=== PATIENT | male | born 2000 | race Caucasian/White ===

== ENCOUNTER 2021-05-09 14:15 | Inpatient (IN) | payer BC, MEDICAID, SELFPAY ==
[2021-05-09 14:57] VITALS: BP 142/98; PULSE 115; RESP 20; TEMP 36.9; O2SAT 100; BMI 21.9
--- NOTE | 2021-05-09 15:21 | ED_ITS ---
HPI - Psych General Chief Complaint: Psychiatric Symptoms Stated Complaint: CRISIS Time Seen by Provider: 05/09/21 15:20 Source: patient Mode of arrival: ambulatory Limitations: no limitations History of Present Illness HPI Narrative: 20-year-old male, no known medical history presents to the emergency department stating he feels like he needs help. He states that today he had conversation with his family feels like he needs a psych evaluation, and placement into a psych facility. He states that for years he has been having intermittent thoughts of suicide, with various plans. At this time he says he thinks about suicide, but he knows he will do it. He denies homicidal ideation. He also states that at times he has visual hallucinations (clouds in the shantel appear like people), he denies tactile and auditory hallucinations. He states he is not followed by a psychiatrist. He denies alcohol, and tobacco use. He states he periodically smokes marijuana. He states that it was a family decision for him to come in and get evaluated. He states he wants help. He has never been hospitalized for psych issues. He also mentions he has been having racing thoughts. Denies depression, anxiety, HI, recent medication changes, pain, medical complaints, chest pain, fevers, chills, nausea, vomiting. MD complaint: suicidal ideation and hallucinations (Visual) Onset (ago): year(s) Duration: intermittent History of same: Yes Relieving factors: none Exacerbating factors: none Context: recent drug abuse ( Marijuana) Associated psychiatric symptoms: suicidal ideation and racing thoughts Associated symptoms: denies other symptoms Treatments prior to arrival: none If self harm: admits thoughts of self harm and has plan Related Data Allergies Allergy/AdvReac Type Severity Reaction Status Date / Time No Known Allergies Allergy Unverified 04/06/20 19:21 [No Known Allergies*] Review of Systems Review of Systems: Constitutional : No Fever, No Chills ENT/Mouth : No Ear Pain, No Nasal Congestion, No sore throat Eyes: No Eye Pain, No Swelling, No Redness Cardiovascular : No Chest Pain, No SOB Respiratory : No Cough, No Sputum, No Dyspnea Gastrointestinal : No Nausea, No Vomiting, No Diarrhea, No Hematochezia, No Melena Genitourinary : No Dysuria, No Urinary Frequency, No Hematuria Musculoskeletal : No Myalgias Skin : No Skin Lesions, No rash Neuro : No Weakness, No Numbness, No Paresthesias, No Dizziness, No Headache Psych : No Anxiety, No Depression, positive SI, No HI, + racing thoughts All other systems reviewed and are negative [facility] Past Medical History Attestation statement: The following information was validated with the patient. Source: old records reviewed and nursing notes reviewed Social History Social History Alcohol intake: unknown Patient Tobacco Use Status: Tobacco use Unknown Use of substances other than those prescribed or required for medical reasons: Unknown Advance Directives: No Advance Directives Information Provided: No Physical Exam Vital Signs: Vital Signs: Last Vital Signs Temp 98.2 F 05/09/21 17: Pulse 63 05/09/21 17: Resp 18 05/09/21 17: BP 128/66 05/09/21 17: Pulse Ox 100 05/09/21 17: Body Mass Index 21.9 Appearance: Alert. Oriented X3. No acute distress. Eyes: Pupils equal, round and reactive to light. ENT: Pharynx normal. Neck: Normal inspection. Neck supple. CVS: Normal heart rate and rhythm. Pulses normal. Respiratory: No respiratory distress. Breath sounds normal. Abdomen: Soft and nontender. Skin: Skin warm and dry. Normal skin color. Normal skin turgor. Extremities: No lower extremity edema. No calf ttp Psych: Patient is speaking rapidly, answering questions appropriately. Neuro: Oriented X 3. No motor deficit. No sensory deficit. CN II-VII intact Course Course Course Narrative: Physician observation started at 640pm. Patient placed in physician observation because the patient needed more time for crisis evaluation At the time observation was started the patient's vitals were stable, patient is alert and oriented , Neuro: nonfocal, CV RRR, Lungs clear MDM - Psych MDM Narrative Medical decision making narrative: 20-year-old male with no previous psych history, medical history presenting to the emergency department with racing thoughts, visual hallucination and suicidal ideation X1 year. He states he came in today, because his family suggested he get a psych evaluation, and be placed into a psych facility. No recent medication changes. Denies drug/tobacco/alcohol use. No previous psych admissions. He has no medical complaints at this time. At this time basic labs will be obtained, consult crisis has been put in, as well COVID, ethanol, UA, U tox. At this time the patient states he would not like any medication. Lab Data Result diagrams: 05/09/21 15:51 05/09/21 15:51 Labs: Lab Results 05/09/21 05/09/21 05/09/21 Range/Units 15:33 15:35 15:38 WBC (4.8-10.8) X10*3/uL RBC (4.60-5.80) X10*6/uL Hgb (14.0-18.0) g/dl Hct (42-52) % MCV (80-98) fL MCH (27.0-33.0) pg MCHC (31.0-36.0) g/dl RDW (11.0-16.0) % Plt Count (160-400) X10*3/uL MPV (9.4-12.4) fL Immature Gran % (Auto) (0.0-0.4) % Neut % (Auto) (45-73) % Lymph % (Auto) (20-40) % [place] % (Auto) (2-11) % Eos % (Auto) (0-4) % Baso % (Auto) (0-2) % Lymph # (Auto) (1.2-4.9) X10*3/uL [place] # (Auto) (0.1-1.2) X10*3/uL Eos # (Auto) (0.0-0.4) X10*3/uL Baso # (Auto) (0.0-0.2) X10*3/uL Abs Immat Gran (auto) (0.00-0.03) X10*3/uL Absolute Neuts (auto) (2.0-8.3) X10*3/uL Absolute Nucleated RBC (0.0-0.012) X10*3/uL Nucleated RBC % (auto) (0.0-0.2) /100WBC Urine Color STRAW Urine Appearance CLEAR Urine pH 7.0 (5.0-8.0) Ur Specific [place] <= 1.005 (1.005-1.025) Urine Protein NEG (NEG-TRACE) MG/DL Urine Glucose (UA) NEG (NEG) MG/DL Urine Ketones NEG (NEG) MG/DL Urine Blood NEG (NEG) Urine Nitrite NEG (NEG) Ur Leukocyte Esterase NEG (NEG) Urine Opiates Screen Not Detected (Not Detect) Urine Fentanyl Screen Not Detected (Not Detect) Ur Barbiturates Screen Not Detected (Not Detect) Ur Phencyclidine Scrn Not Detected (Not Detect) Ur Amphetamines Screen Not Detected (Not Detect) U Benzodiazepines Scrn Not Detected (Not Detect) Urine Cocaine Screen Not Detected (Not Detect) U Marijuana (THC) Screen Not Detected (Not Detect) COVID-19 (DIAZ) Negative (Negative) COVID-19 Clin Com See Note 05/09/21 Range/Units 15:51 WBC 5.3 (4.8-10.8) X10*3/uL RBC 5.28 (4.60-5.80) X10*6/uL Hgb 15.9 (14.0-18.0) g/dl Hct 46.4 (42-52) % MCV 87.9 (80-98) fL MCH 30.1 (27.0-33.0) pg MCHC 34.3 (31.0-36.0) g/dl RDW 12.4 (11.0-16.0) % Plt Count 141 L (160-400) X10*3/uL MPV 11.8 (9.4-12.4) fL Immature Gran % (Auto) 0.2 (0.0-0.4) % Neut % (Auto) 56.9 (45-73) % Lymph % (Auto) 27.2 (20-40) % [place] % (Auto) 10.0 (2-11) % Eos % (Auto) 5.1 H (0-4) % Baso % (Auto) 0.6 (0-2) % Lymph # (Auto) 1.4 (1.2-4.9) X10*3/uL [place] # (Auto) 0.5 (0.1-1.2) X10*3/uL Eos # (Auto) 0.3 (0.0-0.4) X10*3/uL Baso # (Auto) 0.0 (0.0-0.2) X10*3/uL Abs Immat Gran (auto) 0.01 (0.00-0.03) X10*3/uL Absolute Neuts (auto) 3.0 (2.0-8.3) X10*3/uL Absolute Nucleated RBC 0.000 (0.0-0.012) X10*3/uL Nucleated RBC % (auto) 0.0 (0.0-0.2) /100WBC Urine Color Urine Appearance Urine pH (5.0-8.0) Ur Specific [place] (1.005-1.025) Urine Protein (NEG-TRACE) MG/DL Urine Glucose (UA) (NEG) MG/DL Urine Ketones (NEG) MG/DL Urine Blood (NEG) Urine Nitrite (NEG) Ur Leukocyte Esterase (NEG) Urine Opiates Screen (Not Detect) Urine Fentanyl Screen (Not Detect) Ur Barbiturates Screen (Not Detect) Ur Phencyclidine Scrn (Not Detect) Ur Amphetamines Screen (Not Detect) U Benzodiazepines Scrn (Not Detect) Urine Cocaine Screen (Not Detect) U Marijuana (THC) Screen (Not Detect) COVID-19 (DIAZ) (Negative) COVID-19 Clin Com Discharge Plan Discharge Clinical Impression: Rhina
[2021-05-09 15:57] LABS: MANUAL DIFF FLAG NO
[2021-05-09 16:00] LABS: Appearance Urine CLEAR; Color Urine STRAW; Glucose Urine UA NEG (NEG); Leukocyte Esterase Urine NEG (NEG); Nitrite Urine NEG (NEG); Specific Gravity - Urine <= 1.005 (1.005-1.025); Urine Blood NEG (NEG); Urine Ketones NEG (NEG); Urine Protein NEG (NEG-TRACE)
[2021-05-09 16:00] LABS: Basophils Percent Auto 0.6 % (0-2); Eosinophils Absolute Auto 0.3 X10*3/uL (0.0-0.4); Eosinophils Percent Auto 5.1 % (0-4); Hematocrit 46.4 % (42-52); Hemoglobin 15.9 g/dl (14.0-18.0); Imm Gran Abs Auto 0.01 X10*3/uL (0.00-0.03); Imm Gran Pct Auto 0.2 % (0.0-0.4); Lymphocytes Absolute Auto 1.4 X10*3/uL (1.2-4.9); Lymphocytes Percent Auto 27.2 % (20-40); Mean Corpuscular HGB Conc 34.3 g/dl (31.0-36.0); Mean Corpuscular Hemoglobin 30.1 pg (27.0-33.0); Mean Corpuscular Volume 87.9 fL (80-98); Mean Platelet Volume 11.8 fL (9.4-12.4); Monocytes Absolute Auto 0.5 X10*3/uL (0.1-1.2); Neutrophils Percent Auto 56.9 % (45-73); Platelet Count 141 X10*3/uL (160-400); Red Blood Count 5.28 X10*6/uL (4.60-5.80); Red Cell Distribution Width 12.4 % (11.0-16.0); White Blood Count 5.3 X10*3/uL (4.8-10.8)
[2021-05-09 16:13] LABS: Amphetamine Screen Urine Not Detected (Not Detect); Barbiturates, Urine Not Detected (Not Detect); Benzodiazepines Screen Urine Not Detected (Not Detect); Cannabinoid Screen Urine Not Detected (Not Detect); Cocaine Screen Urine Not Detected (Not Detect); Fentanyl, urine Not Detected (Not Detect); Opiate Screen Urine Not Detected (Not Detect); Phencyclidine Screen Urine Not Detected (Not Detect)
[2021-05-09 16:20] LABS: COVID-19 Test Negative (Negative)
--- NOTE | 2021-05-09 16:31 | PC.NURSE ---
kayli referral sent to [facility]
--- NOTE | 2021-05-09 17:15 | PC.NURSE ---
Spoke with Monica from [facility]. They will not be able to see pt until their 3rd or 1st shift. CARE team notified.
[2021-05-09 17:27] VITALS: BP 128/66; PULSE 63; RESP 18; TEMP 36.8; O2SAT 100
--- NOTE | 2021-05-09 18:11 | PC.NURSE ---
Pt resting comfortably in bed at current, no complaints or signs of distress. Pt waiting to be seen by CARE team
--- NOTE | 2021-05-10 06:21 | PC.NURSE ---
Patient slept through the night, no distress observed/reported, patient is not on any medication, behavior appropriate, disposition per care team is section 12 inpatient bed search, will continue to monitor.
[2021-05-10 06:47] VITALS: BP 115/75; PULSE 76; RESP 16; TEMP 36.6; O2SAT 98
--- NOTE | 2021-05-10 08:49 | MHC.CARE ---
CARE Team contacted financial counseling regarding Pt being uninsured to assist with MH.
[2021-05-10 11:03] LABS: Alanine Aminotransferase 17 U/L (0-40); Albumin Level 4.6 g/dL (3.5-5.0); Alkaline Phosphatase 64 U/L (39-117); Anion Gap 9 (12-20); Aspartate Amino Transferase 17 U/L (5-37); Bilirubin Total 1.1 mg/dL (0.0-1.0); Blood Urea Nitrogen 11 mg/dL (9-16); Calcium 10.1 mg/dL (8.4-10.2); Carbon Dioxide 31 mmol/L (22-29); Chloride 105 mmol/L (96-108); Estimated Glomerular Filt Rate > 60; Glucose Random 93 mg/dL (60-115); Potassium 4.3 mmol/L (3.3-5.1); Sodium 141 mmol/L (135-145); Total Protein 7.3 g/dL (6.5-8.0)
[2021-05-10 13:45] VITALS: BP 105/65; PULSE 102; TEMP 37.2; O2SAT 100
[2021-05-10 18:00] VITALS: BP 135/72; PULSE 102; TEMP 36.8
--- NOTE | 2021-05-10 20:46 | PC.ADMIT ---
Pt is a 20 year old male who presents to [facility] from [facility] at approx 14:52 on a cv status. Pt is covid -. Utox- Pt self reported that he uses THC, had used LSD less than 5 times, used mushrooms less than 5 times. Per chart review, pt was assessed by CARE at [facility] ED after his family convinced him to come in to get help. Pt has seemingly been decompensating over the past few months. Pt reported he worked at [employer] and was doing okay until he felt lke his brain felt dumb . Pt mentioned that he did not want to continue working and has cut off the majority of his friends. Pt is not currently taking medications and does not want to start on any medications per pt. Pt mentioned that his mother is a control freak and feels that most of his anxiety comes from his enviorment and mother. Pt denies SI/HI/pain/AH. Pt reported denied VH, but mentioned that he get VH when he becomes emotional. Pt is feeling hopeless and want to have a therapist. called and notified for orders of admission. Pt had tangential thoughts and seemed to get confused or forget questions. Start treatment plan and monitor for safety.
--- NOTE | 2021-05-10 21:18 | PC.NURSE ---
pt signed a 3-day notice on 05/10/21, up on 05/15/21
--- NOTE | 2021-05-10 23:15 | HO.PSYADMNOT ---
HPI Date of Service: 05/10/21 Chief Complaint: r/o oly Sources of Information: patient interviewed, chart reviewed and crisis/core team assessment reviewed HPI Subjective Notes: Padilla Warning, Conditional Voluntary and 3 Day Healthcare Proxy: No Guardianship: No Medical Problems Affecting Mental Status: No Narrative: Pt is a 20 y.o. Male who self-presented to [facility] at the urging of his family members (mom dropped him off), pt stated ?he needs help.? Per CARE team assessment, this is his first presentation of abnormal behaviors and suicidal thoughts. He stated he has had visual hallucinations (clouds in the shantel appear like people) and racing thoughts. Utox negative. Denies hyposomnia and per collateral contacts, both his mom and grandma report that he sleeps for most of the day everyday. Pt endorsed SI but denied plan or intent. Pt?s mom and grandma report that pt is unmotivated and withdrawn, does not socialize with his friends or with the family. I evaluated the pt this evening and upon inquiry he reports he came to the hospital due to ?a family decision, i've never had help ever before.? He denies feeling depressed today and says this is the best he has felt in days but that ?I still have strides downard into misery, it hurts other people around me, but not me.? He reports onset of depression as when his ?dad abandoned me? at age 9 and ?it dominoed from there.? Pt currently denies issues with sleep and states he gets 8-10 hours of sleep at night and does not want to get out of bed because ?its comfy.? Reports he had difficulty with falling asleep in childhood, felt his mind was ?like a huge storm.? When asked to elaborate on this, pt stated ?I?m very imaginative, even now when I get into a downward in a spiral, my perception goes into nightmare realm.? Says he has a hx of mood fluctuations and that ?I?ve been up to mika, matt been at both spectrums, and now I?m trying to control the middle.? Pt reports that ?yesterday I cried? and was ?feeling numb a lot.? States he cried because he told his mom he wants to be an artist, ?im an artist in a closet,? but she was ?dismissive and said that?s not realistic.? Says when he is down, he ?snaps at people, usually i?m a calm person.? Per pt, he is struggling with ?racing thoughts,? ?im very frantic, all over the place,? ?Im very energetic right now.? When asked if this feels good to him, he stated ?sometimes it feels good if I have a new idea, the majority is a signal to me you gotta be present.? He describes his mood states as being ?signals? and that if he is anxious its a signal that ?im spiraling out? and if he is depressed its a signal that ?I need to destroy myself and rebuild.? Says he barbie with sx of depression by meditating, likes to be isolated, ?I force myself to go into myself.? Reports hx of AH, onset in 2019 while working at a [employer], says this happened 3-4 times and described it as ?imagination overlays,? would see his coworkers ?head shot.? Appetite is good. Denies SI/SIB/HI, says he feels safe. Throughout interview, pt presents with sx of hypomania including tangential thoughts, grandiose ideations, and inattention. Current meds: none Past Psychiatric History: -Per prev records, in 2017 pt presented to [place] ED on section 12a via ambulance at the request of [place] police due to depression, SI. Precipitating fx included argument with his mother due to not wanting to go to a family democrat. He stated that during the argument, she threatened to change his school and call the police if he did not attend the democrat. -No hx of prev psych hx other than [facility] crisis eval in 2017. Dispo was f/u with PCP. Medical Evaluation Reviewed: Yes PMFSH Narrative: -Denies hx of seizures -Denies hx of TBI/ concussion -Denies hx of cardiac issues Family History: -Denies FH of psychosis or bipolar disorder, collateral hx needed -Sister: ADHD Social History: -Pt is currently staying with his grandparents after being kicked out of his mom's house (recent occurrence). Prev staying with his bio mother, younger brother, and step father. Describes his mom as ?controlling? and ?verbally abusive.? -Graduated h.s. At [employer]. No hx of IEP or 504 plan. Pt reports he had good grades up until senior year and that he took AP nepalese. Denies hx of being diagnosed with ADHD. Says he enrolled in [employer] but dropped out because his mom wanted him to work and he did not think he could manage both. Worked at a [employer] for 1.5 yrs and was let go from this job in May,. Substance History: -LSD, psilocybin: has used 10-12 times, says it has been ?months? since last use, onset age 18. Used first time with friends, then proceeded to use alone. -Cannabis: used 5 times in past 6 mo Trauma History: -Pt reports his dad abandoned him at age 9 Diagnostics Vital Signs (24Hr): Vital Signs - 24 hr 05/10/21 06:47 05/10/21 13:45 05/10/21 18:00 Temperature 97.9 F 99.0 F 98.3 F Pulse Rate 76 102 H 102 H Respiratory Rate 16 Blood Pressure 115/75 105/65 135/72 Pulse Oximetry 98 100 Body Mass Index 21.9 Labs Results: 05/09/21 15:51 05/10/21 10:32 Labs: Laboratory Results - last 48 hr 05/09/21 05/09/21 05/09/21 15:33 15:35 15:38 WBC RBC Hgb Hct MCV MCH MCHC RDW Plt Count MPV Immature Gran % (Auto) Neut % (Auto) Lymph % (Auto) [place] % (Auto) Eos % (Auto) Baso % (Auto) Lymph # (Auto) [place] # (Auto) Eos # (Auto) Baso # (Auto) Abs Immat Gran (auto) Absolute Neuts (auto) Absolute Nucleated RBC Nucleated RBC % (auto) Sodium Potassium Chloride Carbon Dioxide Anion Gap BUN Creatinine Estim Creat Clear Calc Estimated GFR Random Glucose Calcium Total Bilirubin AST ALT Alkaline Phosphatase Total Protein Albumin Urine Color STRAW Urine Appearance CLEAR Urine pH 7.0 Ur Specific [place] <= 1.005 Urine Protein NEG Urine Glucose (UA) NEG Urine Ketones NEG Urine Blood NEG Urine Nitrite NEG Ur Leukocyte Esterase NEG Urine Opiates Screen Not Detected Urine Fentanyl Screen Not Detected Ur Barbiturates Screen Not Detected Ur Phencyclidine Scrn Not Detected Ur Amphetamines Screen Not Detected U Benzodiazepines Scrn Not Detected Urine Cocaine Screen Not Detected U Marijuana (THC) Screen Not Detected Ethyl Alcohol COVID-19 (DIAZ) Negative COVID-19 Clin Com See Note 05/09/21 05/09/21 05/09/21 15:51 Unknown Unknown WBC 5.3 RBC 5.28 Hgb 15.9 Hct 46.4 MCV 87.9 MCH 30.1 MCHC 34.3 RDW 12.4 Plt Count 141 L MPV 11.8 Immature Gran % (Auto) 0.2 Neut % (Auto) 56.9 Lymph % (Auto) 27.2 [place] % (Auto) 10.0 Eos % (Auto) 5.1 H Baso % (Auto) 0.6 Lymph # (Auto) 1.4 [place] # (Auto) 0.5 Eos # (Auto) 0.3 Baso # (Auto) 0.0 Abs Immat Gran (auto) 0.01 Absolute Neuts (auto) 3.0 Absolute Nucleated RBC 0.000 Nucleated RBC % (auto) 0.0 Sodium Cancelled Potassium Cancelled Chloride Cancelled Carbon Dioxide Cancelled Anion Gap Cancelled BUN Cancelled Creatinine Cancelled Estim Creat Clear Calc Cancelled Estimated GFR Cancelled Random Glucose Cancelled Calcium Cancelled Total Bilirubin Cancelled AST Cancelled ALT Cancelled Alkaline Phosphatase Cancelled Total Protein Cancelled Albumin Cancelled Urine Color Urine Appearance Urine pH Ur Specific [place] Urine Protein Urine Glucose (UA) Urine Ketones Urine Blood Urine Nitrite Ur Leukocyte Esterase Urine Opiates Screen Urine Fentanyl Screen Ur Barbiturates Screen Ur Phencyclidine Scrn Ur Amphetamines Screen U Benzodiazepines Scrn Urine Cocaine Screen U Marijuana (THC) Screen Ethyl Alcohol Cancelled COVID-19 (DIAZ) COVID-19 Clin Com 05/10/21 10:32 WBC RBC Hgb Hct MCV MCH MCHC RDW Plt Count MPV Immature Gran % (Auto) Neut % (Auto) Lymph % (Auto) [place] % (Auto) Eos % (Auto) Baso % (Auto) Lymph # (Auto) [place] # (Auto) Eos # (Auto) Baso # (Auto) Abs Immat Gran (auto) Absolute Neuts (auto) Absolute Nucleated RBC Nucleated RBC % (auto) Sodium 141 Potassium 4.3 Chloride 105 Carbon Dioxide 31 H Anion Gap 9 L BUN 11 Creatinine 0.93 Estim Creat Clear Calc 117.0 Estimated GFR > 60 Random Glucose 93 Calcium 10.1 Total Bilirubin 1.1 H AST 17 ALT 17 Alkaline Phosphatase 64 Total Protein 7.3 Albumin 4.6 Urine Color Urine Appearance Urine pH Ur Specific [place] Urine Protein Urine Glucose (UA) Urine Ketones Urine Blood Urine Nitrite Ur Leukocyte Esterase Urine Opiates Screen Urine Fentanyl Screen Ur Barbiturates Screen Ur Phencyclidine Scrn Ur Amphetamines Screen U Benzodiazepines Scrn Urine Cocaine Screen U Marijuana (THC) Screen Ethyl Alcohol COVID-19 (DIAZ) COVID-19 Clin Com Meds/Allergies Meds Home Medications Acetaminophen (Acetaminophen 325 Mg Tablet) 650 mg PO Q6H PRN PRN Reason: Headache/Pain Mild Scale (1-3) Al Hydroxide/Mg Hydroxide (Magnesium Hydrox/Alum Hydrox 30 Ml Oral.Susp) 30 ml PO Q6H PRN PRN Reason: Heartburn/Nausea Hydroxyzine HCl (Hydroxyzine Hcl 25 Mg Tablet) 25 mg PO BEDTIME PRN PRN Reason: Anxiety Magnesium Hydroxide (Milk Of Magnesia 30 Ml Oral.Susp) 30 ml PO DAILY PRN PRN Reason: Constipation Quetiapine Fumarate (Quetiapine Fumarate 25 Mg Tablet) 25 mg PO TID PRN PRN Reason: VH, anxiety, agitation Trazodone HCl (Trazodone Hcl 50 Mg Tablet) 50 mg PO BEDTIME PRN PRN Reason: Insomnia Allergies Allergies Allergy/AdvReac Type Severity Reaction Status Date / Time No Known Allergies Allergy Unverified 04/06/20 19:21 [No Known Allergies*] Mental Status Exam Mental Status Exam Narrative: A&O except to situation (pt reports wanting help but he is also denying depression and says he came to the hospital at request of family). In hospital attire, not malodorous, earrings, normal body habitus. Good eye contact, inattentive. No Tics or Tremors. No abnormal involuntary movements. Calm, cooperative, engageable. Non-pressured speech, spontaneous with increased rate and rhythm, normal volume. No prolonged speech latency or dysarthria. Mood is ?better,? affect is somewhat elated. Denies SI/SIB/HI upon inquiry. Endorses recent AH, denies VH. Presents with grandiose ideations, i.e. 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 Thoughts are tangential. No known cognitive or memory impairment. Insight/ Judgment limited but adequate. Assessment & Plan Assessment & Plan (1) Bipolar II disorder: Status: Acute Code(s): F31.81 - Bipolar II disorder Assessment and Plan: Pt is a 20 y.o. Male who self-presented to [facility] at the urging of his family members (mom dropped him off), pt stated ?he needs help.? He is presenting with sx of hypomania including tangential thoughts, grandiose ideations, and inattention. Reports mood was depressed but is improving since being at the hospital. Sx of depression include agitation, SI, avolition, and hypersomnia. He currently denies issues with sleep but may need more collateral info. Denies hx of ADHD. No hx of special education, attended vocational h.s. Substance use hx significant for using LSD 10-12 times since age 18, although denies recent use. Plan: Continue to monitor pt for sx of hypomania, gather further collateral hx from family. Pt declines medication management at this time but would like to talk with primary psych provider about this during admission. He is interested in OP therapy. . Monitor for safety in the milieu. Discharge on stabilization. Patient seen. Chart reviewed. Discussed with team. Reason for continued inpatient stay Substantial Risk for: harm to self, rapid decompensation and med/psych decompensation
[2021-05-11 06:00] VITALS: BP 118/67; PULSE 88; RESP 18; TEMP 36.6; O2SAT 100
--- NOTE | 2021-05-11 09:00 | ECG_ITS ---
Test Reason : r/o qtc prolong Blood Pressure : / mmHG Vent. Rate : 057 BPM Atrial Rate : 057 BPM P-R Int : 112 ms QRS Dur : 090 ms QT Int : 400 ms P-R-T Axes : 051 081 062 degrees QTc Int : 389 ms Sinus bradycardia with sinus arrhythmia Otherwise normal ECG No previous ECGs available Referred By: Ivanna Monsalve Electronically Signed By:THOMAS BEAUCHAMP MD
[2021-05-11 09:10] LABS: Estimated Average Glucose 97 mg/dL
[2021-05-11 09:28] LABS: Cholesterol 166 mg/dL; HDL Cholesterol 45 mg/dL; LDL Cholesterol Calculated 100 mg/dl; Triglycerides 105 mg/dL
[2021-05-11 09:50] LABS: Free T4 (Free Thyroxine) 1.03 ng/dL (0.71-1.85); Thyroid Stimulating Hormone 2.01 uIU/mL (0.32-4.0)
[2021-05-11 10:06] LABS: Folate 10.9 ng/mL (> or = 4.0); Vitamin B12 374 pg/mL (200-900)
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
[2021-05-11 18:00] VITALS: BP 118/72; PULSE 84; RESP 16; TEMP 36.7
[2021-05-12] MEDS: Acetaminophen 325 MG TABLET 650 MG PO (02:35)
[2021-05-12 18:00] VITALS: BP 131/66; PULSE 81; RESP 18; TEMP 36.9; O2SAT 81
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
[2021-05-13 06:00] VITALS: BP 103/57; PULSE 76; RESP 16; TEMP 35.8; O2SAT 98
[2021-05-13 17:45] VITALS: BP 147/84; PULSE 64; RESP 16; TEMP 36.7; O2SAT 100
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
[2021-05-14] MEDS: Melatonin 3 MG TABLET 9 MG PO (00:53)
[2021-05-14 08:21] VITALS: BP 142/61; PULSE 71; O2SAT 96
[2021-05-14] MEDS: Methylphenidate HCl 10 MG TABLET PO (08:52)
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
[2021-05-14 18:00] VITALS: BP 138/89; PULSE 103; TEMP 36.8; O2SAT 100
[2021-05-15] MEDS: traZODone HCL 50 MG TABLET PO (02:31)
[2021-05-15 06:00] VITALS: BP 106/51; PULSE 86; RESP 18; TEMP 36.7; O2SAT 98
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
== END 2021-05-15 14:57 | disposition home or self-care (01) | DRG 753 ==
LOC: HO.ED 15:04 → HO.PM5 05-10 14:29
PROVIDERS: Physician Assistant; Admitting Provider Clinical Nurse Specialist Psychiatric/Mental Health, Adult; Emergency Provider Emergency Medicine; Visit Provider Psychiatry & Neurology Psychiatry
DX: F31.81 Bipolar II disorder (principal); R45.851 Suicidal ideations; Z20.822 Contact with and (suspected) exposure to COVID-19
CPT/HCPCS: 36415; 80053; 80061; 80307; 81003; 82077; 82607; 82746; 83036; 84439; 84443; 85025; 87635; 93005; 99285

== ENCOUNTER 2021-06-12 11:15 | Outpatient (RCR) | payer BC, OTHER, SELFPAY ==
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
[2021-05-24 12:55] VITALS: BMI 22.0
--- NOTE | 2021-05-24 15:03 | PC.ADMIT ---
Patient is a 20 year old male who was referred to the [facility] Partial Hospitalization Program as a step down to treatment from [facility] inpatient unit where patient was hospitalized d/t abnormal behaviors and suicidal thoughts. Patient reportedly has been sleeping most of the day on a daily basis and has been unmotivated, withdrawn and not socializing with friends or family. Patients' father reportedly abandoned patient when he was 9 years old and this greatly affected patient. Reports having paranoid thoughts, mu-ism things thinking others can hear his thoughts. Patient is alert and oriented x4. Calm and cooperative. Stated he is not sure the program is for him however is willing to try it for a few days. Stated he prefers 1:1 treatment on a daily basis. Patient did state he is here to, clarify mental issues, trauma, and depression . Patient is not on any prescribed medications. 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 Patient reports history of using hallucinogenics using them about 10 times. Educated patient about the negative effects of hallucinogenics however patient minimized the possible negative effects it could have on his mental health and brain and stated it helps him clarify things. Encouraged patient to do research regarding this.
--- NOTE | 2021-05-24 16:28 | PC.NURSE ---
Case opened in treatment team.
--- NOTE | 2021-05-29 14:07 | PC.NURSE ---
I called and spoke to pt. He reported feeling supported by the group, and having an overall good experience in [facility]. He attributed good feeling to having time and space to focus on himself. He expressed some fear around returning to life as usual ( [place] ) after discharge. We discussed options for support following discharge. Pt indicated he might be interested in a substance use group, and included that he doesn't have a problem with substances now. I gave information about AA, NA, and [facility]. He reported an interest in meditation and Yazidism, and said he'd like to try [facility]. He said he has an appt with his new therapist today through [facility]. We discussed next Friday the as a possible discharge day.
--- NOTE | 2021-05-31 14:17 | P.PNPSP_ITS ---
Subjective Subjective Date of Service: 05/31/21 Reason For Visit: Bipolar II Disorder Interim History: Patient seen and discussed with team. Patient evaluated this morning and upon interview he reports he has felt amazing actually, has noticed improved mood ever since three days ago. Zoila ttributes this to being able to identify anxiety, says he has a hx of anxiety storms but feels he has learned how to deal with it. Says he has benefited from PHP because he likes being able to be in an environment where i could help myself out without rushing. Also says he has had a couple talks with my inner child, hasnt happened in a while, Has been doing things to nurture that i.e. Watching anime. Says these last three days, I feel like me. Does not want medication management at this time, stating as long as in space where everyday im mindful, as long as i keep that theme everyday, i think im good. Mental Status Exam Mental Status Exam Narrative: Well developed, well-nourished male, in no apparent distress.? Appears stated age.? No involuntary movements noted, motor activity calm, posture within normal limits. Patient Appearance:?Well Grooomed and Appropriate Patient Orientation:?Person, Place, Time and Situation Level of Consciousness:?Awake, Appropriate and Alert Patient Behavior:?Guarded, Talkative, Cooperative and Good Eye Contact Mood Description:?Calm and Appropriate Affect Description:?Calm, Appropriate and Expansive Patient Cognition Impaired:?No Ability to Follow Directions:?Excellent Speech Pattern:?Clear, Rambling, Rapid (at times) and Pressured (at times) Memory Description:?Intact Hallucinations:?None (Client denies, although does appear to be responding to internal stimuli at times during encounter.) Delusions:?Grandiose Thought Process:?Distracted and Evasive Thought Content:?positive for Flight of Ideas, positive for Perseveration, positive for Loose Associations, positive for Tangential and positive for Disorganized Depressive Symptoms:?Diff. Making Decisions and Difficulty Concentrating Judgement:?Poor Judgement and Insight:?Client displayed little to no insight into psychiatric symptoms or substance use. Diagnostics Vital Signs (24Hr): Body Mass Index 22.0 Assessment & Plan Assessment & Plan (1) Bipolar II disorder: Status: Acute Code(s): F31.81 - Bipolar II disorder Assessment and Plan: Pt continues to displays symptoms of hypomania, including distractibility, grandiose/ bizarre thought content. He denies hyposomnia.?Continues to have preoccupation with natural world and states he prefers mindfulness and meditation based strategies for his sx. Discussed lamictal. However, pt is still not interested in taking medications at this time. Denies SI/SIB/HI, no safety concerns. Hx significant for heavy LSD abuse. Continue to be interested in OP therapy and has discussed [facility] with PHP therapist. Assessment and Plan: 1. Follow-up as per protocol. Patient educated on: medication risk/benefits and therapeutic strategies Certification I certify that partial hospital treatment is medically necessary due to the symptoms and problems resulting from the patient's mental illness and the failure to treat the patient at the partial hospital level of care would likely result in the patient requiring inpatient psychiatric care which could not be prevented at a less intensive level of care. I spent minutes with the patient and/or on the patient floor today, greater than?50% of which was spent counseling/coordinating care. Discharge Plan Discharge Attending provider: José Antonio Nguyen Medications: No Action No Known Home Meds RF: 0
--- NOTE | 2021-06-07 15:49 | P.PNPSP_ITS ---
Subjective Subjective Date of Service: 06/07/21 Reason For Visit: Bipolar II Disorder Guardianship: No Medical Problems Affecting Mental Status: No Interim History: Eduardo reports feeling ?disturbed, not at peace today ?. When asked to elaborate, he stated that he is feeling anxious and worried. That he is not able to be mindful, that he is trying to figure out different definitions of anxiety and depression. He endorses decreased energy, reports having headache from stress and anxiety. Reports thinking is clouded. States ?my emotion dictates what I think of .... . Reports that his thoughts are distracted, and that he feels like he is falling off of topics, from trying to be good. Attending Groups: Yes Review of Systems Acute medical concerns: No Medical Review of Systems: unchanged Review of Systems Review of Systems Yes all other systems are reviewed and are negative Constitutional: Reports no additional constitutional complaints Eyes: Reports no additional eye complaints Reports Normal hearing present Cardiovascular: Reports no additional cardiovascular complaints Respiratory: Reports no additional respiratory complaints Gastrointestinal: Reports no additional gastrointestinal complaints Genitourinary: Reports no additional male genitourinary complaints Musculoskeletal: Reports no additional musculoskeletal complaints Skin/Breast: Reports system reviewed and no additional complaints, except as docu Reports Normal hearing present Mental Status Exam Mental Status Exam Narrative: Well-developed, well-nourished male, in NAD. Presents with loose, disorganized thought process. Sitting in chair, posture within normal limits. No involuntary movements noted, motor activity calm. Denies any thought of harm to self or others. Denies AH, VH, tactile hallucinations. Did not appear to be responding to any type of internal stimuli. Ambulation not observed. Patient Appearance: Well Grooomed and Appropriate Patient Orientation: Person, Place, Time and Situation Level of Consciousness: Appropriate and Alert Patient Behavior: Cooperative, Distractible and Good Eye Contact Mood Description: Anxious Affect Description: Appropriate and Anxious Patient Cognition Impaired: No Ability to Follow Directions: Excellent Speech Pattern: Clear and Appropriate Memory Description: Intact Hallucinations: None Delusions: Present Perceptual Disturbances: Depersonalization Thought Process: Illogical and Distracted Thought Content: positive for Circumstantial, positive for Thought Blocking and positive for Tangential Depressive Symptoms: Increased Anxiety and Difficulty Concentrating Judgement: Fair Diagnostics Vital Signs (24Hr): Body Mass Index 22.0 Assessment & Plan Assessment & Plan (1) Bipolar II disorder: Status: Acute Code(s): F31.81 - Bipolar II disorder Assessment and Plan: Client presents with loose, disorganized thought process. Reports that he is having difficulty sorting his thoughts, and feels that he needs to spend time in contemplation and research, but has difficulty articulating concerns, trails off at times, no linear and logical process noted. Looseness of association appears present. When asked about his thoughts, client reports that he has used LSD in the past as it help sort and organized his thoughts. He reports that he has not used LSD for months. We discussed medications. Lamictal had been mentioned in a previous interview, client states he would like something that works faster. We discussed indications of use, risks, benefits, side effects, and alternatives. We also discussed several atypical antipsychotics, including Abilify and risperidone. He states he is willing to try Abilify for several days, and to see if he has any side effects. Assessment and Plan: 1. Abilify 10mg started, 4 day-script sent. 2. Follow-up with client Friday. Patient educated on: diagnosis, medication risk/benefits, substance abuse and therapeutic strategies Informed Consent: understands Reason for contiued partial hosp. stay Substantial Risk for: inability to function and rapid decompensation Certification I certify that partial hospital treatment is medically necessary due to the sym ptoms and problems resulting from the patient's mental illness and the failure to treat the patient at the partial hospital level of care would likely result in the patient requiring inpatient psychiatric care which could not be prevented at a less intensive level of care. I spent minutes with the patient and/or on the patient floor today, greater than?50% of which was spent counseling/coordinating care. Discharge Plan Discharge Attending provider: José Antonio Nguyen Medications: New aripiprazole [Abilify] 10 mg tablet 10 mg PO DAILY Qty: 4 RF: 0 Telehealth Telehealth Location of provider rendering services: practice address Location of patient: address on file Patient Identification confirmed using: Name, : Yes Telehealth method: video Patient verbally consented to treatment: Yes Patient verbally consented to billing insurance company: Yes Patient informed of any privacy concerns related to visit: Yes Time spent with patient (mins): 15
--- NOTE | 2021-06-11 14:21 | PC.NURSE ---
I spoke to pt between groups about resources for supports. We discussed [facility] and [employer] for options. I then emailed him informing him of the [facility] and about the groups there. I suggested their hearing voices group, and let him know that you don't have to have ever had the symptoms of hearing voices.
--- NOTE | 2021-06-12 14:24 | PC.NURSE ---
I called and LM for Ann Marie Flowers at [facility], pt's new therapist. I let her know about pt's discharge today from [facility].
--- NOTE | 2021-06-12 15:17 | HO.PHPPROGNO ---
Subjective Subjective Date of Service: 06/12/21 Reason For Visit: Bipolar II Disorder Guardianship: No Medical Problems Affecting Mental Status: No Interim History: Eduardo reports that he only took the prescribed Abilify 1 day, and then stopped it. He reports that it made him feel ill, affected his vision, nauseous, and dizzy. He states that he has resumed using marijuana several days ago, and that it is helping control his anxiety. He states that he is not interested in any type of medication at this time. Medication Compliance: No Side effects from medications: Yes (Reports multiple side effects from 1 day dose of Abilify.) Attending Groups: Yes Review of Systems Acute medical concerns: No Medical Review of Systems: unchanged Mental Status Exam Mental Status Exam Narrative: Well-developed, well-nourished male, in NAD. Presents with rapid, somewhat pressured speech. No involuntary movements noted, motor activity calm. Denies any thought of harm to self or others. Denies AH, VH, tactile hallucinations. Did not appear to be responding to any type of internal stimuli. Ambulation not observed. Patient Appearance: Well Grooomed and Appropriate Patient Orientation: Person, Place, Time and Situation Level of Consciousness: Appropriate and Alert Patient Behavior: Cooperative, Distractible and Good Eye Contact Mood Description: Appropriate and Expansive Affect Description: Euphoric, Appropriate and Expansive Patient Cognition Impaired: No Ability to Follow Directions: Excellent Speech Pattern: Clear, Appropriate (overall appropriate, although rapid, pressured at times. ), Rapid, Pressured and Excited Memory Description: Intact Hallucinations: None Delusions: Not Present (No evidence of delusional thoughts at this time.) Thought Process: Intact, Distracted and Goal Oriented Thought Content: positive for Intact, positive for Circumstantial and positive for Tangential Depressive Symptoms: Increased Anxiety and Difficulty Concentrating Judgement: Fair Diagnostics Vital Signs (24Hr): Body Mass Index 22.0 Assessment & Plan Assessment & Plan (1) Bipolar II disorder: Status: Acute Code(s): F31.81 - Bipolar II disorder Assessment and Plan: Patient presents with slightly pressured, rapid speech. He reports that his main problem is anxiety, and that ?I had a mental fog, which is now gone . He reports that he took the Abilify for 1 day, but that it made him feel sick. He states he stopped taking it, and has no intention to take any other medications at this time. He states that he has begun self medicating with marijuana several days ago, and that ?my thoughts are now more clear ?. He states he intends to continue using marijuana in order to treat any type of mood symptoms going forward. He states he believes he had anxiety, which led to depression. Now that he has resumed using marijuana, both the depression and anxiety are now gone. Denies any thought of harm to self or others, no safety concern at this time. He reports that he is looking online for another support group, and that he also has a therapist lined up. He states that he feels these will be sufficient in order to help with his symptoms going forward. He states he feels stable for discharge at this point. (2) Cannabis abuse: Status: Acute Code(s): F12.10 - Cannabis abuse, uncomplicated Assessment and Plan: Client reports he has resumed using marijuana, and the us his symptoms regarding mood have resolved. He states that today is the ?2nd best day in months ?. Denies any type of thought of harm to self or others, denies any AH, VH. Client asked this conventional mortgage underwriter had to obtain a medical marijuana card. He was referred to speak to his own medical provider going forward regarding this. (3) PTSD (post-traumatic stress disorder): Status: Acute Code(s): F43.10 - Post-traumatic stress disorder, unspecified Assessment and Plan: Patient denies any symptoms of PTSD at this time. Assessment and Plan: 1. Patient reports he feels stable for discharge at this time. Denies any thought of harm to self or others. 2. Follow-up with outpatient therapist going forward. Patient educated on: diagnosis, medication risk/benefits, substance abuse and therapeutic strategies Informed Consent: understands Reason for contiued partial hosp. stay Substantial Risk for: stable for discharge Certification I certify that partial hospital treatment is medically necessary due to the symptoms and problems resulting from the patient's mental illness and the failure to treat the patient at the partial hospital level of care would likely result in the patient requiring inpatient psychiatric care which could not be prevented at a less intensive level of care. I spent minutes with the patient and/or on the patient floor today, greater than?50% of which was spent counseling/coordinating care. Discharge Plan Discharge Attending provider: José Antonio Nguyen Additional Instructions: Appointment with Ann Marie Flowers therapist at [facility] today, 06/12/21, at 4pm. [employer] for groups (discussed the [facility] group) or [employer] for group support. Access [employer] online for help with sobriety. Medications: New aripiprazole [Abilify] 10 mg tablet 10 mg PO DAILY Qty: 4 RF: 0 Stand Alone Forms: Patient Portal Discharge page Telehealth Telehealth Location of provider rendering services: practice address Location of patient: address on file Patient Identification confirmed using: Name, : Yes Telehealth method: video Patient verbally consented to treatment: Yes Patient verbally consented to billing insurance company: Yes Patient informed of any privacy concerns related to visit: Yes Time spent with patient (mins): 15
--- NOTE | 2021-06-13 14:39 | PC.NURSE ---
Patient discharged from [facility] on 06/12/21. Called patient to review discharge paperwork however patients phone is not active at this time.
== END 2021-06-13 08:33 | disposition home or self-care (01) ==
LOC: HO.PHPA 11:15
PROVIDERS: Visit Provider Psychiatry & Neurology Psychiatry
DX: F31.81 Bipolar II disorder (principal); F12.10 Cannabis abuse, uncomplicated
CPT/HCPCS: 90791; 90853

== ENCOUNTER 2021-06-13 13:26 | Outpatient (REF) | payer BC, MEDICAID, SELFPAY | END 2021-06-13 13:27 | disposition home or self-care (01) | LOC: HO.HMGCLDS 13:26 | PROVIDERS: Visit Provider Internal Medicine | DX: Z20.822 Contact with and (suspected) exposure to COVID-19 (principal) | CPT/HCPCS: C9803; U0003; U0005 ==

== ENCOUNTER 2022-12-29 22:47 | Inpatient (IN) | payer BC, MEDICAID, SELFPAY ==
[2022-12-29 22:56] VITALS: BP 123/75; PULSE 77; RESP 18; TEMP 36.6; O2SAT 100; BMI 22.8
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
--- NOTE | 2022-12-29 23:59 | PC.NURSE ---
Pt moved into room 12 due to concerns that pt is a flight risk per MD Messina. Per MD Messina, despite pt denying SI/HI, pt is bipolar and not taking his medications. Per MD Messina, pt must continue to have a 1:1 @ this time.
[2022-12-30 00:06] LABS: MANUAL DIFF FLAG NO
[2022-12-30 00:07] LABS: Basophils Absolute Auto 0.1 X10*3/uL (0.0-0.2); Basophils Percent Auto 0.7 % (0-2); Eosinophils Absolute Auto 0.3 X10*3/uL (0.0-0.4); Eosinophils Percent Auto 3.9 % (0-4); Hematocrit 44.5 % (42.0-52.0); Hemoglobin 14.9 g/dl (14.0-18.0); Imm Gran Abs Auto 0.01 X10*3/uL (0.00-0.03); Imm Gran Pct Auto 0.1 % (0.0-0.4); Lymphocytes Absolute Auto 2.6 X10*3/uL (1.2-4.9); Lymphocytes Percent Auto 30.3 % (20-40); Mean Corpuscular HGB Conc 33.5 g/dl (31.0-36.0); Mean Corpuscular Hemoglobin 29.3 pg (27.0-33.0); Mean Corpuscular Volume 87.4 fL (80.0-98.0); Mean Platelet Volume 11.6 fL (9.4-12.4); Monocytes Absolute Auto 0.7 X10*3/uL (0.1-1.2); Monocytes Percent Auto 8.3 % (2-11); Neutrophils Absolute Auto 4.8 x10*3/uL (2.0-8.3); Neutrophils Percent Auto 56.7 % (45-73); Platelet Count 203 X10*3/uL (160-400); Red Blood Count 5.09 X10*6/uL (4.60-5.80); Red Cell Distribution Width 11.9 % (11.0-16.0); White Blood Count 8.5 X10*3/uL (4.8-10.8)
[2022-12-30 00:10] LABS: Appearance Urine Clear; Color Urine Yellow; Glucose Urine UA Negative (Negative); Leukocyte Esterase Urine Negative (Negative); Nitrite Urine Negative (Negative); Urine Blood Negative (Negative); Urine Ketones Negative (Negative); Urine Protein Negative (Neg-Trace)
[2022-12-30 00:19] LABS: Amphetamine Screen Urine Not Detected (Not Detect); Barbiturates, Urine Not Detected (Not Detect); Benzodiazepines Screen Urine Not Detected (Not Detect); Cannabinoid Screen Urine Not Detected (Not Detect); Cocaine Screen Urine Not Detected (Not Detect); Fentanyl, urine Not Detected (Not Detect); Opiate Screen Urine Not Detected (Not Detect); Phencyclidine Screen Urine Not Detected (Not Detect)
[2022-12-30 00:26] LABS: COVID-19 Test Negative (Negative); IDNOW Serial# 08D9AD1C
[2022-12-30 00:31] LABS: Alanine Aminotransferase 12 U/L (0-40); Alkaline Phosphatase 71 U/L (39-117); Anion Gap 15 (12-20); Aspartate Amino Transferase 16 U/L (5-37); Bilirubin Total 0.4 mg/dL (0.0-1.0); Blood Urea Nitrogen 10 mg/dL (9-16); Calcium 10.5 mg/dL (8.4-10.2); Carbon Dioxide 29 mmol/L (22-29); Chloride 104 mmol/L (96-108); Ethanol < 10 mg/dL; Glucose Random 80 mg/dL (60-115); Potassium 4.1 mmol/L (3.3-5.1); Sodium 144 mmol/L (135-145); Total Protein 7.9 g/dL (6.5-8.0)
[2022-12-30 00:34] LABS: Creatinine Clr Calc Pharmacy 104.1; Estimated Glomerular Filt Rate > 60
[2022-12-30] MEDS: Melatonin 3 MG TABLET 6 MG PO (00:50)
--- NOTE | 2022-12-30 00:52 | PC.NURSE ---
Patient requested melatonin to help him go to sleep. This RN spoke with MD, and medicated as per LELIA
[2022-12-30 01:38] VITALS: BP 125/83; PULSE 67; RESP 18; O2SAT 98
[2022-12-30 06:00] VITALS: RESP 16
[2022-12-30 07:20] VITALS: BP 104/58; PULSE 76; RESP 18; O2SAT 99
--- NOTE | 2022-12-30 07:21 | PC.NURSE ---
Alert and oriented. Denies SI. VSS. Stes slept well last night. Denies any pain or discomfort. continues on 1:1 for elopment risk
--- NOTE | 2022-12-30 10:02 | PC.NURSE ---
Alert and oriented, remains calm and cooperative. Denies SI/HI. Ate well for breakfast, coloring in room at this time. Denies pain.
[2022-12-30 19:28] VITALS: BP 145/63; PULSE 84; RESP 16; TEMP 36.7; O2SAT 100
--- NOTE | 2022-12-30 19:36 | PC.NURSE ---
Pt arrived on unit at 19:07. Skin check completed upon arrival to unit. WNL - NO COMPLAINTS
[2022-12-30 21:10] VITALS: BMI 23.3
[2022-12-30] MEDS: traZODone HCL 50 MG TABLET PO (23:52)
[2022-12-30] MEDS: hydrOXYzine HCL 50 MG TABLET PO (23:52)
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
--- NOTE | 2022-12-31 02:35 | PC.NURSE ---
3 day notice was submitted during admission assessment. ''I want help but I don't want to be here for a long time''
[2022-12-31 08:59] LABS: Cholesterol 156 mg/dL; HDL Cholesterol 50 mg/dL; LDL Cholesterol Calculated 92 mg/dl; Triglycerides 72 mg/dL
[2022-12-31 09:15] LABS: Estimated Average Glucose 94 mg/dL; Hemoglobin A1c % 4.9 %
[2022-12-31] MEDS: Acetaminophen 325 MG TABLET 650 MG PO ×2 (09:54→16:03)
[2022-12-31] MEDS: hydrOXYzine HCL 50 MG TABLET PO (09:59)
[2022-12-31 10:16] VITALS: BP 129/76; PULSE 69; TEMP 36.6; O2SAT 99
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
[2022-12-31 18:00] VITALS: BP 124/63; PULSE 104; RESP 18; TEMP 36.4; O2SAT 100
[2022-12-31] MEDS: OLANZapine 5 MG TABLET PO (21:20)
[2022-12-31] MEDS: traZODone HCL 50 MG TABLET PO (21:20)
[2023-01-01 06:00] VITALS: BP 113/56; PULSE 73; RESP 18; O2SAT 99
--- NOTE | 2023-01-01 13:34 | P.PNPSI_ITS ---
Subjective Subjective Date of Service: 01/01/23 Reason For Visit: SI Interim History: pt sleeping late morning. feels the antipsychotic was helpful for him. allows perhaps the medication at bedtime was too much. agrees to DC trazodone and hold on plan to start prazosin. remains a bit disorganized but less verbose than yesterday. per staff, tangential and hyperverbal yesterday. c/o chest discomfort in the morning. Mental Status Exam Mental Status Exam Narrative: casually, appropriately dressed; earring left ear; Good eye contact, attentive. No Tics or Tremors. No abnormal involuntary movements. no PMA/PMR. speech incr in rate, nml amount. poorly articulated. nml loudness, decr latency. affect more flexible, normo-intense, non-labile. no SI/SIB/HI/AVH expressed. Thought process goal oriented, sometimes loose and disorganized. no delusions or paranoia expressed. No known cognitive or memory impairment. Insight/ Judgment fair.? Diagnostics Vital Signs (24Hr): Vital Signs - 24 hr 12/31/22 18:00 01/01/23 06:00 Temperature 97.6 F Pulse Rate 104 H 73 Respiratory Rate 18 18 Blood Pressure 124/63 113/56 L Pulse Oximetry 100 99 Oxygen Delivery Method Room Air Room Air BMI result Body Mass Index 23.3 Labs 12/29/22 23:59 12/29/22 23:59 Labs: Laboratory Results - last 48 hr 12/31/22 12/31/22 08:23 08:23 Estimat Average Glucose 94 Hemoglobin A1c % 4.9 Triglycerides 72 Cholesterol 156 LDL Cholesterol, Calc 92 HDL Cholesterol 50 Medications Medications Current Medications Acetaminophen (Acetaminophen 325 Mg Tablet) 650 mg PO Q6H PRN PRN Reason: Headache/Pain Mild Scale (1-3) Last Admin: 12/31/22 16:03 Dose: 650 mg Al Hydroxide/Mg Hydroxide (Magnesium Hydrox/Alum Hydrox 30 Ml Oral.Susp) 30 ml PO Q6H PRN PRN Reason: Heartburn/Nausea Magnesium Hydroxide (Milk Of Magnesia 30 Ml Oral.Susp) 30 ml PO DAILY PRN PRN Reason: Constipation Nicotine Polacrilex (Nicotine Polacrilex 2 Mg Gum) 4 mg BUCCAL Q2H PRN PRN Reason: Nicotine Cravings Olanzapine (Olanzapine 5 Mg Tablet) 5 mg PO BEDTIME [facility] Last Admin: 12/31/22 21:20 Dose: 5 mg Olanzapine (Olanzapine 2.5 Mg Tablet) 2.5 mg PO TID PRN PRN Reason: agitation/anxiety Allergies Allergies Allergy/AdvReac Type Severity Reaction Status Date / Time No Known Allergies Allergy Unverified 12/30/22 10:51 [No Known Allergies*] Assessment & Plan Assessment & Plan (1) Bipolar II disorder: Status: Acute Code(s): F31.81 - Bipolar II disorder (2) PTSD (post-traumatic stress disorder): Status: Acute Code(s): F43.10 - Post-traumatic stress disorder, unspecified Plan 12/31: start zyprexa 5 mg QHS tonight for sleep, hypomania. start prazosin 1 mg tomorrow night for nightmares and insomnia in PTSD. 01/01: a bit sedated late morning. DC trazodone, take only zyprexa 5 at HS. hold on prazosin for now. appears a bit less voluble today, less labile/irritab le. Reason for continued inpatient stay Substantial Risk for: inability to function and rapid decompensation Time Spent With Patient Time: Total time managing care of this patient today __25__ minutes.
[2023-01-01] MEDS: OLANZapine 5 MG TABLET PO (20:25)
[2023-01-01 20:35] VITALS: BP 142/71; PULSE 109; RESP 18; TEMP 37.1; O2SAT 100
[2023-01-02 07:00] VITALS: BMI 23.5
[2023-01-02 08:15] VITALS: BP 116/69; PULSE 91; RESP 18; TEMP 36.6; O2SAT 100
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
[2023-01-02 19:55] VITALS: BP 133/86; PULSE 97; RESP 16; TEMP 36.6; O2SAT 98
[2023-01-02] MEDS: OLANZapine 5 MG TABLET PO (21:19)
[2023-01-03] MEDS: Acetaminophen 325 MG TABLET 650 MG PO (00:35)
[2023-01-03] MEDS: OLANZapine 2.5 MG TABLET PO (00:36)
[2023-01-03 08:56] VITALS: BP 110/57; PULSE 84; RESP 18; TEMP 36.4; O2SAT 98
== END 2023-01-03 11:15 | disposition home or self-care (01) | DRG 753 ==
LOC: HO.ED 12-30 10:41 → HO.PADLT16 12-30 18:52
PROVIDERS: Admitting Provider Psychiatry & Neurology Psychiatry; Emergency Provider Emergency Medicine Emergency Medical Services; Visit Provider Psychiatry & Neurology Psychiatry
DX: F31.81 Bipolar II disorder (principal); R45.851 Suicidal ideations; F43.10 Post-traumatic stress disorder, unspecified; Z20.822 Contact with and (suspected) exposure to COVID-19; Z87.891 Personal history of nicotine dependence
CPT/HCPCS: 36415; 80053; 80061; 80307; 81003; 83036; 85025; 87635; 99285; S9485

== ENCOUNTER 2023-10-26 01:03 | Day surgery (SDC) | payer BC, MEDICAID, SELFPAY ==
[2023-10-26] VITALS (7 sets, daily range): BP systolic 103–120; BP diastolic 55–81; PULSE 60–83; RESP 16–25; TEMP 36.4–36.9; O2SAT 97–100; BMI 23.6
--- NOTE | ~2023-10-26 | XR_ITS ---
EXAMINATION: XR SOFT TISSUE NECK CLINICAL INDICATION: Concern for foreign body. COMPARISON: None available. TECHNIQUE: 2 views of the soft tissue neck were obtained. FINDINGS: Soft tissue films of the neck demonstrate a normal larynx, pharynx and upper trachea. No soft tissue swelling or opaque foreign body is demonstrated. XR/XR soft tissue neck IMPRESSION: Unremarkable examination.
--- NOTE | 2023-10-26 02:17 | ED_ITS ---
HPI - Skin/Abscess/Foreign Bdy General Chief complaint: Skin/Abscess/Foreign Body Stated complaint: Food stuck in throat Time Seen by Provider: 10/26/23 01:51 Source: patient Mode of arrival: ambulatory Limitations: no limitations History of Present Illness HPI narrative: Patient history of bipolar disorder not taking any medication lately otherwise healthy had chicken breast at around 22:00 and since then noticed piece of chicken stuck in his throat unable to drink any liquids or eat any solids able to swallow his saliva no history of similar complaint in the past Related Data Previous Rx's ?Medication ?Instructions ?Recorded olanzapine 2.5 mg tablet 2.5 mg PO DAILY PRN anxiety 30 01/02/23 days #30 tabs olanzapine 5 mg tablet 5 mg PO BEDTIME 30 days #30 tabs 01/02/23 Allergies Allergy/AdvReac Type Severity Reaction Status Date / Time No Known Allergies Allergy Verified 10/26/23 01:23 [No Known Allergies*] Review of Systems 2 Review of Systems: Yes all other systems are reviewed and are negative [facility] Past Medical History Medical History PTSD (post-traumatic stress disorder) No known health problems Social History Social History Household Members: Family Housing: House Do you presently have visiting nurse or other home services: No Alcohol intake: never Patient Tobacco Use Status: Former Tobacco user Tobacco use type: Smokeless Tobacco Smoked in Last 30 Days: No e-Cigarette/Vaping Use: Never Used Substance Use Type: Marijuana Advance Directives: No Advance Directives Information Provided: No service: No Sexual orientation: Straight/Heterosexual Physical Exam 2 Vital Signs: Vital Signs: Last Vital Signs Temp 98.1 F 10/26/23 06:11 Pulse 83 10/26/23 06:11 Resp 25 H 10/26/23 06:11 BP 116/56 L 10/26/23 06:11 Pulse Ox 98 10/26/23 06:11 O2 Del Method Nasal Cannula 10/26/23 06:11 O2 Flow Rate 2 10/26/23 06:11 BMI result Body Mass Index 23.6 Appearance: Alert. Oriented X3. No acute distress. Anxious Eyes: No pallor ENT: Pharynx normal. Oral Mucosa moist no stridor Neck: Normal inspection. Neck supple. CVS: Normal heart rate and rhythm. Pulses normal. Respiratory: No respiratory distress. Equal air entry bilateral, no wheezing/rales/rhonchi Abdomen: Soft and nontender. Bowel sounds are present, no mass palpable, no CVA tenderness Skin: Skin warm and dry. Normal skin color. Normal skin turgor. Extremities: No lower extremity edema. No calf tenderness Neuro: Oriented X 3. Medications Administered Discontinued Medications Generic Name Dose Route Start Last Admin Trade Name Freq PRN Reason Stop Dose Admin Al Hydroxide/Mg Hydroxide 15 ml 10/26/23 05:02 10/26/23 05:08 Magnesium Hydrox/Alum Hydrox 30 Ml Oral.Susp PO 10/26/23 05:03 15 ml ONCE ONE Administration Glucagon 1 mg 10/26/23 02:17 10/26/23 02:39 Glucagon Hcl 1 Mg Vial IVPUSH 10/26/23 02:18 1 mg ONCE ONE Administration Sodium Chloride 1,000 mls @ 999 mls/hr 10/26/23 05:56 10/26/23 07:18 Ns IV 10/26/23 06:56 Infused .Q1H1M ONE Infusion Lidocaine HCl 15 ml 10/26/23 03:43 10/26/23 04:14 Lidocaine Hcl Viscous 2 % 15 Ml Solution MUCOUS MEM 10/26/23 03:44 15 ml ONCE ONE Administration Lidocaine HCl 15 ml 10/26/23 05:02 10/26/23 05:08 Lidocaine Hcl Viscous 2 % 15 Ml Solution MUCOUS MEM 10/26/23 05:03 15 ml ONCE ONE Administration Medical Decision Making Medical Decision Making [facility] Narrative: Patient with foreign body impaction in upper esophagus x-ray negative patient unable to tolerate any p.o. liquids IV glucagon IV fluids and EZ gas was tried were unsuccessful case discussed with Dr. [place] landing support specialist will take patient to OR for endoscopy likely has eosinophilic esophagitis Differential Diagnosis Differential Diagnoses: The differential diagnosis associated with the presentation includes Esophagitis/anxiety/foreign body impaction Lab Data [facility] Lab Attestation statement: I reviewed the patient's lab results. 10/26/23 06:02 Labs: Lab Results 10/26/23 Range/Units 06:02 WBC 8.4 (4.8-10.8) X10*3/uL RBC 4.73 (4.60-5.80) X10*6/uL Hgb 14.0 (14.0-18.0) g/dl Hct 40.5 L (42.0-52.0) % MCV 85.6 (80.0-98.0) fL MCH 29.6 (27.0-33.0) pg MCHC 34.6 (31.0-36.0) g/dl RDW 11.9 (11.0-16.0) % Plt Count 178 (160-400) X10*3/uL MPV 10.5 (9.4-12.4) fL Immature Gran % (Auto) 0.2 (0.0-0.4) % Neut % (Auto) 62.3 (45-73) % Lymph % (Auto) 23.6 (20-40) % [place] % (Auto) 7.3 (2-11) % Eos % (Auto) 6.0 H (0-4) % Baso % (Auto) 0.6 (0-2) % Lymph # (Auto) 2.0 (1.2-4.9) X10*3/uL [place] # (Auto) 0.6 (0.1-1.2) X10*3/uL Eos # (Auto) 0.5 H (0.0-0.4) X10*3/uL Baso # (Auto) 0.1 (0.0-0.2) X10*3/uL Abs Immat Gran (auto) 0.02 (0.00-0.03) X10*3/uL Absolute Neuts (auto) 5.2 (2.0-8.3) x10*3/uL Absolute Nucleated RBC 0.000 (0.0-0.012) X10*3/uL Nucleated RBC % (auto) 0.0 (0.0-0.2) /100WBC Independent Interpretation I performed an independent interpretation of an: Plain X-Ray Radiology Impression Discussion of test interpretation with radiology: I have reviewed the radiologist's reading. Discharge Plan Discharge Clinical Impression: Foreign body in cervical esophagus Patient Disposition: Still a Patient Prescriptions: No Action olanzapine 2.5 mg tablet 2.5 mg PO DAILY PRN (Reason: anxiety) 30 Days Qty: 30 0RF olanzapine 5 mg tablet 5 mg PO BEDTIME 30 Days Qty: 30 1RF Print Language: Thai
[2023-10-26] MEDS: glucagon HCL 1 MG VIAL IVPUSH (02:39)
[2023-10-26] MEDS: Lidocaine HCl Viscous 2 % 15 ML SOLUTION MUCOUS MEM ×2 (04:14→05:08)
[2023-10-26] MEDS: Magnesium Hydrox/Alum Hydrox 30 ML ORAL.SUSP 15 ML PO (05:08)
[2023-10-26] MEDS: 0.9 % Sodium Chloride 1,000 ML 999 ML IV (06:00)
[2023-10-26 06:06] LABS: Basophils Absolute Auto 0.1 X10*3/uL (0.0-0.2); Basophils Percent Auto 0.6 % (0-2); Eosinophils Absolute Auto 0.5 X10*3/uL (0.0-0.4); Hematocrit 40.5 % (42.0-52.0); Imm Gran Abs Auto 0.02 X10*3/uL (0.00-0.03); Imm Gran Pct Auto 0.2 % (0.0-0.4); Lymphocytes Percent Auto 23.6 % (20-40); MANUAL DIFF FLAG NO; Mean Corpuscular HGB Conc 34.6 g/dl (31.0-36.0); Mean Corpuscular Hemoglobin 29.6 pg (27.0-33.0); Mean Corpuscular Volume 85.6 fL (80.0-98.0); Mean Platelet Volume 10.5 fL (9.4-12.4); Monocytes Absolute Auto 0.6 X10*3/uL (0.1-1.2); Monocytes Percent Auto 7.3 % (2-11); Neutrophils Absolute Auto 5.2 x10*3/uL (2.0-8.3); Neutrophils Percent Auto 62.3 % (45-73); Platelet Count 178 X10*3/uL (160-400); Red Blood Count 4.73 X10*6/uL (4.60-5.80); Red Cell Distribution Width 11.9 % (11.0-16.0); White Blood Count 8.4 X10*3/uL (4.8-10.8)
--- NOTE | 2023-10-26 08:46 | PC.NURSE ---
Report given to Dana SMITH in [facility].
--- NOTE | 2023-10-26 09:03 | HO.ANESPROP2 ---
HPI - Anesthesia Eval Consult details Narrative: esophageal bolus PMFSH Active Problems Active Problems: All Active Problems Foreign body in cervical esophagus (Acute) Bipolar II disorder (Acute) PTSD (post-traumatic stress disorder) (Acute) Cannabis abuse (Acute) Past Medical History Medical History PTSD (post-traumatic stress disorder) No known health problems Family History Family history of problems with anesthesia: No Surgical History History of Problems with Anesthesia: No Social History Social History Household Members: Family Housing: House Do you presently have visiting nurse or other home services: No Alcohol intake: never Patient Tobacco Use Status: Former Tobacco user Tobacco use type: Smokeless Tobacco Smoked in Last 30 Days: No e-Cigarette/Vaping Use: Never Used Substance Use Type: Marijuana Advance Directives: No Advance Directives Information Provided: No service: No Sexual orientation: Straight/Heterosexual Meds Allergies Allergy/AdvReac Type Severity Reaction Status Date / Time No Known Allergies Allergy Verified 10/26/23 01:23 [No Known Allergies*] Exam Height,Weight and Vital Signs: Height 5 ft 8 in Weight 70.307 kg Last Vital Signs Temp 97.9 F 10/26/23 08:38 Pulse 61 10/26/23 08:38 Resp 17 10/26/23 08:38 BP 118/55 L 10/26/23 08:38 Pulse Ox 99 10/26/23 08:38 O2 Del Method Room Air 10/26/23 08:38 O2 Flow Rate 2 10/26/23 06:11 Pertinent Lab Results Pertinent Lab Results: Laboratory Tests 10/26/23 06:02 WBC 8.4 RBC 4.73 Hgb 14.0 Hct 40.5 L MCV 85.6 MCH 29.6 MCHC 34.6 RDW 11.9 Plt Count 178 MPV 10.5 Immature Gran % (Auto) 0.2 Neut % (Auto) 62.3 Lymph % (Auto) 23.6 [place] % (Auto) 7.3 Eos % (Auto) 6.0 H Baso % (Auto) 0.6 Lymph # (Auto) 2.0 [place] # (Auto) 0.6 Eos # (Auto) 0.5 H Baso # (Auto) 0.1 Abs Immat Gran (auto) 0.02 Absolute Neuts (auto) 5.2 Absolute Nucleated RBC 0.000 Nucleated RBC % (auto) 0.0 Airway Mallampati Class: II TM Dist: >3cm Neck ROM: Full Heart: RRR Lungs: CTA Assessment and Plan Assessment Anesthesia Assessment: Anesthesia Plan Discussed and Chart Reviewed Final Anesthetic Review Family History of Problems with Anesthesia: No History of Problems with Anesthesia: No NPO: No ASA Class: II and Emergency Final Preanesthetic Review: No Changes in Pt Med Stat, Meds/Allgs Chart Reviewed, Consent Obtained/Reviewed and Anes Risks/Benef Reviewed Patient Risk: Low Procedure Risk: Low Anesthetic Plan Anesthetic Plan: MAC: Disposition: Standard PACU
--- NOTE | 2023-10-26 09:11 | P.CNGI_ITS ---
History of Present Illness Data of Consult Service Date: 10/26/23 Requesting physician: Thierry Alicea Primary Care Provider: Unknown Physician HPI Reason for consult: Food obstruction This is a 22-year-old gentleman with past medical history bipolar disorder and PTSD who presented to the emergency room last night for sensation of food stuck in his esophagus Reports he had chicken around 10 o'clock and since then has not been able to tolerate any p.o. In the emergency room, he had a trial of IV glucagon without any avail. Gastroenterology was therefore consulted for question of food obstruction and endoscopy. Reports has been having similar events at least once a month for the past 1 year, but has never needed to seek medical attention as is typically able to mitigate it at home which is drinking more fluids on top. No personal history of asthma, seasonal allergies or eczema. No family history of esophageal cancer. Review of Systems 2 Review of Systems: Yes all other systems are reviewed and are negative PMFSH Past Medical History Medical History PTSD (post-traumatic stress disorder) No known health problems Social History Social History Household Members: Family Housing: House Do you presently have visiting nurse or other home services: No Alcohol intake: never Patient Tobacco Use Status: Former Tobacco user Tobacco use type: Smokeless Tobacco Smoked in Last 30 Days: No e-Cigarette/Vaping Use: Never Used Substance Use Type: Marijuana Advance Directives: No Advance Directives Information Provided: No service: No Sexual orientation: Straight/Heterosexual Meds Allergies Allergy/AdvReac Type Severity Reaction Status Date / Time No Known Allergies Allergy Verified 10/26/23 01:23 [No Known Allergies*] Physical Exam 2 Vital Signs: Vital Signs: Last Vital Signs Temp 97.9 F 10/26/23 08:38 Pulse 61 10/26/23 08:38 Resp 17 10/26/23 08:38 BP 118/55 L 10/26/23 08:38 Pulse Ox 99 10/26/23 08:38 O2 Del Method Room Air 10/26/23 08:38 O2 Flow Rate 2 10/26/23 06:11 BMI result Body Mass Index 23.6 Young male No acute distress Nonicteric No overt respiratory distress Abdomen soft, nontender No lower extremity edema Results Labs 10/26/23 06:02 Labs: Short CBC 10/26/23 Range/Units 06:02 WBC 8.4 (4.8-10.8) X10*3/uL Hgb 14.0 (14.0-18.0) g/dl Hct 40.5 L (42.0-52.0) % Plt Count 178 (160-400) X10*3/uL Assessment and Plan (1) Esophageal obstruction due to food impaction: Status: Acute Plan Differentials include eosinophilic esophagitis versus ring/web versus stricture. Plan: -urgent EGD +/- dilation to be done this morning -please keep the patient NPO -further recommendations to follow in the procedure note Thank you for allowing me to participate in his care. Please do not hesitate to reach out for any questions or concerns. Procedures Date of Service Date of Service: 10/26/23
--- NOTE | 2023-10-26 09:15 | PC.NURSE ---
Pt transported to OR for endoscopy
--- NOTE | 2023-10-26 09:19 | P.OP_ITS ---
Operative Note Operative Note Date of Service: 10/26/23 Narrative: Procedure: Esophagogastroduodenoscopy Endoscopist: Ashley Celaya MD Indication: Food impaction Anesthesia Provider: Dr. Gracie Bowers Anesthesia Type: MAC ?? EGD Procedure:?? The procedure, indications, preparation and potential complications were revi ewed with the patient, who indicated understanding and gave written informed consent to proceed. A physical exam was performed. The endoscope was introduced through the mouth, and advanced to the second part of duodenum. The mucosa was carefully examined on slow withdrawal of the endoscope. The patient tolerated the procedure well. There were no immediate complications.? ? EGD Findings:? * Esophagus:? A large chunk of meat was noted to be impacted at 36 cm. Attempted to gently push this down with the scope, however this was not successful. We therefore passed a rescue net through the biopsy channel and pulled the bolus out through the mouth. The scope was then reintroduced and the near ulcerations were noted from GE junction at 42 cm up to 36 cm. Middle and lower esophagus forceps biopsies were obtained to rule out eosinophilic esophagitis. * Stomach:? Normal mucosa was noted in the stomach. Retroflexion was performed in the cardia * Duodenum:? Normal mucosa was noted in the whole of the examined duodenum. Cold forceps biopsies were taken from duodenal bulb and second portion of the duodenum to rule out celiac sprue. ? EGD Impressions:? * Food bolus impaction at 36 cm * Grade D esophagitis * Normal gastric mucosa * Normal duodenum ?? Recommendations:?? * Follow biopsy results. Our office will call or send a letter with results within 7-10 days. * Start PPI therapy. * Patient strictly educated to cut up and chew his food thoroughly. * Avoid NSAIDs. Above has been reviewed with the patient.
== END 2023-10-26 10:35 | disposition home or self-care (01) ==
LOC: HO.ED 09:50 → HO.SSS 09:51
PROVIDERS: Emergency Provider Internal Medicine; Visit Provider Internal Medicine
PROC: 0DJ08ZZ Inspection of Upper Intestinal Tract, Via Natural or Artificial Opening Endoscopic (ICD-10-PCS; CPT 43235; principal; 2023-10-26 09:00)
DX: T18.128A Food in esophagus causing other injury, initial encounter (principal); W44.F3XA Food entering into or through a natural orifice, initial encounter; K20.90 Esophagitis, unspecified without bleeding; F43.10 Post-traumatic stress disorder, unspecified; F31.81 Bipolar II disorder; Z79.899 Other long term (current) drug therapy; Z87.891 Personal history of nicotine dependence
CPT/HCPCS: 43247; 43239; 36415; 70360; 85025; 88305; 88313; 96360; 99285; J1610; J2704; J3010

== ENCOUNTER → 2023-10-26 01:50 | Outpatient (BNV) | payer BC, MEDICAID, SELFPAY | PROVIDERS: Emergency Provider Internal Medicine; Visit Provider Internal Medicine | DX: T18.128A Food in esophagus causing other injury, initial encounter (principal); W44.F3XA Food entering into or through a natural orifice, initial encounter | CPT/HCPCS: 43247; 99283 ==

== ENCOUNTER → 2023-11-07 10:15 | Outpatient (BNV) | payer BC, MEDICAID, SELFPAY | PROVIDERS: Visit Provider Psychiatry & Neurology Psychiatry | DX: F31.81 Bipolar II disorder (principal); F90.9 Attention-deficit hyperactivity disorder, unspecified type; F43.10 Post-traumatic stress disorder, unspecified; F12.10 Cannabis abuse, uncomplicated | CPT/HCPCS: 90792; 99213; 99499 ==

== ENCOUNTER 2023-11-17 09:45 | Outpatient (RCR) | payer BC, MEDICAID, SELFPAY ==
[2023-10-31 11:56] VITALS: BP 123/72; PULSE 52; TEMP 36.6
[2023-10-31 11:58] VITALS: BMI 23.9
--- NOTE | 2023-10-31 16:04 | PC.ADMIT ---
Patient is a 22 year old single male who has a dx of Bipolar II disorder who was referred to [facility] by his therapist. Patient having difficulty articulating why her is at [facility]. According to Integrative Assessment patient struggles with anger, frustration at life circumstances, life stresses, anxiety and depression. He was recently fired from his job and has a 5 year old daughter who lives with his ex-girlfriend the mother of his child. He reports his ex plays, boundary games with their daughter. Currently patient is alert and oriented x4. Calm and cooperative. He denied SI, HI, AH, or VH, no paranoid thoughts.He was given a copy of his safety plan if needed. He presents with anxious mood and affect. Patient reports he has had hypomanic episodes however does not believe he is experiencing this now. He stated he does not think he is depressed. Speech WNL. Reports he is sleeping well 8-10 hrs a night. He reports he has tried LSD 11 times and feels spiritual when taking this and feels this helps him. Patient uses marijuana daily. Educated patient about LSD and marijuana and the potential harms on the brain however patient feels it helps him. Patient has a history of medication non-compliance. Medications reconciled with patient and patient's pharmacy. He reports he last took Lamotrigine 3 days ago. He reports he has not taken Focalin xr for a month as it has been out of stock and or insurance issues. Reports taking Fluoxetine as prescribed and Omeprazole. Medication education provided.
--- NOTE | 2023-11-05 09:15 | HO.PHP ---
PHP staff member contacted Eduardo due to him not arriving to program. PHP staff member left a voicemail encouraging him to contact the program back. PHP staff member noted in the voicemail if she does not hear back from him in 15 minutes she will have to proceed with calling the emergency contact and if they don't answer then she would have to do a wellness check. PHP staff member is awaiting a call back from Eduardo.
--- NOTE | 2023-11-05 13:40 | HO.PHP ---
PHP staff member, Angella, reached out to Eduardo before making a call to his emergency contact. Eduardo informed Angella that he contacted an individual in the program and left a voicemail stating that he was unable to get a ride to program today due to not having PT1 transportation set up. Eduardo disclosed he is trying to find a ride for tomorrow since it will take time for him to receive PT1.
--- NOTE | 2023-11-06 15:22 | HO.PHP ---
Client's case has been opened and reviewed in treatment team.
--- NOTE | 2023-11-07 11:32 | PM.EVENT ---
Event Note Date of Service: 10/31/23 Event Note: Patient left program early on 10/31/23 before he was able to be seen by this provider. Time Spent With Patient Time: Total time managing care of this patient today ____ minutes.
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
--- NOTE | 2023-11-10 14:21 | HO.PHP ---
In the activity group (group 4), the activity on assertiveness practice and effective communication resonated with Eduardo. He requested to speak with someone individually. This t/w pulled Eduardo into group room C for confidentiality. He used this time to process issues he's currently dealing with around family relationships, boundaries, and finances. He presented with pressured speech and hypomanic. As the conversation progressed, Marley Arevalo LCSW joined the conversation offering support. Both staff talked with the patient around setting goals and clear boundaries that reflect his needs with the use of 'I' statements when communicating with others. This feedback appeared receptive to the patient. He stated that the individual time to process was helpful. He reassured staff that he would be present at program tomorrow.
--- NOTE | 2023-11-10 16:02 | HO.PHP ---
PHP staff member followed up with Eduardo after the third group due to him not staying for the group and coming in late. PHP staff member explored with Eduardo what was occurring. Eduardo appeared to be irritable and said he has a lot to do and he doesn't want to be here. PHP staff member relayed what Eduardo said in group three and informed him that this is a voluntary program. Eduardo became even more irritable. PHP staff member disclosed that she would like for Eduardo to be able to gather everything he can from the program and it seems like he is preoccupied and not engaging in groups. Eduardo disclosed that he is engaging and he answered the questions. I reiterated that he was late to group by almost 20 minutes and then left after he shared to eat. Eduardo said so I can't eat when I am hungry. PHP staff member informed him that we have a scheduled lunch break and snacks offered throughout the day that he could have. Eduardo was struggling to regulate. PHP staff member voiced that she would like to make sure he is safe and able to engage in the program. Eduardo disclosed no safety concerns and voiced that he will be able to engage in the last group. PHP staff member was receptive and informed him if he needs anything else throughout the day, to let her know. Eduardo was receptive.
--- NOTE | 2023-11-14 10:05 | HO.PHP ---
Eduardo is not scheduled for program today, November 14, [address]
--- NOTE | 2023-11-14 12:40 | P.EN_ITS ---
Event Note Date of Service: 11/16/23 Event Note: Spoke with pharmacy to confirm that they received Rx for Focalin XR 15 mg and that it is indeed in stock. They will fill script and will be ready for pick-up later today. 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 Time Spent With Patient Time: Total time managing care of this patient today __10__ minutes.
--- NOTE | 2023-11-14 13:10 | HO.PHP ---
Late Entry: [facility] staff member received a message for Eduardo's appointment for case management November 21, 2023 at 10 AM with Caio Newell at [address] [place] [address], [place], [place]
--- NOTE | 2023-11-17 13:22 | PC.NURSE ---
Eduardo participated in group discussion about social supports and connecting with the community. Discussion and information provided on local resources for mental health in the area. Eduardo shared with the group that he has family as his support and also discussed a peer that he relates to and likes to discuss ways to cope. He states he likes to do activities at his local library and play sports.
--- NOTE | 2023-11-17 14:18 | PC.NURSE ---
Pt seen by provider today , med changes made, DC paperwork reviewed and signed, pt to f/u with out patient provider.
--- NOTE | 2023-11-17 21:38 | P.PNPSP_ITS ---
Subjective Subjective Date of Service: 11/17/23 Reason For Visit: bipolar,OZZY,ADHD,PTSD Interim History: Patient seen for follow-up, anticipating discharge at the end of program today.? There was a delay in picking up the Focalin because of shortage, just picked it up prior to weekend. FIrst day or 2 is helpful for attention, but then less effective with each passing day. Has not been on 20 mg. He experiences mild elevated HR but otherwise denies any side effects. No notable mood instability or lability. I will increase dose by 5 mg, which he can take in the early afternoon after 15 mg XR in am. Alternatively he could try some days with taking 5 mg IR with 15 mg XR to see if this is more effective or tolerable. He is also agreeable with bumping up his Lamictal to provide more stabilization especially with increasing dose of stimulant. Guanfacine to help with elevated HR. Reports no acute issues or concerns. Medication compliant, medications well- tolerated. Denies any adverse effects.? Mood is stable.? Denies any hopelessness or SI. Denies thoughts of harming self or others at this time. Denies any aggressive ideation or HI. Denies any paranoia or AH or VH. Sleep, appetite, energy stable. Mental Status Exam Mental Status Exam Narrative: Alert, oriented, in no acute distress. Calm, cooperative, engaged. Eye contact maintained. Mood stable, affect variable, mood congruent. Speech normal. Thought process linear, coherent. Thought content related to stressors, denies any helplessness, hopelessness or SI.? No aggressive ideation or HI. No paranoia or delusional content elicited. No evidence of psychosis. Insight and judgment fair but adequate. Diagnostics Vital Signs (24Hr): BMI result Body Mass Index 23.9 Assessment & Plan Assessment & Plan (1) Bipolar II disorder: Status: Acute Code(s): F31.81 - Bipolar II disorder (2) Attention deficit hyperactivity disorder (ADHD): Status: Acute Code(s): F90.9 - Attention-deficit hyperactivity disorder, unspecified type (3) PTSD (post-traumatic stress disorder): Status: Acute Code(s): F43.10 - Post-traumatic stress disorder, unspecified (4) Cannabis abuse: Status: Acute Code(s): F12.10 - Cannabis abuse, uncomplicated Plan [facility]charge from [facility] increase Lamictal to 150 mg qd continue Focalin XR 15 mg qAM may add FOcalin 5 mg qd guanfacine ER 1 mg daily in AM continue other regular medications will defer further medication management to outpatient provider meets with OP provider on Saturday 11/18 Refills sent to pharmacy Certification I certify that partial hospital treatment is medically necessary due to the symptoms and problems resulting from the patient's mental illness and the failure to treat the patient at the partial hospital level of care would likely result in the patient requiring inpatient psychiatric care which could not be prevented at a less intensive level of care. Total time managing care of this patient today ____ minutes. Discharge Plan Discharge Attending provider: Asia Mcclure Medications: New dexmethylphenidate 15 mg capsule,ER biphasic 50-50 15 mg PO QAM Qty: 30 0RF Rx Instructions: Partial Fill upon patient request. guanfacine 1 mg tablet extended release 24 hr 1 mg PO DAILY Qty: 30 0RF Continued omeprazole 20 mg capsule,delayed release(DR/EC) 20 mg PO DAILY Qty: 60 0RF fluoxetine 20 mg capsule 20 mg PO DAILY dexmethylphenidate [Focalin] 5 mg tablet 5 mg PO DAILY Qty: 20 0RF Rx Instructions: Partial Fill upon patient request. Changed lamotrigine [Lamictal] 100 mg tablet 150 mg PO DAILY Qty: 45 0RF Discontinued dexmethylphenidate [Focalin XR] 15 mg capsule,ER biphasic 50-50 15 mg PO DAILY Rx Instructions: Out of Stock. Last filled 09/04/23. Stand Alone Forms: Patient Portal Discharge page Patient Education: ADHD in Adults (GEN), Bipolar Disorder (GEN), Post Traumatic Stress Disorder (GEN) Print Language: Chinese
== END 2023-11-17 23:59 | disposition home or self-care (01) ==
LOC: HO.PHPA 09:45
PROVIDERS: Visit Provider Psychiatry & Neurology Psychiatry
DX: F31.81 Bipolar II disorder (principal); F90.9 Attention-deficit hyperactivity disorder, unspecified type; F43.10 Post-traumatic stress disorder, unspecified; F12.10 Cannabis abuse, uncomplicated; Z79.899 Other long term (current) drug therapy
CPT/HCPCS: 90791; 90853

== ENCOUNTER 2024-03-13 12:36 | Inpatient (IN) | payer BC, MEDICAID, SELFPAY ==
[2024-03-13 12:37] VITALS: BP 157/103; PULSE 113; RESP 20; TEMP 37.1; O2SAT 100; BMI 21.1
--- NOTE | 2024-03-13 12:54 | ED_ITS ---
HPI - General Adult General Chief complaint: Psychiatric Symptoms Stated complaint: Crisis Time Seen by Provider: 03/13/24 12:51 Source: patient Mode of arrival: ambulatory Limitations: no limitations History of Present Illness ED Provider: Alvin SANDOVAL HPI narrative: 23-year-old male history of ADHD, erosive esophagitis, foreign body in cervical esophagitis, bipolar 2 disorder, PTSD, cannabis use disorder presenting to the emergency department with oly, anxiety, increasing life stressors over the past week or so. Patient recently became homeless and this is triggering his PTSD, he has not had success getting into a [facility] today he was trying to go to a [facility] however he felt like somebody was following him. With the feels hypomanic. He is having auditory hallucinations however no visual or tactile. Patient uses marijuana intermittently, smokes 5 cigarettes a day and drinks socially. Patient cuts/scratches to feel something however not in hopes of suicide. No HI. No medical complaints. Related Data Home Medications ?Medication ?Instructions ?Recorded ?Confirmed fluoxetine 20 mg capsule 40 mg PO DAILY 10/31/23 03/13/24 dexmethylphenidate 15 mg 20 mg PO QAM 03/13/24 03/13/24 capsule,extended release [id number] dexmethylphenidate 5 mg tablet 10 mg PO DAILY as directed 03/13/24 03/13/24 (Focalin) lamotrigine 100 mg tablet 150 mg PO BEDTIME 03/13/24 03/13/24 (Lamictal) Previous Rx's ?Medication ?Instructions ?Recorded guanfacine 1 mg tablet,extended 1 mg PO DAILY as directed #30 tabs 11/17/23 release 24 hr Allergies Allergy/AdvReac Type Severity Reaction Status Date / Time No Known Allergies Allergy Verified 03/13/24 12:43 [No Known Allergies*] Review of Systems 2 Review of Systems: Yes all other systems are reviewed and are negative PMFSH Past Medical History Attestation statement: The following information was validated with the patient. Source: old records reviewed and nursing notes reviewed Medical History PTSD (post-traumatic stress disorder) No known health problems Social History Social History Household Members: Family Housing: House Do you presently have visiting nurse or other home services: No Alcohol intake: never Patient Tobacco Use Status: Former Tobacco user Tobacco use type: Smokeless Tobacco Smoked in Last 30 Days: Yes e-Cigarette/Vaping Use: Never Used Use of substances other than those prescribed or required for medical reasons: Yes Substance Use Type: Marijuana Substance Use Frequency: Daily Last Used Substance: Just Prior to Admission Advance Directives: No Advance Directives Information Provided: No Do you have a plan to hurt others: No Plan service: No Sexual orientation: Straight/Heterosexual Physical Exam ED Vital Signs: Vital Signs - 24 hr 03/13/24 12:37 03/13/24 13:25 Temperature 98.7 F Pulse Rate 113 H 124 H Respiratory Rate 20 16 Blood Pressure 157/103 H 129/79 Pulse Oximetry 100 99 Oxygen Delivery Method Room Air Room Air BMI result Body Mass Index 21.1 vss Appearance: Alert.? Oriented X3.? No acute distress.? Head: Normocephalic, atraumatic, no step-offs or deformities Eyes: Pupils equal, round and reactive to light.? CVS: Normal heart rate and rhythm.? Pulses normal.? Respiratory: No respiratory distress.? Breath sounds normal.? Abdomen: Soft and nontender.? Skin: Skin warm and dry.? Normal skin color.? Normal skin turgor.? Extremities: No lower extremity edema.? No calf ttp. 5/5 strength to bilateral upper and lower extremities Back: No midline tenderness, no C-spine tenderness, full range of motion, no CVA tenderness bilaterally Neuro: Oriented X 3.? No motor deficit.? No sensory deficit. CN 2-12 intact Course Reevaluation(s) Reevaluation #1: CBC unremarkable. Chemistry with slightly anion gap, likely nonspecific. No other electrolyte abnormalities needing intervention. UA without infection. Urine toxicology positive for marijuana. Negative salicylates, acetaminophen, ethanol. This time patient to be placed into observation to allow more time to be evaluated by behavioral health team. At time observation started patient common cooperative no acute distress will continue to monitor Time: 15:17 Medications Administered Discontinued Medications Generic Name Dose Route Start Last Admin Trade Name Freq PRN Reason Stop Dose Admin Olanzapine 10 mg 03/13/24 13:28 03/13/24 13:47 Olanzapine 10 Mg Tablet PO 03/13/24 13:29 10 mg ONCE ONE Administration Medical Decision Making Medical Decision Making [facility] Narrative: 1328 23-year-old male presents with PTSD, feeling manic and having hallucinations Physical exam benign however patient noted to be hyperverbal, anxious appearing and manic History and physical exam concerning for PTSD versus bipolar versus anxiety. No signs of suicidal or homicidal ideation. Unlikely metabolic derangements. Will rule out polysubstance abuse Plan medical clearance evaluation by care team Differential Diagnosis Differential Diagnoses: The differential diagnosis associated with the presentation includes History and physical exam concerning for PTSD versus bipolar versus anxiety. No signs of suicidal or homicidal ideation. Unlikely metabolic derangements. Will rule out polysubstance abuse Admission/Observation Consideration of admission/observation: Escalation of care including admission/observation considered Lab Data [facility] Lab Attestation statement: I reviewed the patient's lab results. 03/13/24 14:21 03/13/24 14:21 Labs: Lab Results 03/13/24 03/13/24 Range/Units 14:21 14:25 WBC 7.8 (4.8-10.8) X10*3/uL RBC 4.79 (4.60-5.80) X10*6/uL Hgb 14.4 (14.0-18.0) g/dl Hct 42.3 (42.0-52.0) % MCV 88.3 (80.0-98.0) fL MCH 30.1 (27.0-33.0) pg MCHC 34.0 (31.0-36.0) g/dl RDW 12.2 (11.0-16.0) % Plt Count 224 D (160-400) X10*3/uL MPV 11.1 (9.4-12.4) fL Immature Gran % (Auto) 0.3 (0.0-0.4) % Neut % (Auto) 67.3 (45-73) % Lymph % (Auto) 18.3 L (20-40) % Park % (Auto) 7.9 (2-11) % Eos % (Auto) 5.4 H (0-4) % Baso % (Auto) 0.8 (0-2) % Lymph # (Auto) 1.4 (1.2-4.9) X10*3/uL Park # (Auto) 0.6 (0.1-1.2) X10*3/uL Eos # (Auto) 0.4 (0.0-0.4) X10*3/uL Baso # (Auto) 0.1 (0.0-0.2) X10*3/uL Abs Immat Gran (auto) 0.02 (0.00-0.03) X10*3/uL Absolute Neuts (auto) 5.2 (2.0-8.3) x10*3/uL Absolute Nucleated RBC 0.000 (0.0-0.012) X10*3/uL Nucleated RBC % (auto) 0.0 (0.0-0.2) /100WBC Sodium 140 (135-145) mmol/L Potassium 3.8 (3.3-5.1) mmol/L Chloride 103 (96-108) mmol/L Carbon Dioxide 20 L (22-29) mmol/L Anion Gap 21 H (12-20) BUN 13 (9-16) mg/dL Creatinine 0.90 (0.5-1.4) mg/dL Estim Creat Clear Calc 117.0 Estimated GFR > 60 Random Glucose 117 H (60-115) mg/dL Calcium 9.8 D (8.4-10.2) mg/dL Total Bilirubin 0.6 (0.0-1.0) mg/dL Direct Bilirubin 0.2 (0.0-0.5) mg/dL AST 35 (5-37) U/L ALT 21 (0-40) U/L Alkaline Phosphatase 61 (39-117) U/L Total Protein 7.5 (6.5-8.0) g/dL Albumin 4.9 (3.5-5.0) g/dL Urine Color Yellow Urine Appearance Clear Urine pH 8.0 (5.0-9.0) Ur Specific [place] 1.010 (1.005-1.025) Urine Protein Negative (Neg-Trace) mg/dL Urine Glucose (UA) Negative (Negative) mg/dL Urine Ketones Negative (Negative) mg/dL Urine Blood Negative (Negative) Urine Nitrite Negative (Negative) Ur Leukocyte Esterase Negative (Negative) Salicylates < 5.0 L (15-30) mg/dL Urine Opiates Screen Not Detected (Not Detect) Ur Buprenorphine Scrn Not Detected (Not Detect) ng/mL Ur Oxycodone Screen Not Detected (Not Detect) ng/mL Urine Methadone Screen Not Detected (Not Detect) ng/mL Urine Fentanyl Screen Not Detected (Not Detect) Acetaminophen < 3 (<30) mcg/mL Ur Barbiturates Screen Not Detected (Not Detect) Ur Phencyclidine Scrn Not Detected (Not Detect) Ur Amphetamines Screen Not Detected (Not Detect) U Benzodiazepines Scrn Not Detected (Not Detect) Urine Cocaine Screen Not Detected (Not Detect) U Marijuana (THC) Screen POSITIVE H (Not Detect) Ethyl Alcohol < 10 mg/dL Discharge Plan Discharge Clinical Impression: Bipolar II disorder, PTSD (post-traumatic stress disorder) Prescriptions: No Action fluoxetine 20 mg capsule 40 mg PO DAILY guanfacine 1 mg tablet extended release 24 hr 1 mg PO DAILY Qty: 30 0RF dexmethylphenidate [Focalin] 5 mg tablet 10 mg PO DAILY Rx Instructions: Partial Fill upon patient request. lamotrigine [Lamictal] 100 mg tablet 150 mg PO BEDTIME dexmethylphenidate 15 mg capsule,ER biphasic 50-50 20 mg PO QAM Rx Instructions: Partial Fill upon patient request. Interventions: [place]-Suicide Risk Severity Scale Last Done: 03/13/24 13:28 Print Language: Finnish
[2024-03-13 13:25] VITALS: BP 129/79; PULSE 124; RESP 16; O2SAT 99
[2024-03-13] MEDS: OLANZapine 10 MG TABLET PO (13:47)
--- NOTE | 2024-03-13 14:16 | PC.NURSE ---
Patient presents to the ED today due to increasing manic behavior secondary to a PTSD trigger. Pt reports he was recently kicked out of his step mother's house and has been homeless since. Yesterday around 5pm, he noticed someone following him and this triggered PTSD thoughts. Since that happened, he has noticied that his behavior has become manic and he has racing thoughts. he also endorses auditory hallucinations. Pt denies SI/HI. Pt is calm and cooperative, tangential, pressured speech noted. Pt offers no complaints at this time, other than a 4/10 headache, MARIUM padgett texted for Ibuprofen, pending answer at this time. Patient aware of plan of care for medical clearance and then CARE team eval
[2024-03-13 14:25] LABS: MANUAL DIFF FLAG NO
[2024-03-13 14:27] LABS: Basophils Absolute Auto 0.1 X10*3/uL (0.0-0.2); Basophils Percent Auto 0.8 % (0-2); Eosinophils Absolute Auto 0.4 X10*3/uL (0.0-0.4); Eosinophils Percent Auto 5.4 % (0-4); Hematocrit 42.3 % (42.0-52.0); Hemoglobin 14.4 g/dl (14.0-18.0); Imm Gran Abs Auto 0.02 X10*3/uL (0.00-0.03); Imm Gran Pct Auto 0.3 % (0.0-0.4); Lymphocytes Absolute Auto 1.4 X10*3/uL (1.2-4.9); Lymphocytes Percent Auto 18.3 % (20-40); Mean Corpuscular Hemoglobin 30.1 pg (27.0-33.0); Mean Corpuscular Volume 88.3 fL (80.0-98.0); Mean Platelet Volume 11.1 fL (9.4-12.4); Monocytes Absolute Auto 0.6 X10*3/uL (0.1-1.2); Monocytes Percent Auto 7.9 % (2-11); Neutrophils Absolute Auto 5.2 x10*3/uL (2.0-8.3); Neutrophils Percent Auto 67.3 % (45-73); Platelet Count 224 X10*3/uL (160-400); Red Blood Count 4.79 X10*6/uL (4.60-5.80); Red Cell Distribution Width 12.2 % (11.0-16.0); White Blood Count 7.8 X10*3/uL (4.8-10.8)
[2024-03-13 14:35] LABS: Appearance Urine Clear; Color Urine Yellow; Glucose Urine UA Negative (Negative); Leukocyte Esterase Urine Negative (Negative); Nitrite Urine Negative (Negative); Urine Blood Negative (Negative); Urine Ketones Negative (Negative); Urine Protein Negative (Neg-Trace)
[2024-03-13 14:44] LABS: Amphetamine Screen Urine Not Detected (Not Detect); Barbiturates, Urine Not Detected (Not Detect); Benzodiazepines Screen Urine Not Detected (Not Detect); Buprenorphine Scr Not Detected (Not Detect); Cannabinoid Screen Urine POSITIVE (Not Detect); Cocaine Screen Urine Not Detected (Not Detect); Fentanyl, urine Not Detected (Not Detect); Methadone Screen, Urine Not Detected (Not Detect); Opiate Screen Urine Not Detected (Not Detect); Oxycodone Screen Urine Not Detected (Not Detect); Phencyclidine Screen Urine Not Detected (Not Detect)
[2024-03-13 14:45] LABS: Alanine Aminotransferase 21 U/L (0-40); Albumin Level 4.9 g/dL (3.5-5.0); Alkaline Phosphatase 61 U/L (39-117); Anion Gap 21 (12-20); Aspartate Amino Transferase 35 U/L (5-37); Bilirubin Direct 0.2 mg/dL (0.0-0.5); Bilirubin Total 0.6 mg/dL (0.0-1.0); Blood Urea Nitrogen 13 mg/dL (9-16); Calcium 9.8 mg/dL (8.4-10.2); Carbon Dioxide 20 mmol/L (22-29); Chloride 103 mmol/L (96-108); Estimated Glomerular Filt Rate > 60; Ethanol < 10 mg/dL; Glucose Random 117 mg/dL (60-115); Potassium 3.8 mmol/L (3.3-5.1); Sodium 140 mmol/L (135-145); Total Protein 7.5 g/dL (6.5-8.0)
[2024-03-13 15:00] LABS: Acetaminophen LAB < 3 mcg/mL (<30); Salicylate < 5.0 mg/dL (15-30)
[2024-03-13 18:59] VITALS: BP 118/59; PULSE 75; RESP 16; TEMP 36.8; O2SAT 99
--- NOTE | 2024-03-13 21:01 | MHC.CARE ---
Not clinically appropriate for evaluation at 2000.
[2024-03-13] MEDS: lamoTRIgine 100 MG TABLET 150 MG PO (22:08)
--- NOTE | 2024-03-14 06:07 | PC.NURSE ---
Patient slept through the night, no distress observed/reported, no behavior and safety concerns at this time, meds and meals compliant, care team attempted to approach patient but couldn't due to sedation, care team will assess the patient in the morning, VSS, will continue to monitor
[2024-03-14 06:24] VITALS: BP 94/55; PULSE 57; RESP 16; TEMP 36.4; O2SAT 98
--- NOTE | 2024-03-14 07:04 | PC.NURSE ---
Assumed care of patient at 0645, patient appears to be sleeping, respirations aeven and unlabored, no apparent distress noted. Continue plan of care for CARE team eval this am
[2024-03-14] MEDS: FLUoxetine HCl 20 MG CAPSULE 40 MG PO (08:18)
[2024-03-14] MEDS: guanFACINE HCl ER 1 MG TAB.ER.24H PO (08:18)
[2024-03-14] MEDS: Nicotine Polacrilex 2 MG GUM BUCCAL (10:32)
--- NOTE | 2024-03-14 10:33 | MHC.CARE ---
Patient evaluated by the CARE Team, disposition determined to be inpatient psychiatric treatment. ED provider, Dr. Omalley updated
[2024-03-14 16:20] VITALS: RESP 14
--- NOTE | 2024-03-14 19:18 | PC.NURSE ---
Addendum entered by Rose Mary Graham 03/14/24 19:31: at rest, patient came out requesting snacks. patient appears in no distress. Original Note: patient appears to remain asleep at present, respirations are even and unlabored patient appears in no distress.
[2024-03-14 19:22] VITALS: BP 127/58; PULSE 83; RESP 20; TEMP 36.6; O2SAT 100
[2024-03-14] MEDS: lamoTRIgine 100 MG TABLET 150 MG PO (19:47)
[2024-03-14] MEDS: Melatonin 3 MG TABLET 6 MG PO (22:24)
[2024-03-15] MEDS: guanFACINE HCl ER 1 MG TAB.ER.24H PO (10:08)
[2024-03-15] MEDS: FLUoxetine HCl 20 MG CAPSULE 40 MG PO (10:08)
[2024-03-15] MEDS: Nicotine Polacrilex 2 MG GUM BUCCAL ×2 (10:57→18:17)
[2024-03-15 11:11] VITALS: BP 141/60; PULSE 106; RESP 14; TEMP 36.8; O2SAT 100
[2024-03-15] MEDS: LORazepam 1 MG TABLET PO (11:53)
--- NOTE | 2024-03-15 11:55 | PC.NURSE ---
ASSUMED CARE OF PT AT 1100, PT BECAME VERY ANXIOUS AND TRIGGERED BY ANOTHER PT'S DYSREGULATED BEHAVIOUR. HE WAS REQUESTING ZYPREXA, THOUGH AMENABLE TO ATIVAN. ATIVAN ADMINISTERED PER SEP.
[2024-03-15 13:26] VITALS: BP 129/78; PULSE 78; RESP 16; TEMP 36.4; O2SAT 100
[2024-03-15 14:39] VITALS: BMI 21.4
[2024-03-15 16:10] VITALS: BP 131/70; PULSE 115; RESP 16; TEMP 36.4; O2SAT 100
--- NOTE | 2024-03-15 18:32 | PC.ADMIT ---
Pt arrived to the unit at 1320 via wheelchair and has an accepted CV. Vitals obtained, admission paperwork and assessments completed, including ROIs. Pt oriented to the unit and placed on 15min checks for safety. Eduardo is a 23yo, homeless male that self presented to the ED for self described hypomania and PTSD symptoms. Pt has PMH of PTSD, Bipolar II and ADHD. Pt has previous admission @ [facility] in 2020 and 2022 and completed PHP 10/2023. Recent stressors include homelessness, poor sleep due to paranoia and legal issues. Pt reports his step-mother and father are selling their house and instead of evicting me they got a restraing order so it doesn't mess with my credit . Since then he has resided at homeless shelters where his sleep has been poor. He recently thought a suspicious person was following him and he reports this triggered his PTSD and has been on a downward spiral . He states he heard a baby cry, but i know there was no baby and also reports sometimes seeing things I know are not there . His tox screen was positive for marijuana which he smokes every now and then . Pt states is anxiety waxes and wanes. Sometimes its good, sometimes its not . He denies current Si/HI/AVH. Pt is goal oriented and agreeable to treatment. His tox screen was positive for marijuana only which he smokes every now and then . Smking cessatio consult placed and NRT is ordered.
[2024-03-15] MEDS: lamoTRIgine 100 MG TABLET 150 MG PO (20:14)
[2024-03-15 20:50] VITALS: BP 131/70; PULSE 115; RESP 18; TEMP 36.4; O2SAT 100
[2024-03-15] MEDS: traZODone HCL 50 MG TABLET PO ×2 (22:39→23:29)
[2024-03-16 08:00] VITALS: BP 111/54; PULSE 96; RESP 16; TEMP 36.5; O2SAT 100
[2024-03-16 08:27] LABS: Cholesterol 129 mg/dL (<200); Estimated Average Glucose 100 mg/dL; HDL Cholesterol 46 mg/dL (>40); Hemoglobin A1c % 5.1 % (<6.0); LDL Cholesterol Calculated 57 mg/dL (<100); Triglycerides 133 mg/dL (<150)
[2024-03-16] MEDS: guanFACINE HCl ER 1 MG TAB.ER.24H PO (08:39)
[2024-03-16] MEDS: hydrOXYzine HCL 25 MG TABLET PO (08:39)
[2024-03-16 08:42] LABS: TSH reflex Free T4 1.85 uIU/mL (0.32-4.0)
[2024-03-16] MEDS: Nicotine 21 MG PATCH.TD24 TRANSDERMA (08:50)
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
--- NOTE | 2024-03-16 10:09 | PC.NURSE ---
Eduardo signed a three day notice. Up Monday 03/19.
[2024-03-16] MEDS: Acetaminophen 325 MG TABLET 650 MG PO (11:58)
[2024-03-16] MEDS: risperiDONE 0.5 MG TABLET PO ×2 (11:59→21:13)
[2024-03-16] MEDS: Nicotine Polacrilex 2 MG GUM 4 MG BUCCAL ×4 (12:00→19:33)
[2024-03-16] MEDS: Lactase TABLET 1 TAB PO ×3 (12:56→17:56)
[2024-03-16 21:05] VITALS: BP 121/59; PULSE 92; RESP 18; TEMP 36.3; O2SAT 99
[2024-03-16] MEDS: lamoTRIgine 100 MG TABLET 150 MG PO (21:13)
[2024-03-16] MEDS: Melatonin 3 MG TABLET 9 MG PO (21:15)
[2024-03-16] MEDS: traZODone HCL 50 MG TABLET PO (22:21)
[2024-03-17 08:00] VITALS: BP 92/54; PULSE 72; RESP 18; TEMP 36.7; O2SAT 99
[2024-03-17] MEDS: guanFACINE HCl ER 1 MG TAB.ER.24H PO (08:31)
[2024-03-17] MEDS: Lactase TABLET 1 TAB PO ×3 (08:31→17:46)
[2024-03-17] MEDS: FLUoxetine HCl 20 MG CAPSULE 40 MG PO (08:31)
[2024-03-17] MEDS: Nicotine Polacrilex 2 MG GUM 4 MG BUCCAL ×2 (16:39→20:24)
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
[2024-03-17 20:00] VITALS: BP 137/67; PULSE 124; RESP 16; TEMP 36.7; O2SAT 99
[2024-03-17] MEDS: hydrOXYzine HCL 25 MG TABLET PO (20:27)
[2024-03-17] MEDS: lamoTRIgine 100 MG TABLET 150 MG PO (23:23)
[2024-03-17] MEDS: risperiDONE 0.5 MG TABLET PO (23:23)
[2024-03-17] MEDS: Melatonin 3 MG TABLET 9 MG PO (23:25)
[2024-03-18 08:12] VITALS: BP 112/53; PULSE 69; RESP 16; TEMP 36.6; O2SAT 99
[2024-03-18] MEDS: FLUoxetine HCl 20 MG CAPSULE 40 MG PO (09:42)
[2024-03-18] MEDS: guanFACINE HCl ER 1 MG TAB.ER.24H PO (09:42)
[2024-03-18] MEDS: Lactase TABLET 1 TAB PO ×2 (09:42→18:01)
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
[2024-03-18 11:31] VITALS: BP 112/60
[2024-03-18] MEDS: cloNIDine HCL 0.1 MG TABLET PO ×3 (11:31→22:47)
[2024-03-18 11:53] LABS: Lamotrigine Lamictal 3.2 mcg/mL (2.5-15.0)
[2024-03-18] MEDS: Nicotine Polacrilex 2 MG GUM 4 MG BUCCAL (16:27)
[2024-03-18 18:04] VITALS: BMI 21.7
[2024-03-18 20:00] VITALS: BP 134/72; PULSE 112; RESP 17; TEMP 36.7; O2SAT 100
[2024-03-18] MEDS: lamoTRIgine 100 MG TABLET 150 MG PO (21:01)
[2024-03-18] MEDS: risperiDONE 1 MG TABLET PO (21:04)
[2024-03-18 22:47] VITALS: BP 115/64
[2024-03-18] MEDS: Melatonin 3 MG TABLET 9 MG PO (22:47)
[2024-03-18] MEDS: Nicotine Polacrilex Lozenge 4 MG LOZENGE BUCCAL (22:48)
[2024-03-19 08:00] VITALS: BP 98/47; PULSE 80; RESP 16; TEMP 36.3; O2SAT 100
[2024-03-19] MEDS: Lactase TABLET 1 TAB PO ×3 (08:57→18:17)
[2024-03-19] MEDS: guanFACINE HCl ER 1 MG TAB.ER.24H PO (08:57)
[2024-03-19] MEDS: FLUoxetine HCl 20 MG CAPSULE 40 MG PO (08:57)
[2024-03-19 09:40] VITALS: BP 141/81
[2024-03-19] MEDS: Nicotine Polacrilex Lozenge 4 MG LOZENGE BUCCAL ×3 (09:40→20:02)
[2024-03-19] MEDS: cloNIDine HCL 0.1 MG TABLET PO ×2 (09:40→15:48)
--- NOTE | 2024-03-19 13:41 | P.PNPSI_ITS ---
Subjective Subjective Date of Service: 03/19/24 Reason For Visit: psychosis Interim History: Met with patient; discussed with team Patient still somewhat hypomanic though more calm and more control. Agrees to increase Risperdal to 2 mg q.h.s. and understands that remote mortgage underwriter will hold Focalin during the day. Patient says he has decided he wants to discharge. He talk to his siblings on the phone and since they are under 18 they can not visit him. He said 1 of his sisters was crying and missing him so he insists on discharging as soon as possible to go see her. He agrees to this Friday to see if increased Risperdal is helpful. Mental Status Exam Mental Status Exam Narrative: Pt is alert and oriented; behavior is somewhat hypomanic though still cooperative, friendly and in behavioral control; patient is not in distress; dressed in casual attire with unkempt hair; mood is described as good and affect congruent; eye contact appropriate; Speech is [id number] pressured; normal volume and prosody; some mild psychomotor agitation present; thought process is overall organized and goal directed, but increasingly circumstantial; Thought content is on tx, dealing with PTSD symptoms; some recent paranoid, delusional thinking; denies any SI/HI. Denies AVH; Patients insight and judgment impaired but improved and adequate. Diagnostics Vital Signs (24Hr): Vital Signs - 24 hr 03/18/24 20:00 03/18/24 22:47 03/19/24 08:00 Temperature 98.1 F 97.3 F Pulse Rate 112 H 80 Respiratory Rate 17 16 Blood Pressure 134/72 115/64 98/47 L Pulse Oximetry 100 100 Oxygen Delivery Method Room Air Room Air 03/19/24 09:40 Temperature Pulse Rate Respiratory Rate Blood Pressure 141/81 H Pulse Oximetry Oxygen Delivery Method BMI result Body Mass Index 21.7 Labs 03/13/24 14:21 03/13/24 14:21 Labs: Laboratory Results - last 48 hr 03/13/24 14:21 Lamotrigine 3.2 Medications Medications Current Medications Acetaminophen (Acetaminophen 325 Mg Tablet) 650 mg PO Q6H PRN PRN Reason: Headache/Pain Mild Scale (1-3) Last Admin: 03/16/24 11:58 Dose: 650 mg Al Hydroxide/Mg Hydroxide (Magnesium Hydrox/Alum Hydrox 30 Ml Oral.Susp) 30 ml PO Q6H PRN PRN Reason: Heartburn/Nausea Clonidine HCl (Clonidine Hcl 0.1 Mg Tablet) 0.1 mg PO Q4H PRN; Protocol PRN Reason: anxiety/insomnia Last Admin: 03/19/24 09:40 Dose: 0.1 mg Fluoxetine HCl (Fluoxetine Hcl 20 Mg Capsule) 40 mg PO DAILY [facility] Last Admin: 03/19/24 08:57 Dose: 40 mg Guanfacine HCl (Guanfacine Hcl Er 1 Mg Tab.Er.24h) 1 mg PO DAILY [facility] Last Admin: 03/19/24 08:57 Dose: 1 mg Lactase (Lactase Tablet) 1 tab PO TIDWM [facility] Last Admin: 03/19/24 12:13 Dose: 1 tab Lamotrigine (Lamotrigine 100 Mg Tablet) 150 mg PO BEDTIME [facility] Last Admin: 03/18/24 21:01 Dose: 150 mg Magnesium Hydroxide (Milk Of Magnesia 30 Ml Oral.Susp) 30 ml PO DAILY PRN PRN Reason: Constipation Melatonin (Melatonin 3 Mg Tablet) 9 mg PO BEDTIME PRN PRN Reason: for insomnia Last Admin: 03/18/24 22:47 Dose: 9 mg Nicotine (Nicotine 21 Mg Patch.Td24) 21 mg TRANSDERMA DAILY PRN PRN Reason: smoking cessation Last Admin: 03/16/24 08:50 Dose: 21 mg Nicotine Polacrilex (Nicotine Polacrilex Lozenge 4 Mg Lozenge) 4 mg BUCCAL Q2H PRN PRN Reason: Nicotine Cravings Last Admin: 03/19/24 11:49 Dose: 4 mg Pt Own ( Dexmethylphenidate Er 20 Mg Capsule) 1 each PO DAILY [facility] Last Admin: 03/19/24 08:58 Dose: 1 each Non-Formulary Medication (Patient Own Medication) 1 each PO DAILY@1300 [facility] Last Admin: 03/19/24 13:19 Dose: 1 each Olanzapine (Olanzapine 5 Mg Tablet) 5 mg PO TID PRN PRN Reason: agitation/hypomania Risperidone (Risperidone 1 Mg Tablet) 1 mg PO BEDTIME [facility] Last Admin: 03/18/24 21:04 Dose: 1 mg Trazodone HCl (Trazodone Hcl 50 Mg Tablet) 50 mg PO BEDTIME MRX1 PRN PRN Reason: Insomnia Last Admin: 03/16/24 22:21 Dose: 50 mg Allergies Allergies Allergy/AdvReac Type Severity Reaction Status Date / Time No Known Allergies Allergy Verified 03/13/24 12:43 [No Known Allergies*] Assessment & Plan Assessment & Plan (1) Bipolar II disorder: Status: Acute Code(s): F31.81 - Bipolar II disorder (2) PTSD (post-traumatic stress disorder): Status: Acute Code(s): F43.10 - Post-traumatic stress disorder, unspecified (3) Attention deficit hyperactivity disorder (ADHD): Status: Acute Code(s): F90.9 - Attention-deficit hyperactivity disorder, unspecified type Plan HPI: Patient is a 23-year-old male with history of bipolar type 2, PTSD, ADHD who presents for worsening PTSD symptoms AH in the face of recent homelessness and feeling threatened by patrons at homeless senior living. Patient reports that he takes his Lamictal, Prozac and Focalin regularly. His grandparents are selling the house and got a restraining order on him. Patient denies making any threats or being physical towards them at all but says that he will get triggered by them and sometimes yell loudly at them. Because of this he found himself homeless and went to a senior living; there was a large, menacing male individual who said He's my target.. And followed patient down the street as patient sought to get away from this person. Patient felt his PTSD significant triggered though he did not want to discuss details. Patient reports this past week he also heard a baby crying in the house; he knows rationally there is no baby there at all and thinks that maybe there was a [place] in the house that his mind changed into the sound but the sound seem so real he went to look for the baby. He reports sometimes he will hears parents talking and think they are talking about him when they are not. Patient reports that these AH and paranoid thinking seem to be episodic only and that he has been in a hypomanic state for the past week, which he describes as talking in a faster pace and more irritable; difficult to discern sleep since he has been homeless. Patient denies any SI or HI; denies any drug or alcohol abuse other than cannabis. Wants help with medication management. Formulation/clinical reasoning: Patient may have bipolar type 2 and was having a mild hypomanic episode, exacerbated by PTSD (and ADHD). Patient does not present as manic. He reports that AH and paranoid thoughts are episodic; says he is not sure if they are ever present outside of such episodes. For now will continue with bipolar type 2 diagnosis; rule out schizoaffective disorder. Hospital course 03/18 Patient presents as somewhat hypomanic. He has some pressured speech and although he is aware of it tries to limit himself, the pressured speech returns. He agrees that this could be hypomania though still thinks that his PTSD was aggravated recently which is part of the cause; did not want to discuss too much about what triggered his PTSD other than to say was talking to a girl on the phone. He agreed to increase Risperdal qhs. Reports not sleep that much last night because he was staying up talking to a peer. Patient really did not want remote mortgage underwriter to stop Focalin; remote mortgage underwriter agreed to allow it for another day but explained if patient's oly persist or increased will definitely have to hold it 03/19 patient remains mildly hypomanic; agrees to increase Risperdal to 2 mg q.h.s. and understands that Focalin will be held. Patient reports overall feeling better and wants to discharge. He is not in imminent risk for harm to self or others and discharge will be granted. He is going to remain on the unit for a couple days so see if increased risperdal will help. Plan: 3 day notice Q 15 minute checks On admission, Lamictal increased to 150mg (up from 100) Increase to Risperdal 2 mg q.h.s. Continue Clonidine 0.1 q4h anxiety/insomnia Added Hydroxyzine for anxiety Continue Fluoxetine 40mg daily; will start tomorrow if remains stable Holding Focalin extended-release and then immediate release in the afternoon Patient educated on: diagnosis and medication risk/benefits Informed Consent: understands Reason for continued inpatient stay Substantial Risk for: stable for discharge Time Spent With Patient Time: Total time managing care of this patient today ____ minutes.
[2024-03-19 15:44] VITALS: BP 126/74; PULSE 118; RESP 18; TEMP 37.1; O2SAT 100
[2024-03-19] MEDS: Acetaminophen 325 MG TABLET 650 MG PO (15:48)
[2024-03-19 20:00] VITALS: BP 138/62; PULSE 118; TEMP 36.7; O2SAT 100
[2024-03-19] MEDS: lamoTRIgine 100 MG TABLET 150 MG PO (22:23)
[2024-03-19] MEDS: Melatonin 3 MG TABLET 9 MG PO (22:25)
[2024-03-19] MEDS: risperiDONE 2 MG TABLET PO (22:25)
--- NOTE | 2024-03-20 08:49 | HO.PSYCHPN ---
Subjective Subjective Date of Service: 03/20/24 Reason For Visit: psychosis Interim History: Reports a.m. drowsiness. Asks to decrease Risperdal and restart stimulant. Discussed. Will leave both as they are. Pt needing a chance to accomodate to Risperdal. Stimulant precipitated sx of oly per Dr. Garvey so we will leave it off currently. Preparing for discharge 03/21. Feels safe, prepared to leave. Denies current concerns. Medication Compliance: Yes Side effects from medications: Yes (as noted) Attending Groups: Intermittent Review of Systems Acute medical concerns: No Medical Review of Systems: unchanged Review of Systems Review of Systems Yes all other systems are reviewed and are negative Mental Status Exam Mental Status Exam Patient Appearance: Appropriate Patient Orientation: Person, Place, Time and Situation Level of Consciousness: Alert Patient Behavior: Talkative and Good Eye Contact Mood Description: Appropriate Affect Description: Appropriate Patient Cognition Impaired: No Ability to Follow Directions: Good Speech Pattern: Spontaneous Speech Memory Description: Intact Thought Content: positive for Intact Judgement: Good Diagnostics Vital Signs (24Hr): Vital Signs - 24 hr 03/19/24 09:40 03/19/24 15:44 03/19/24 20:00 Temperature 98.7 F 98.1 F Pulse Rate 118 H 118 H Respiratory Rate 18 Blood Pressure 141/81 H 126/74 138/62 Pulse Oximetry 100 100 Oxygen Delivery Method Room Air Room Air BMI result Body Mass Index 21.7 Labs 03/13/24 14:21 03/13/24 14:21 Labs: Laboratory Results - last 48 hr 03/13/24 14:21 Lamotrigine 3.2 Medications Medications Current Medications Acetaminophen (Acetaminophen 325 Mg Tablet) 650 mg PO Q6H PRN PRN Reason: Headache/Pain Mild Scale (1-3) Last Admin: 03/19/24 15:48 Dose: 650 mg Al Hydroxide/Mg Hydroxide (Magnesium Hydrox/Alum Hydrox 30 Ml Oral.Susp) 30 ml PO Q6H PRN PRN Reason: Heartburn/Nausea Clonidine HCl (Clonidine Hcl 0.1 Mg Tablet) 0.1 mg PO Q4H PRN; Protocol PRN Reason: anxiety/insomnia Last Admin: 03/19/24 15:48 Dose: 0.1 mg Fluoxetine HCl (Fluoxetine Hcl 20 Mg Capsule) 40 mg PO DAILY [facility] Last Admin: 03/19/24 08:57 Dose: 40 mg Guanfacine HCl (Guanfacine Hcl Er 1 Mg Tab.Er.24h) 1 mg PO DAILY [facility] Last Admin: 03/19/24 08:57 Dose: 1 mg Lactase (Lactase Tablet) 1 tab PO TIDWM [facility] Last Admin: 03/19/24 18:17 Dose: 1 tab Lamotrigine (Lamotrigine 100 Mg Tablet) 150 mg PO BEDTIME [facility] Last Admin: 03/19/24 22:23 Dose: 150 mg Magnesium Hydroxide (Milk Of Magnesia 30 Ml Oral.Susp) 30 ml PO DAILY PRN PRN Reason: Constipation Melatonin (Melatonin 3 Mg Tablet) 9 mg PO BEDTIME PRN PRN Reason: for insomnia Last Admin: 03/19/24 22:25 Dose: 9 mg Nicotine (Nicotine 21 Mg Patch.Td24) 21 mg TRANSDERMA DAILY PRN PRN Reason: smoking cessation Last Admin: 03/16/24 08:50 Dose: 21 mg Nicotine Polacrilex (Nicotine Polacrilex Lozenge 4 Mg Lozenge) 4 mg BUCCAL Q2H PRN PRN Reason: Nicotine Cravings Last Admin: 03/19/24 20:02 Dose: 4 mg Pt Own ( Dexmethylphenidate Er 20 Mg Capsule) 1 each PO DAILY [facility] Last Admin: 03/19/24 08:58 Dose: 1 each Non-Formulary Medication (Patient Own Medication) 1 each PO DAILY@1300 [facility] Last Admin: 03/19/24 13:19 Dose: 1 each Olanzapine (Olanzapine 5 Mg Tablet) 5 mg PO TID PRN PRN Reason: agitation/hypomania Risperidone (Risperidone 2 Mg Tablet) 2 mg PO BEDTIME [facility] Last Admin: 03/19/24 22:25 Dose: 2 mg Trazodone HCl (Trazodone Hcl 50 Mg Tablet) 50 mg PO BEDTIME MRX1 PRN PRN Reason: Insomnia Last Admin: 03/16/24 22:21 Dose: 50 mg Allergies Allergies Allergy/AdvReac Type Severity Reaction Status Date / Time No Known Allergies Allergy Verified 03/13/24 12:43 [No Known Allergies*] Assessment & Plan Assessment & Plan (1) Bipolar II disorder: Status: Acute Code(s): F31.81 - Bipolar II disorder (2) PTSD (post-traumatic stress disorder): Status: Acute Code(s): F43.10 - Post-traumatic stress disorder, unspecified (3) Attention deficit hyperactivity disorder (ADHD): Status: Acute Code(s): F90.9 - Attention-deficit hyperactivity disorder, unspecified type Plan HPI: Patient is a 23-year-old male with history of bipolar type 2, PTSD, ADHD who presents for worsening PTSD symptoms AH in the face of recent homelessness and feeling threatened by patrons at homeless care home. Patient reports that he takes his Lamictal, Prozac and Focalin regularly. His grandparents are selling the house and got a restraining order on him. Patient denies making any threats or being physical towards them at all but says that he will get triggered by them and sometimes yell loudly at them. Because of this he found himself homeless and went to a care home; there was a large, menacing male individual who said He's my target.. And followed patient down the street as patient sought to get away from this person. Patient felt his PTSD significant triggered though he did not want to discuss details. Patient reports this past week he also heard a baby crying in the house; he knows rationally there is no baby there at all and thinks that maybe there was a [place] in the house that his mind changed into the sound but the sound seem so real he went to look for the baby. He reports sometimes he will hears parents talking and think they are talking about him when they are not. Patient reports that these AH and paranoid thinking seem to be episodic only and that he has been in a hypomanic state for the past week, which he describes as talking in a faster pace and more irritable; difficult to discern sleep since he has been homeless. Patient denies any SI or HI; denies any drug or alcohol abuse other than cannabis. Wants help with medication management. Formulation/clinical reasoning: Patient may have bipolar type 2 and was having a mild hypomanic episode, exacerbated by PTSD (and ADHD). Patient does not present as manic. He reports that AH and paranoid thoughts are episodic; says he is not sure if they are ever present outside of such episodes. For now will continue with bipolar type 2 diagnosis; rule out schizoaffective disorder. Hospital course 03/18 Patient presents as somewhat hypomanic. He has some pressured speech and although he is aware of it tries to limit himself, the pressured speech returns. He agrees that this could be hypomania though still thinks that his PTSD was aggravated recently which is part of the cause; did not want to discuss too much about what triggered his PTSD other than to say was talking to a girl on the phone. He agreed to increase Risperdal qhs. Reports not sleep that much last night because he was staying up talking to a peer. Patient really did not want director underwriter sales to stop Focalin; director underwriter sales agreed to allow it for another day but explained if patient's oly persist or increased will definitely have to hold it 03/19 patient remains mildly hypomanic; agrees to increase Risperdal to 2 mg q.h.s. and understands that Focalin will be held. Patient reports overall feeling better and wants to discharge. He is not in imminent risk for harm to self or others and discharge will be granted. He is going to remain on the unit for a couple days so see if increased risperdal will help. 03/20 Plans discharge for 03/21 Plan: 3 day notice Q 15 minute checks On admission, Lamictal increased to 150mg (up from 100) Increase to Risperdal 2 mg q.h.s. Continue Clonidine 0.1 q4h anxiety/insomnia Added Hydroxyzine for anxiety Continue Fluoxetine 40mg daily; will start tomorrow if remains stable Holding Focalin extended-release and then immediate release in the afternoon Informed Consent: understands Reason for continued inpatient stay Substantial Risk for: stable for discharge Time Spent With Patient Time: Total time managing care of this patient today ____ minutes.
[2024-03-20 09:05] VITALS: BP 120/56; PULSE 81; RESP 16; TEMP 36.4; O2SAT 99
[2024-03-20] MEDS: Lactase TABLET 1 TAB PO ×3 (09:30→17:37)
[2024-03-20] MEDS: guanFACINE HCl ER 1 MG TAB.ER.24H PO (09:30)
[2024-03-20] MEDS: FLUoxetine HCl 20 MG CAPSULE 40 MG PO (09:30)
[2024-03-20] MEDS: Nicotine Polacrilex Lozenge 4 MG LOZENGE BUCCAL ×3 (10:42→21:38)
[2024-03-20 13:50] VITALS: BP 133/63
[2024-03-20] MEDS: cloNIDine HCL 0.1 MG TABLET PO (13:50)
[2024-03-20 20:00] VITALS: BP 132/57; PULSE 104; TEMP 36.3; O2SAT 98
[2024-03-20] MEDS: lamoTRIgine 100 MG TABLET 150 MG PO (21:38)
[2024-03-20] MEDS: Melatonin 3 MG TABLET 9 MG PO (21:40)
[2024-03-20] MEDS: OLANZapine 5 MG TABLET PO (21:41)
[2024-03-20] MEDS: Acetaminophen 325 MG TABLET 650 MG PO (21:47)
[2024-03-21 08:16] VITALS: BP 118/69; PULSE 77; RESP 16; TEMP 36.4; O2SAT 94
[2024-03-21] MEDS: Nicotine Polacrilex Lozenge 4 MG LOZENGE BUCCAL (09:11)
[2024-03-21] MEDS: FLUoxetine HCl 20 MG CAPSULE 40 MG PO (09:11)
[2024-03-21] MEDS: guanFACINE HCl ER 1 MG TAB.ER.24H PO (09:11)
[2024-03-21] MEDS: Lactase TABLET 1 TAB PO (09:11)
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
== END 2024-03-21 12:25 | disposition other institution (70) | DRG 753 ==
LOC: HO.ED 12:55 → HO.PM5 03-15 12:49
PROVIDERS: Nurse Practitioner Family; Admitting Provider Psychiatry & Neurology Psychiatry; Emergency Provider Emergency Medicine; Visit Provider Psychiatry & Neurology Psychiatry
DX: F31.81 Bipolar II disorder (principal); F17.210 Nicotine dependence, cigarettes, uncomplicated; F90.9 Attention-deficit hyperactivity disorder, unspecified type; F43.10 Post-traumatic stress disorder, unspecified; Z71.6 Tobacco abuse counseling; Z59.02 Unsheltered homelessness; Z79.899 Other long term (current) drug therapy
CPT/HCPCS: 36415; 80048; 80061; 80076; 80143; 80175; 80179; 80307; 81003; 83036; 84443; 85025; 99285; S9485

== ENCOUNTER → 2024-03-15 12:30 | Outpatient (BNV) | payer BC, MEDICAID, SELFPAY | PROVIDERS: Admitting Provider Psychiatry & Neurology Psychiatry; Emergency Provider Emergency Medicine; Visit Provider Psychiatry & Neurology Psychiatry | DX: F31.81 Bipolar II disorder (principal); F43.11 Post-traumatic stress disorder, acute; F90.9 Attention-deficit hyperactivity disorder, unspecified type | CPT/HCPCS: 90792; 99231; 99232; 99238 ==

== ENCOUNTER 2024-03-29 14:32 | Inpatient (IN) | payer BC, MEDICAID, SELFPAY ==
[2024-03-29 14:36] VITALS: BP 129/46; PULSE 81; RESP 16; TEMP 36.3; O2SAT 98; BMI 24.4
--- NOTE | 2024-03-29 16:17 | ED_ITS ---
HPI - Psych General Chief Complaint: Psychiatric Symptoms Stated Complaint: crisis and sts fainted Time Seen by Provider: 03/29/24 15:53 Source: patient and old records reviewed Mode of arrival: ambulatory Limitations: no limitations History of Present Illness ED Provider: DR. Neely HPI Narrative: 23-year-old male with history of bipolar type 2, PTSD, ADHD patient currently is homeless presented from respite for symptoms of anxiety versus near syncope after he received a ticket that his sister is having seizure, patient is a vague historian sometimes feel suicidal but no suicidal ideation currently, sometimes here voices but not now, patient declined using recreational drugs today or drinking alcohol. No chest pain, no shortness of breath, no difficulty breathing, no fever, no chi lls, no abdominal pain. Related Data Previous Rx's ?Medication ?Instructions ?Recorded clonidine HCl 0.1 mg tablet 0.1 mg PO Q4H PRN anxiety/insomnia 03/21/24 #14 tabs fluoxetine 20 mg capsule 40 mg (2 x 20 mg) PO DAILY #60 caps 03/21/24 guanfacine 1 mg tablet,extended 1 mg PO DAILY #15 tabs 03/21/24 release 24 hr lactase 3,000 unit tablet 3,000 unit PO TIDWM #90 tabs 03/21/24 (Dairy-Aid) lamotrigine 100 mg tablet 150 mg (1.5 x 100 mg) PO BEDTIME 03/21/24 #45 tabs melatonin 3 mg tablet 9 mg (3 x 3 mg) PO BEDTIME PRN for 03/21/24 insomnia #90 tabs nicotine (polacrilex) 4 mg buccal 4 mg buccal Q2H PRN Nicotine 03/21/24 lozenge Cravings #81 ea olanzapine 5 mg tablet 5 mg PO TID PRN 03/21/24 agitation/hypomania #20 tabs risperidone 2 mg tablet 2 mg PO BEDTIME #30 tabs 03/21/24 trazodone 50 mg tablet 50 mg PO BEDTIME MRX1 PRN Insomnia 03/21/24 #30 tabs Allergies Allergy/AdvReac Type Severity Reaction Status Date / Time No Known Allergies Allergy Verified 03/29/24 14:41 [No Known Allergies*] Review of Systems Review of Systems: All other systems are reviewed and are negative Constitutional: Reports as per HPI and Reports no additional constitutional co mplaints Eyes: Reports as per HPI and Reports no additional eye complaints Reports system reviewed and no additional complaints, except as documented Cardiovascular: Reports as per HPI and Reports no additional cardiovascular complaints Respiratory: Reports as per HPI and Reports no additional respiratory complaints Gastrointestinal: Reports as per HPI and Reports no additional gastrointestinal complaints Genitourinary: Reports no additional female genitourinary complaints Musculoskeletal: Reports no additional musculoskeletal complaints Skin/Breast: Reports system reviewed and no additional complaints, except as docu Psychiatric: Reports no additional psychiatric complaints Endocrine: Reports no additional endocrine complaints Hematologic/Lymphatic: Reports no additional hematologic/lymphatic complaints Allergic/Immunologic: Reports no additional allergic/immunologic complaints Reports system reviewed and no additional complaints, except as documented and Reports Abnormal speech present [facility] Past Medical History Medical History PTSD (post-traumatic stress disorder) No known health problems Social History Social History Household Members: None Housing: Homeless Do you presently have visiting nurse or other home services: No Alcohol intake: never Patient Tobacco Use Status: Current everyday Tobacco user Tobacco use type: Cigarette Cigarette Packs Per Day: 0 Cigarettes Per Day: 5 Years Smoked: 3 e-Cigarette/Vaping Use: Never Used Second Hand Smoke Exposure: Yes Substance Use Type: Marijuana and Caffiene Advance Directives: No Advance Directives Information Provided: No Do you have a plan to hurt others: No Plan service: No Sexual orientation: Polyamorous Physical Exam Vital Signs: Vital Signs: Last Vital Signs Temp 97.4 F 03/29/24 14:36 Pulse 81 03/29/24 14:36 Resp 16 03/29/24 14:36 BP 129/46 L 03/29/24 14:36 Pulse Ox 98 03/29/24 14:36 O2 Del Method Room Air 03/29/24 14:36 BMI result Body Mass Index 24.4 Vital signs have been reviewed and appear to be correct. Blood pressure elevated. Heart rate normal. Respiratory rate normal. Temperature normal. Oxygen saturation normal. Appearance: Alert. Oriented X3. No acute distress. Head: Normal external exam. Normocephalic. Atraumatic. No George signs noted. No raccoon eyes noted Eyes: PERRLA. EOMI. Conjunctiva and sclera normal. Eyelids normal. ENT: TM's Normal. Pharynx normal. Uvula midline. Moist mucous membranes. No trismus noted. No drooling noted. No muffled voice noted. Neck: Normal inspection. Neck supple. FROM. No adenopathy. Thyroid Normal. No meningeal signs. No neck mass noted. CVS: Normal heart rate and rhythm. Heart sound normal. No murmurs noted. Pulses normal throughout. Respiratory: No respiratory distress. Painless inspiration. Breath sounds normal. No wheezes/rales/rhonchi noted. Chest nontender. No accessory muscle usage noted or decreased air movement noted. Abdomen: Soft and nontender. Bowel sounds normal in all 4 quadrants. No distention noted. No organomegaly noted. No visible injury noted. Back: No CVA tenderness. Full range of motion noted. Skin: Skin warm and dry. Normal skin color. Normal skin turgor. No rashes/lesions/lacerations noted. Extremities: No lower extremity edema. Extremities exhibit normal range of motion. Extremities nontender. Neuro: Oriented X 3. Cranial nerve exam: II-XII are grossly intact No motor deficit. No sensory deficit. Reflexes normal. Patient Orientation: Person, Place, Time and Situation, okay hygiene and grooming. Fair eye contact, attentive, no tics or tremors. Level of Consciousness: Awake, Appropriate and Alert Patient Behavior: Appropriate, Guarded, Cooperative and Anxious Mood Description: Constricted, Blunted and Apprehensive Affect Description: Constricted, Blunted and Apprehensive Patient Cognition Impaired: No Ability to Follow Directions: Excellent Speech Pattern: Clear, Appropriate and Spontaneous Speech, nonpressured, spontaneous with regular rate and rhythm, normal volume and prosody. No dysarthria. Memory Description: Intact, Immediate Intact and Short Term Intact Hallucinations: None Delusions: Not Present Thought Process: Intact Thought Content: positive for Intact, positive for Logical, denies Suicidal Ideation and denies Homicidal Ideation. Depressive Symptoms: Not present. Judgement and Insight: Limited but adequate. Course Reevaluation(s) Reevaluation #1: PTSD exacerbation, currently no SI, no HI, patient is homeless, await for care team evaluation. Will start physician observation. Time: 16:24 Medical Decision Making Differential Diagnosis Differential Diagnoses: The differential diagnosis associated with the presentation includes (Acute psychosis, depression, SI, medical clearance.) Admission/Observation Consideration of admission/observation: Escalation of care including admission/observation considered Lab Data MDM Lab Attestation statement: I reviewed the patient's lab results. Discharge Plan Discharge Clinical Impression: PTSD (post-traumatic stress disorder), Bipolar II disorder Patient Disposition: Still a Patient Prescriptions: No Action nicotine (polacrilex) 4 mg Lozenge 4 mg buccal Q2H PRN (Reason: Nicotine Cravings) Qty: 81 0RF clonidine HCl 0.1 mg Tablet 0.1 mg PO Q4H PRN (Reason: anxiety/insomnia) Qty: 14 2RF Protocol: Hold for SBP< HOLD for SBP < : 90 trazodone 50 mg Tablet 50 mg PO BEDTIME MRX1 PRN (Reason: Insomnia) Qty: 30 0RF olanzapine 5 mg Tablet 5 mg PO TID PRN (Reason: agitation/hypomania) Qty: 20 0RF melatonin 3 mg Tablet 9 mg PO BEDTIME PRN (Reason: for insomnia) Qty: 90 0RF risperidone 2 mg Tablet 2 mg PO BEDTIME Qty: 30 0RF lactase [Dairy-Aid] 3,000 unit Tablet 3,000 unit PO TIDWM Qty: 90 0RF fluoxetine 20 mg Capsule 40 mg PO DAILY Qty: 60 0RF lamotrigine 100 mg Tablet 150 mg PO BEDTIME Qty: 45 0RF guanfacine 1 mg Tablet Extended Release 24 Hr 1 mg PO DAILY Qty: 15 1RF Print Language: Sami
[2024-03-29 16:29] LABS: MANUAL DIFF FLAG NO
[2024-03-29 16:30] LABS: Basophils Absolute Auto 0.1 X10*3/uL (0.0-0.2); Basophils Percent Auto 0.9 % (0-2); Eosinophils Absolute Auto 0.7 X10*3/uL (0.0-0.4); Eosinophils Percent Auto 9.1 % (0-4); Hematocrit 39.9 % (42.0-52.0); Hemoglobin 13.7 g/dl (14.0-18.0); Imm Gran Abs Auto 0.01 X10*3/uL (0.00-0.03); Imm Gran Pct Auto 0.1 % (0.0-0.4); Lymphocytes Percent Auto 26.8 % (20-40); Mean Corpuscular HGB Conc 34.3 g/dl (31.0-36.0); Mean Corpuscular Hemoglobin 31.1 pg (27.0-33.0); Mean Corpuscular Volume 90.5 fL (80.0-98.0); Monocytes Absolute Auto 0.7 X10*3/uL (0.1-1.2); Monocytes Percent Auto 8.8 % (2-11); Neutrophils Percent Auto 54.3 % (45-73); Platelet Count 206 X10*3/uL (160-400); Red Blood Count 4.41 X10*6/uL (4.60-5.80); Red Cell Distribution Width 12.8 % (11.0-16.0); White Blood Count 7.4 X10*3/uL (4.8-10.8)
[2024-03-29 16:33] VITALS: BP 129/46; PULSE 81; RESP 16; TEMP 36.3; O2SAT 98
[2024-03-29 16:43] LABS: Appearance Urine Turbid; Color Urine Yellow; Glucose Urine UA Negative (Negative); Leukocyte Esterase Urine Negative (Negative); Nitrite Urine Negative (Negative); PH 7.5 (5.0-9.0); Urine Blood Negative (Negative); Urine Ketones Negative (Negative); Urine Protein Negative (Neg-Trace)
[2024-03-29 16:49] LABS: Amphetamine Screen Urine Not Detected (Not Detect); Barbiturates, Urine Not Detected (Not Detect); Benzodiazepines Screen Urine Not Detected (Not Detect); Buprenorphine Scr Not Detected (Not Detect); Cannabinoid Screen Urine Not Detected (Not Detect); Cocaine Screen Urine Not Detected (Not Detect); Fentanyl, urine Not Detected (Not Detect); Methadone Screen, Urine Not Detected (Not Detect); Opiate Screen Urine Not Detected (Not Detect); Oxycodone Screen Urine Not Detected (Not Detect); Phencyclidine Screen Urine Not Detected (Not Detect)
[2024-03-29 17:13] LABS: Alanine Aminotransferase 51 U/L (0-40); Albumin Level 4.5 g/dL (3.5-5.0); Anion Gap 9 (12-20); Aspartate Amino Transferase 20 U/L (5-37); Bilirubin Direct < 0.2 mg/dL (0.0-0.5); Bilirubin Total 0.2 mg/dL (0.0-1.0); Blood Urea Nitrogen 10 mg/dL (9-16); Calcium 9.7 mg/dL (8.4-10.2); Carbon Dioxide 31 mmol/L (22-29); Chloride 107 mmol/L (96-108); Creatinine Clr Calc Pharmacy 139.4; Estimated Glomerular Filt Rate > 60; Ethanol < 10 mg/dL; Glucose Random 111 mg/dL (60-115); Potassium 4.3 mmol/L (3.3-5.1); Sodium 143 mmol/L (135-145); Total Protein 7.2 g/dL (6.5-8.0)
[2024-03-29 17:21] LABS: Alkaline Phosphatase 64 U/L (39-117)
[2024-03-30] MEDS: Melatonin 3 MG TABLET 9 MG PO (00:51)
[2024-03-30 18:11] VITALS: BP 120/66; PULSE 73; RESP 18; TEMP 36.8; O2SAT 100
[2024-03-30] MEDS: lamoTRIgine 25 MG TABLET 150 MG PO (21:47)
--- NOTE | 2024-03-31 | ECG_ITS ---
Test Reason : chect qt Blood Pressure : / mmHG Vent. Rate : 063 BPM Atrial Rate : 063 BPM P-R Int : 112 ms QRS Dur : 090 ms QT Int : 412 ms P-R-T Axes : 046 079 053 degrees QTc Int : 421 ms Normal sinus rhythm with sinus arrhythmia Normal ECG When compared with ECG of 11-MAY-2021 10:02, No significant change was found Referred By: Carole Neely Electronically Signed By:ELISABET STANLEY
[2024-03-31] MEDS: Melatonin 3 MG TABLET 9 MG PO (00:22)
[2024-03-31] MEDS: Nicotine Polacrilex Lozenge 4 MG LOZENGE BUCCAL ×4 (00:23→21:29)
[2024-03-31] MEDS: cloNIDine HCL 0.1 MG TABLET PO ×2 (02:56→15:19)
[2024-03-31 06:19] VITALS: RESP 16
--- NOTE | 2024-03-31 07:08 | PC.NURSE ---
report received from previous RN, patient resting comfortably on stretcher at this time, not offering any complaints, respirations even and unlabored, plan of care ongoing
[2024-03-31] MEDS: guanFACINE HCl ER 1 MG TAB.ER.24H PO (08:36)
[2024-03-31] MEDS: Lactase TABLET 1 TAB PO ×2 (08:36→17:42)
[2024-03-31] MEDS: FLUoxetine HCl 20 MG CAPSULE 40 MG PO (08:36)
[2024-03-31 15:00] VITALS: BP 128/71; PULSE 71; RESP 14; TEMP 37; O2SAT 100; BMI 23.6
--- NOTE | 2024-03-31 15:13 | PHA.MEDREC ---
Addendum entered by Jenelle Claros RPh 03/31/24 15:19: reviewed by [facility]. Original Note: Pharmacy Consult ? Medication Reconciliation Pharmacy reviewed med rec done by nursing and utilized DC packet from 03/21/24 and confirmed list.
[2024-03-31] MEDS: Acetaminophen 325 MG TABLET 650 MG PO (15:19)
[2024-03-31] MEDS: Nicotine 7 MG PATCH.TD24 TRANSDERMA (15:19)
--- NOTE | 2024-03-31 15:48 | PC.ADMIT ---
23 y/o male admitted to on a CV at 1405 from [facility]. Pt admitted for hypomania, increased anxiety, and racing thoughts. Pt has hx of PTSD, Bipolar type 2, and ADHD. Pt recently discharged from on 03/21/24. Pt pleasant and cooperative with admission process. Pt presented with rapid and pressured speech. Pt described himself as feeling hypomanic and felt it beneficial to be re-admitted. Pt denied active thoughts to harm self or others, but reported due to his PTSD he can get triggered and begin to have violent thoughts. Pt stated he was good at self advocating for prns and reported Zyprexa helped the best when those thoughts arise. Pt denied AVH, however stated he had a history AVH after an episode of severe depression that lead to psychosis. Following pt's recent discharge, pt reported he spent approximately one week at a respite in [place]. [facility], and even fell in love at first sight with a person whose name he couldn't remember. Pt stated after the person left respite, he began to feel more restless with racing thoughts. Pt stated there was also a conversation with a peer at [facility] about suicide, which caused him to feel triggered. Pt stated that he struggled dealing with both events, and then the day of his arrival to the ED pt stated he received a text message from his stepmother that stated his four year old sister suffered a big seizure . Pt stated after reading the text message he immediately began to feel pressure on the right side of his head, dizziness, and nausea. Pt stated I felt like a broken car that's offset . Pt described not being about to move his head without discomfort. My axis was broken. When I moved my head the pressure was worse . Pt stated he went to lay down, and was unsure if he lost consciousness. Pt reported he notified staff at the respite that he was not feeling well, who then sent him to [facility] for evaluation. Pt was medically cleared in ED after being evaluated for anxiety vs syncopal episode. Tox screen was negative. Pt reported he smoked marijuana once after discharge. Pt denied regular ETOH use, and stated I maybe had one drink over the last month. Pt is an every day nicotine user utilizing a nicotine patch and lozenge. Pt placed on 15 minute checks for safety.
[2024-03-31 20:00] VITALS: BP 123/58; PULSE 82; RESP 16; TEMP 35.8; O2SAT 100
[2024-03-31] MEDS: lamoTRIgine 25 MG TABLET 150 MG PO (20:54)
[2024-03-31] MEDS: risperiDONE 0.5 MG TABLET PO (20:54)
[2024-04-01 07:00] VITALS: BMI 23.6
[2024-04-01 08:00] VITALS: BP 167/57; PULSE 65; RESP 20; TEMP 36.4; O2SAT 100
[2024-04-01 08:11] VITALS: BP 167/57
[2024-04-01] MEDS: Lactase TABLET 1 TAB PO ×3 (08:11→17:31)
[2024-04-01] MEDS: cloNIDine HCL 0.1 MG TABLET PO ×2 (08:11→15:56)
[2024-04-01] MEDS: FLUoxetine HCl 20 MG CAPSULE 40 MG PO (08:12)
[2024-04-01] MEDS: guanFACINE HCl ER 1 MG TAB.ER.24H PO (08:12)
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
[2024-04-01] MEDS: Nicotine Polacrilex Lozenge 4 MG LOZENGE BUCCAL ×5 (10:02→23:19)
[2024-04-01] MEDS: Nicotine 14 MG PATCH.TD24 TRANSDERMA (10:05)
[2024-04-01 15:56] VITALS: BP 127/67
[2024-04-01 15:57] VITALS: BP 127/67; PULSE 84
[2024-04-01 20:00] VITALS: BP 119/57; PULSE 86; RESP 18; TEMP 36.1; O2SAT 100
[2024-04-01] MEDS: Lithium Carbonate ER 300 MG TABLET.ER 600 MG PO (23:16)
[2024-04-01] MEDS: lamoTRIgine 25 MG TABLET 150 MG PO (23:16)
[2024-04-02 02:25] VITALS: BP 127/83
[2024-04-02] MEDS: cloNIDine HCL 0.1 MG TABLET PO ×2 (02:25→21:36)
[2024-04-02] MEDS: Nicotine Polacrilex Lozenge 4 MG LOZENGE BUCCAL ×5 (02:28→21:36)
[2024-04-02 08:00] VITALS: BP 129/59; PULSE 74; RESP 16; TEMP 36.5; O2SAT 100
[2024-04-02] MEDS: guanFACINE HCl ER 1 MG TAB.ER.24H PO (09:53)
[2024-04-02] MEDS: Lactase TABLET 1 TAB PO ×4 (09:53→23:37)
--- NOTE | 2024-04-02 12:48 | HO.PSYCHPN ---
Subjective Subjective Date of Service: 04/02/24 Reason For Visit: Hypomanic Interim History: Met with patient; discussed with team Patient stayed up all night, did not sleep discussed med regimen and pt agrees to take zyprexa qhs tonight if can't sleep. Says likes [place] though and says rhina is like being a reckless teenager... he dislikes it since he knows it's going to cause trouble for him. Agrees to increase Lamictal Mental Status Exam Mental Status Exam Narrative: Pt is alert and oriented; behavior is hypomanic, cooperative; patient is not in distress; dressed in casual attire with unkempt hair but adequate hygiene; mood is described as anxious and affect congruent; eye contact appropriate; Speech is verbose and mild to moderately pressured; some psychomotor agitation present; thought process is circumstantial and distracted, can be goal oriented; Thought content is on recent events, PTSD, tx; no delusional content expressed; denies any SI/HI. No AVH; Patients insight and judgment impaired but improving Diagnostics Vital Signs (24Hr): Vital Signs - 24 hr 04/01/24 15:56 04/01/24 15:57 04/01/24 20:00 Temperature 96.9 F Pulse Rate 84 86 Respiratory Rate 18 Blood Pressure 127/67 127/67 119/57 L Pulse Oximetry 100 Oxygen Delivery Method Room Air 04/02/24 02:25 04/02/24 08:00 Temperature 97.7 F Pulse Rate 74 Respiratory Rate 16 Blood Pressure 127/83 129/59 L Pulse Oximetry 100 Oxygen Delivery Method BMI result Body Mass Index 23.6 Labs 03/29/24 16:19 03/29/24 16:19 Medications Medications Current Medications Acetaminophen (Acetaminophen 325 Mg Tablet) 650 mg PO Q6H PRN PRN Reason: Headache/Pain Mild Scale (1-3) Last Admin: 03/31/24 15:19 Dose: 650 mg Al Hydroxide/Mg Hydroxide (Magnesium Hydrox/Alum Hydrox 30 Ml Oral.Susp) 30 ml PO Q6H PRN PRN Reason: Heartburn/Nausea Clonidine HCl (Clonidine Hcl 0.1 Mg Tablet) 0.1 mg PO Q4H PRN; Protocol PRN Reason: anxiety/insomnia Last Admin: 04/02/24 02:25 Dose: 0.1 mg Fluoxetine HCl (Fluoxetine Hcl 20 Mg Capsule) 40 mg PO DAILY [facility] Last Admin: 04/02/24 10:32 Dose: Not Given Guanfacine HCl (Guanfacine Hcl Er 1 Mg Tab.Er.24h) 1 mg PO DAILY [facility] Last Admin: 04/02/24 09:53 Dose: 1 mg Hydroxyzine HCl (Hydroxyzine Hcl 25 Mg Tablet) 25 mg PO Q6H PRN PRN Reason: Anxiety Lactase (Lactase Tablet) 1 tab PO TIDWM [facility] Last Admin: 04/02/24 12:38 Dose: 1 tab Lamotrigine (Lamotrigine 25 Mg Tablet) 150 mg PO BEDTIME [facility] Last Admin: 04/01/24 23:16 Dose: 150 mg [place] Carbonate ([place] Carbonate Er 300 Mg Tablet.Er) 600 mg PO BEDTIME [facility] Last Admin: 04/01/24 23:16 Dose: 600 mg Magnesium Hydroxide (Milk Of Magnesia 30 Ml Oral.Susp) 30 ml PO DAILY PRN PRN Reason: Constipation Melatonin (Melatonin 3 Mg Tablet) 9 mg PO BEDTIME PRN PRN Reason: for insomnia Last Admin: 03/31/24 00:22 Dose: 9 mg Nicotine (Nicotine 21 Mg Patch.Td24) 21 mg TRANSDERMA DAILY PRN PRN Reason: smoking cessation Nicotine Polacrilex (Nicotine Polacrilex Lozenge 4 Mg Lozenge) 4 mg BUCCAL Q2H PRN PRN Reason: Nicotine Cravings Last Admin: 04/02/24 02:28 Dose: 4 mg Olanzapine (Olanzapine 5 Mg Tablet) 5 mg PO TID PRN PRN Reason: agitation/hypomania Allergies Allergies Allergy/AdvReac Type Severity Reaction Status Date / Time No Known Allergies Allergy Verified 03/29/24 14:41 [No Known Allergies*] Assessment & Plan Assessment & Plan (1) Bipolar I disorder: Status: Acute Code(s): F31.9 - Bipolar disorder, unspecified (2) Attention deficit hyperactivity disorder (ADHD): Status: Acute Code(s): F90.9 - Attention-deficit hyperactivity disorder, unspecified type (3) PTSD (post-traumatic stress disorder): Status: Acute Code(s): F43.10 - Post-traumatic stress disorder, unspecified Plan Patient is a 23-year-old male with history of bipolar type 2, PTSD, ADHD, recently discharged from on 03/23/24 who self-presents for continued Rhina, PTSD symptoms, AH. Patient reports that after he left hospital he went to [facility] homeless retirement but got lost in [him]self... 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 Patient said he started getting dizzy, hypomanic and was not eating or drinking. He then got a text from his stepmother that his sister had a seizure and patient is not sure what happened next, thinking he either panicked, lost consciousness but the room was spinning and he felt dizzy. Staff at a [facility] urged him to go to the emergency room; patient said he had hard time accepting their insistence because the right side of [his] brain felt abstract and it was hard to speak... However he did end up going to the emergency room. Endorsed intense flashbacks of trauma from the past. Patient endorsed paranoid thoughts given example that if he hurt keys jingle he thought maybe the superintendent transmission were here for; not sure if he had auditory hallucinations, saying there were just actual sounds but that he misinterpreted them. No SI. Clinical reasons/formulation: Patient presents again with manic symptoms, enough to get him hospitalized for 2nd time in a week. Discussed interplay between PTSD triggering rhina and vice versa; Patient starting to come to the conclusion that his rhina needs a traditional mood stabilizer. 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 Agrees to increase lamictal Plan: CV Q 15 minute checks Continue lithium ER 600 mg q.h.s. -Labs ordered InCrease to Lamictal 200mg zyprexa prn qhs for insomnia Hold Focalin Hold fluoxetine DC Risperdal for now, hopefully monotherapy with lithium will be effective Patient educated on: diagnosis, medication risk/benefits and therapeutic strategies Informed Consent: understands Reason for continued inpatient stay Substantial Risk for: rapid decompensation Time Spent With Patient Time: Total time managing care of this patient today ____ minutes.
[2024-04-02] MEDS: Nicotine 21 MG PATCH.TD24 TRANSDERMA (13:04)
[2024-04-02 20:00] VITALS: RESP 15
[2024-04-02] MEDS: lamoTRIgine 100 MG TABLET 200 MG PO (21:12)
[2024-04-02] MEDS: Lithium Carbonate ER 300 MG TABLET.ER 600 MG PO (21:13)
[2024-04-03] MEDS: Magnesium Hydrox/Alum Hydrox 30 ML ORAL.SUSP PO (01:25)
[2024-04-03] MEDS: Nicotine Polacrilex Lozenge 4 MG LOZENGE BUCCAL ×6 (01:25→20:06)
[2024-04-03 07:05] VITALS: BP 105/54; PULSE 62; RESP 15
[2024-04-03] MEDS: hydrOXYzine HCL 25 MG TABLET PO (07:15)
[2024-04-03 08:00] VITALS: BP 116/66; PULSE 71; RESP 17; TEMP 35.9; O2SAT 100
[2024-04-03] MEDS: Nicotine 21 MG PATCH.TD24 TRANSDERMA (08:32)
[2024-04-03] MEDS: Acetaminophen 325 MG TABLET 650 MG PO (08:34)
[2024-04-03] MEDS: Lactase TABLET 1 TAB PO ×4 (08:54→21:47)
[2024-04-03] MEDS: guanFACINE HCl ER 1 MG TAB.ER.24H PO (08:54)
--- NOTE | 2024-04-03 10:30 | P.PNPSI_ITS ---
Subjective Subjective Date of Service: 04/03/24 Reason For Visit: Hypomanic Subjective Notes: Conditional Voluntary Healthcare Proxy: No Guardianship: No Medical Problems Affecting Mental Status: No Interim History: 23 yo WM reports clonidine really helpful for am anxiety wants to take it every am- not just prn- took x last 3 days asking about short acting antidepressants since prozac is being held- told him we usually treated bipolar with atypical antipsychotics or mood stabilizers and that helps the depression - Medication Compliance: Yes Side effects from medications: No Attending Groups: Yes Review of Systems Acute medical concerns: No Medical Review of Systems: unchanged Mental Status Exam Mental Status Exam Narrative: keeps walking around while talking sometimes going in and out of kitchen- using tissues- Patient Appearance: Appropriate Patient Orientation: Person, Place, Time and Situation Level of Consciousness: Awake and Alert Patient Behavior: Talkative, Hyperactive and Distractible Mood Description: Expansive Affect Description: Happy Patient Cognition Impaired: No Ability to Follow Directions: Fair Speech Pattern: Clear Hallucinations: None Thought Process: Racing Thought Content: positive for Tangential Depressive Symptoms: Increased Anxiety Abnormal Motor Activity Signs and Symptoms: Restlessness Judgement: Fair Diagnostics Vital Signs (24Hr): Vital Signs - 24 hr 04/02/24 20:00 04/03/24 07:05 Pulse Rate 62 Respiratory Rate 15 15 Blood Pressure 105/54 L BMI result Body Mass Index 23.6 Labs 03/29/24 16:19 03/29/24 16:19 Medications Medications Current Medications Acetaminophen (Acetaminophen 325 Mg Tablet) 650 mg PO Q6H PRN PRN Reason: Headache/Pain Mild Scale (1-3) Last Admin: 04/03/24 08:34 Dose: 650 mg Al Hydroxide/Mg Hydroxide (Magnesium Hydrox/Alum Hydrox 30 Ml Oral.Susp) 30 ml PO Q6H PRN PRN Reason: Heartburn/Nausea Last Admin: 04/03/24 01:25 Dose: 30 ml Clonidine HCl (Clonidine Hcl 0.1 Mg Tablet) 0.1 mg PO Q4H PRN; Protocol PRN Reason: anxiety/insomnia Last Admin: 04/02/24 21:36 Dose: 0.1 mg Fluoxetine HCl (Fluoxetine Hcl 20 Mg Capsule) 40 mg PO DAILY [facility] Last Admin: 04/02/24 10:32 Dose: Not Given Guanfacine HCl (Guanfacine Hcl Er 1 Mg Tab.Er.24h) 1 mg PO DAILY [facility] Last Admin: 04/03/24 08:54 Dose: 1 mg Hydroxyzine HCl (Hydroxyzine Hcl 25 Mg Tablet) 25 mg PO Q6H PRN PRN Reason: Anxiety Last Admin: 04/03/24 07:15 Dose: 25 mg Lactase (Lactase Tablet) 1 tab PO QIDWMHS [facility] Last Admin: 04/03/24 08:54 Dose: 1 tab Lamotrigine (Lamotrigine 100 Mg Tablet) 200 mg PO BEDTIME [facility] Last Admin: 04/02/24 21:12 Dose: 200 mg [place] Carbonate ([place] Carbonate Er 300 Mg Tablet.Er) 600 mg PO BEDTIME [facility] Last Admin: 04/02/24 21:13 Dose: 600 mg Magnesium Hydroxide (Milk Of Magnesia 30 Ml Oral.Susp) 30 ml PO DAILY PRN PRN Reason: Constipation Melatonin (Melatonin 3 Mg Tablet) 9 mg PO BEDTIME PRN PRN Reason: for insomnia Last Admin: 03/31/24 00:22 Dose: 9 mg Nicotine (Nicotine 21 Mg Patch.Td24) 21 mg TRANSDERMA DAILY PRN PRN Reason: smoking cessation Last Admin: 04/03/24 08:32 Dose: 21 mg Nicotine Polacrilex (Nicotine Polacrilex Lozenge 4 Mg Lozenge) 4 mg BUCCAL Q2H PRN PRN Reason: Nicotine Cravings Last Admin: 04/03/24 06:37 Dose: 4 mg Olanzapine (Olanzapine 5 Mg Tablet) 5 mg PO TID PRN PRN Reason: agitation/hypomania Olanzapine (Olanzapine 5 Mg Tablet) 5 mg PO BEDTIME PRN PRN Reason: Insomnia Allergies Allergies Allergy/AdvReac Type Severity Reaction Status Date / Time No Known Allergies Allergy Verified 03/29/24 14:41 [No Known Allergies*] Assessment & Plan Assessment & Plan (1) Bipolar I disorder: Status: Acute Code(s): F31.9 - Bipolar disorder, unspecified (2) Attention deficit hyperactivity disorder (ADHD): Status: Acute Code(s): F90.9 - Attention-deficit hyperactivity disorder, unspecified type (3) PTSD (post-traumatic stress disorder): Status: Acute Code(s): F43.10 - Post-traumatic stress disorder, unspecified Plan Patient is a 23-year-old male with history of bipolar type 2, PTSD, ADHD, recently discharged from [facility] on 03/23/24 who self-presents for continued Rhina, PTSD symptoms, AH. Patient reports that after he left hospital he went to [facility] homeless halfway but got lost in [him]self... 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 Patient said he started getting dizzy, hypomanic and was not eating or drinking. He then got a text from his stepmother that his sister had a seizure and patient is not sure what happened next, thinking he either panicked, lost consciousness but the room was spinning and he felt dizzy. Staff [facility] urged [facility] to go to the emergency room; patient said he had hard time accepting their insistence because the right side of [his] brain felt abstract and it was hard to speak... However he did end up going to the emergency room. Endorsed intense flashbacks of trauma from the past. Patient endorsed paranoid thoughts given example that if he hurt keys jingle he thought maybe the kettle hand were here for; not sure if he had auditory hallucinations, saying there were just actual sounds but that he misinterpreted them. No SI. Clinical reasons/formulation: Patient presents again with manic symptoms, enough to get him hospitalized for 2nd time in a week. Discussed interplay between PTSD triggering rhina and vice versa; Patient starting to come to the conclusion that his rhina needs a traditional mood stabilizer. 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 Agrees to increase lamictal 04/03 says he slept last pm- not clear he needed olanzapine- seems like it might benefit him - on higher lamotrigine, continues on lithium 600mg- no change meds today but will write for standing clonidine in ams- Plan: CV Q 15 minute checks Continue lithium ER 600 mg q.h.s. -Labs ordered InCrease to Lamictal 200mg zyprexa prn qhs for insomnia Hold Focalin Hold fluoxetine DC Risperdal for now, hopefully monotherapy with lithium will be effective Patient educated on: diagnosis and medication risk/benefits Informed Consent: understands and further education needed Reason for continued inpatient stay Substantial Risk for: inability to function and rapid decompensation Time Spent With Patient Time: Total time managing care of this patient today ____ minutes.
[2024-04-03] MEDS: Acetaminophen 325 MG TABLET 1000 MG PO (15:12)
[2024-04-03 20:00] VITALS: BP 142/65; PULSE 76; RESP 16; TEMP 36.1; O2SAT 100
[2024-04-03] MEDS: lamoTRIgine 100 MG TABLET 200 MG PO (21:48)
[2024-04-03 21:59] VITALS: BP 126/62
[2024-04-03] MEDS: cloNIDine HCL 0.1 MG TABLET PO (21:59)
[2024-04-03] MEDS: Lithium Carbonate ER 300 MG TABLET.ER 600 MG PO (22:30)
[2024-04-03] MEDS: OLANZapine 5 MG TABLET PO (22:42)
[2024-04-04 08:00] VITALS: BP 102/53; PULSE 65; RESP 16; TEMP 36.6; O2SAT 99
--- NOTE | 2024-04-04 10:52 | P.PNPSI_ITS ---
Subjective Subjective Date of Service: 04/04/24 Reason For Visit: Hypomanic Subjective Notes: Conditional Voluntary Healthcare Proxy: No Guardianship: No Medical Problems Affecting Mental Status: No Interim History: 23 yo WM lying in bed exhausted says he took prn olanzapine last pm but doesn't want it decreased- also pointed out to patient I added standing clonidine this am and that could also sedate him, though I moved guanfacine to - maybe just be coming down from hypomania which was all day yesterday and stayed up late playing cards with peers Medication Compliance: Yes Side effects from medications: Yes (some sedation this am, no headache today) Attending Groups: Yes Review of Systems Acute medical concerns: No Medical Review of Systems: unchanged Mental Status Exam Mental Status Exam Narrative: lying in bed Patient Orientation: Person, Place, Time and Situation Level of Consciousness: Drowsy Patient Behavior: Asleep Behavior Comments: tired today, staying in bed this m Affect Description: Blunted Patient Cognition Impaired: No Ability to Follow Directions: Fair Speech Pattern: Clear Thought Process: Intact Thought Content: positive for Intact Depressive Symptoms: Difficulty Sleeping and Loss of Energy (just today) Judgement: Fair Diagnostics Vital Signs (24Hr): Vital Signs - 24 hr 04/03/24 20:00 04/03/24 21:59 04/04/24 08:00 Temperature 96.9 F 98 F Pulse Rate 76 65 Respiratory Rate 16 16 Blood Pressure 142/65 H 126/62 102/53 L Pulse Oximetry 100 99 Oxygen Delivery Method Room Air BMI result Body Mass Index 23.6 Labs 03/29/24 16:19 03/29/24 16:19 Medications Medications Current Medications Acetaminophen (Acetaminophen 325 Mg Tablet) 1,000 mg PO Q8H PRN PRN Reason: Headache/Pain Mild Scale (1-3) Last Admin: 04/03/24 15:12 Dose: 1,000 mg Al Hydroxide/Mg Hydroxide (Magnesium Hydrox/Alum Hydrox 30 Ml Oral.Susp) 30 ml PO Q6H PRN PRN Reason: Heartburn/Nausea Last Admin: 04/03/24 01:25 Dose: 30 ml Clonidine HCl (Clonidine Hcl 0.1 Mg Tablet) 0.1 mg PO Q4H PRN; Protocol PRN Reason: anxiety/insomnia Last Admin: 04/03/24 21:59 Dose: 0.1 mg Clonidine HCl (Clonidine Hcl 0.1 Mg Tablet) 0.1 mg PO DAILY [facility]; Protocol Fluoxetine HCl (Fluoxetine Hcl 20 Mg Capsule) 40 mg PO DAILY [facility] Last Admin: 04/02/24 10:32 Dose: Not Given Guanfacine HCl (Guanfacine Hcl Er 1 Mg Tab.Er.24h) 1 mg PO BEDTIME [facility] Hydroxyzine HCl (Hydroxyzine Hcl 25 Mg Tablet) 25 mg PO Q6H PRN PRN Reason: Anxiety Last Admin: 04/03/24 07:15 Dose: 25 mg Lactase (Lactase Tablet) 1 tab PO QIDWMHS [facility] Last Admin: 04/03/24 21:47 Dose: 1 tab Lamotrigine (Lamotrigine 100 Mg Tablet) 200 mg PO BEDTIME [facility] Last Admin: 04/03/24 21:48 Dose: 200 mg [place] Carbonate ([place] Carbonate Er 300 Mg Tablet.Er) 600 mg PO BEDTIME PAULA Last Admin: 04/03/24 22:30 Dose: 600 mg Magnesium Hydroxide (Milk Of Magnesia 30 Ml Oral.Susp) 30 ml PO DAILY PRN PRN Reason: Constipation Melatonin (Melatonin 3 Mg Tablet) 9 mg PO BEDTIME PRN PRN Reason: for insomnia Last Admin: 03/31/24 00:22 Dose: 9 mg Nicotine (Nicotine 21 Mg Patch.Td24) 21 mg TRANSDERMA DAILY PRN PRN Reason: smoking cessation Last Admin: 04/03/24 08:32 Dose: 21 mg Nicotine Polacrilex (Nicotine Polacrilex Lozenge 4 Mg Lozenge) 4 mg BUCCAL Q2H PRN PRN Reason: Nicotine Cravings Last Admin: 04/03/24 20:06 Dose: 4 mg Olanzapine (Olanzapine 5 Mg Tablet) 5 mg PO TID PRN PRN Reason: agitation/hypomania Last Admin: 04/03/24 22:42 Dose: 5 mg Olanzapine (Olanzapine 5 Mg Tablet) 5 mg PO BEDTIME PRN PRN Reason: Insomnia Allergies Allergies Allergy/AdvReac Type Severity Reaction Status Date / Time No Known Allergies Allergy Verified 03/29/24 14:41 [No Known Allergies*] Assessment & Plan Assessment & Plan (1) Bipolar I disorder: Status: Acute Code(s): F31.9 - Bipolar disorder, unspecified (2) Attention deficit hyperactivity disorder (ADHD): Status: Acute Code(s): F90.9 - Attention-deficit hyperactivity disorder, unspecified type (3) PTSD (post-traumatic stress disorder): Status: Acute Code(s): F43.10 - Post-traumatic stress disorder, unspecified Plan Patient is a 23-year-old male with history of bipolar type 2, PTSD, ADHD, recently discharged from on 03/23/24 who self-presents for continued Rhina, PTSD symptoms, AH. Patient reports that after he left hospital he went to [facility] homeless detention but got lost in [him]self... 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 Patient said he started getting dizzy, hypomanic and was not eating or drinking. He then got a text from his stepmother that his sister had a seizure and patient is not sure what happened next, thinking he either panicked, lost consciousness but the room was spinning and he felt dizzy. Staff at a [facility] urged him to go to the emergency room; patient said he had hard time accepting their insistence because the right side of [his] brain felt abstract and it was hard to speak... However he did end up going to the emergency room. Endorsed intense flashbacks of trauma from the past. Patient endorsed paranoid thoughts given example that if he hurt keys jingle he thought maybe the lining caser were here for; not sure if he had auditory hallucinations, saying there were just actual sounds but that he misinterpreted them. No SI. Clinical reasons/formulation: Patient presents again with manic symptoms, enough to get him hospitalized for 2nd time in a week. Discussed interplay between PTSD triggering rhina and vice versa; Patient starting to come to the conclusion that his rhina needs a traditional mood stabilizer. He agrees to start lithium; advertising copywriter reviewed risks/side effects, including staying away from NSAIDs, to which he agrees Hospital course: 04/02 hypomanic; did not sleep last night; will take zyprexa qhs if can't sleep tonight. Agrees to increase lamictal 04/03 says he slept last pm- not clear he needed olanzapine- seems like it might benefit him - on higher lamotrigine, continues on lithium 600mg- no change meds today but will write for standing clonidine in ams- 04/04 took prn olanzapine , also got clonidine this am - tired/sleeping CTP Plan: CV Q 15 minute checks Continue lithium ER 600 mg q.h.s. -Labs ordered InCrease to Lamictal 200mg zyprexa prn qhs for insomnia Hold Focalin Hold fluoxetine DC Risperdal for now, hopefully monotherapy with lithium will be effective Patient educated on: medication risk/benefits Informed Consent: understands and further education needed Reason for continued inpatient stay Substantial Risk for: rapid decompensation Time Spent With Patient Time: Total time managing care of this patient today ____ minutes.
[2024-04-04] MEDS: Nicotine 21 MG PATCH.TD24 TRANSDERMA (15:47)
[2024-04-04] MEDS: Nicotine Polacrilex Lozenge 4 MG LOZENGE BUCCAL ×4 (15:47→22:56)
[2024-04-04] MEDS: Lactase TABLET 1 TAB PO ×2 (17:42→21:23)
[2024-04-04 19:53] VITALS: BP 137/62; PULSE 88; RESP 15; TEMP 36.4; O2SAT 100
[2024-04-04] MEDS: Lithium Carbonate ER 300 MG TABLET.ER 600 MG PO (22:56)
[2024-04-04] MEDS: OLANZapine 5 MG TABLET PO (22:57)
[2024-04-04] MEDS: lamoTRIgine 100 MG TABLET 200 MG PO (22:57)
[2024-04-04] MEDS: guanFACINE HCl ER 1 MG TAB.ER.24H PO (22:57)
[2024-04-05] MEDS: cloNIDine HCL 0.1 MG TABLET PO ×2 (00:35→21:52)
[2024-04-05] MEDS: Melatonin 3 MG TABLET 9 MG PO ×2 (00:38→21:54)
[2024-04-05 08:00] VITALS: BP 109/56; PULSE 76; TEMP 36.1; O2SAT 98
[2024-04-05] MEDS: Lactase TABLET 1 TAB PO ×4 (08:38→21:53)
--- NOTE | 2024-04-05 08:58 | P.PNPSI_ITS ---
Subjective Subjective Date of Service: 04/05/24 Reason For Visit: Hypomanic Interim History: Met with patient; discussed with team; reviewed chart pt manic, hyperverbal; reports he's very anxious and getting depressed. Says mood is worsening as ADHD symptoms out of control. Discussed medications; agrees to hold off making most changes until [place] level available. Mental Status Exam Mental Status Exam Narrative: Pt is alert and oriented; behavior is hypomanic, cooperative; patient is not in distress; dressed in casual attire with unkempt hair but adequate hygiene; mood is described as anxious...depressed and affect congruent; eye contact appropriate; Speech is verbose and mild to moderately pressured; some psychomotor agitation present; thought process is circumstantial and distracted, can be goal oriented; Thought content is on recent events, PTSD, tx; no delusional content expressed; denies any SI/HI. No AVH; Patients insight and judgment impaired but improving Diagnostics Vital Signs (24Hr): Vital Signs - 24 hr 04/04/24 19:53 04/05/24 08:00 Temperature 97.6 F 96.9 F Pulse Rate 88 76 Respiratory Rate 15 Blood Pressure 137/62 109/56 L Pulse Oximetry 100 98 Oxygen Delivery Method Room Air BMI result Body Mass Index 23.6 Labs 03/29/24 16:19 03/29/24 16:19 Medications Medications Current Medications Acetaminophen (Acetaminophen 325 Mg Tablet) 1,000 mg PO Q8H PRN PRN Reason: Headache/Pain Mild Scale (1-3) Last Admin: 04/03/24 15:12 Dose: 1,000 mg Al Hydroxide/Mg Hydroxide (Magnesium Hydrox/Alum Hydrox 30 Ml Oral.Susp) 30 ml PO Q6H PRN PRN Reason: Heartburn/Nausea Last Admin: 04/03/24 01:25 Dose: 30 ml Clonidine HCl (Clonidine Hcl 0.1 Mg Tablet) 0.1 mg PO Q4H PRN; Protocol PRN Reason: anxiety/insomnia Last Admin: 04/05/24 00:35 Dose: 0.1 mg Clonidine HCl (Clonidine Hcl 0.1 Mg Tablet) 0.1 mg PO DAILY [facility]; Protocol Last Admin: 04/05/24 08:38 Dose: Not Given Fluoxetine HCl (Fluoxetine Hcl 20 Mg Capsule) 40 mg PO DAILY [facility] Last Admin: 04/02/24 10:32 Dose: Not Given Guanfacine HCl (Guanfacine Hcl Er 1 Mg Tab.Er.24h) 1 mg PO BEDTIME [facility] Last Admin: 04/04/24 22:57 Dose: 1 mg Hydroxyzine HCl (Hydroxyzine Hcl 25 Mg Tablet) 25 mg PO Q6H PRN PRN Reason: Anxiety Last Admin: 04/03/24 07:15 Dose: 25 mg Lactase (Lactase Tablet) 1 tab PO QIDWMHS [facility] Last Admin: 04/05/24 08:38 Dose: 1 tab Lamotrigine (Lamotrigine 100 Mg Tablet) 200 mg PO BEDTIME PAULA Last Admin: 04/04/24 22:57 Dose: 200 mg [place] Carbonate ([place] Carbonate Er 300 Mg Tablet.Er) 600 mg PO BEDTIME [facility] Last Admin: 04/04/24 22:56 Dose: 600 mg Magnesium Hydroxide (Milk Of Magnesia 30 Ml Oral.Susp) 30 ml PO DAILY PRN PRN Reason: Constipation Melatonin (Melatonin 3 Mg Tablet) 9 mg PO BEDTIME PRN PRN Reason: for insomnia Last Admin: 04/05/24 00:38 Dose: 9 mg Nicotine (Nicotine 21 Mg Patch.Td24) 21 mg TRANSDERMA DAILY PRN PRN Reason: smoking cessation Last Admin: 04/04/24 15:47 Dose: 21 mg Nicotine Polacrilex (Nicotine Polacrilex Lozenge 4 Mg Lozenge) 4 mg BUCCAL Q2H PRN PRN Reason: Nicotine Cravings Last Admin: 04/04/24 22:56 Dose: 4 mg Olanzapine (Olanzapine 5 Mg Tablet) 5 mg PO TID PRN PRN Reason: agitation/hypomania Last Admin: 04/04/24 22:57 Dose: 5 mg Olanzapine (Olanzapine 5 Mg Tablet) 5 mg PO BEDTIME PRN PRN Reason: Insomnia Allergies Allergies Allergy/AdvReac Type Severity Reaction Status Date / Time No Known Allergies Allergy Verified 03/29/24 14:41 [No Known Allergies*] Assessment & Plan Assessment & Plan (1) Bipolar I disorder: Status: Acute Code(s): F31.9 - Bipolar disorder, unspecified (2) Attention deficit hyperactivity disorder (ADHD): Status: Acute Code(s): F90.9 - Attention-deficit hyperactivity disorder, unspecified type (3) PTSD (post-traumatic stress disorder): Status: Acute Code(s): F43.10 - Post-traumatic stress disorder, unspecified Plan Patient is a 23-year-old male with history of bipolar type 2, PTSD, ADHD, recently discharged from on 03/23/24 who self-presents for continued Rhina, PTSD symptoms, AH. Patient reports that after he left hospital he went to [facility] [place] [facility] but got lost in [him]self... 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 Patient said he started getting dizzy, hypomanic and was not eating or drinking. He then got a text from his stepmother that his sister had a seizure and patient is not sure what happened next, thinking he either panicked, lost consciousness but the room was spinning and he felt dizzy. Staff [facility] urged [facility] to go to the emergency room; patient said he had hard time accepting their insistence because the right side of [his] brain felt abstract and it was hard to speak... However he did end up going to the emergency room. Endorsed intense flashbacks of trauma from the past. Patient endorsed paranoid thoughts given example that if he hurt keys jingle he thought maybe the manager mechanical maintenance were here for; not sure if he had auditory hallucinations, saying there were just actual sounds but that he misinterpreted them. No SI. Clinical reasons/formulation: Patient presents again with manic symptoms, enough to get him hospitalized for 2nd time in a week. Discussed interplay between PTSD triggering rhina and vice versa; Patient starting to come to the conclusion that his rhina needs a traditional mood stabilizer. He agrees to start lithium; food writer reviewed risks/side effects, including staying away from NSAIDs, to which he agrees Hospital course: 04/02 hypomanic; did not sleep last night; will take zyprexa qhs if can't sleep tonight. Agrees to increase lamictal 04/03 says he slept last pm- not clear he needed olanzapine- seems like it might benefit him - on higher lamotrigine, continues on lithium 600mg- no change meds today but will write for standing clonidine in ams- 04/04 took prn olanzapine , also got clonidine this am - tired/sleeping CTP 04/03 clonidine really helpful for am anxiety wants to take it every am- not just prn- took x last 3 days asking about short acting antidepressants since prozac is being held- told him we usually treated bipolar with atypical antipsychotics or mood stabilizers and that helps the depressio 04/04 lying in bed exhausted says he took prn olanzapine last pm but doesn't want it decreased- also pointed out to patient I added standing clonidine this am and that could also sedate him, though I moved guanfacine to hs- maybe just be coming down from hypomania which was all day yesterday and stayed up late playing cards with peers 04/05 hypomanic; waiting on lithium labs Plan: CV Q 15 minute checks Continue lithium ER 600 mg q.h.s. -Labs ordered InCrease to Lamictal 200mg zyprexa prn qhs for insomnia Intuniv 2mg qhs for insomnia Hold Focalin Hold fluoxetine DC Risperdal for now, hopefully monotherapy with lithium will be effective Patient educated on: diagnosis, medication risk/benefits and therapeutic strategies Informed Consent: understands and further education needed Reason for continued inpatient stay Substantial Risk for: rapid decompensation Time Spent With Patient Time: Total time managing care of this patient today ____ minutes.
[2024-04-05] MEDS: Nicotine Polacrilex Lozenge 4 MG LOZENGE BUCCAL ×5 (11:31→22:58)
[2024-04-05] MEDS: Nicotine 21 MG PATCH.TD24 TRANSDERMA (11:31)
[2024-04-05] MEDS: Acetaminophen 325 MG TABLET 1000 MG PO (12:44)
[2024-04-05] MEDS: Milk of Magnesia 30 ML ORAL.SUSP PO (16:47)
[2024-04-05 20:00] VITALS: BP 127/60; PULSE 98; RESP 18; TEMP 36.3; O2SAT 100
[2024-04-05] MEDS: lamoTRIgine 100 MG TABLET 200 MG PO (21:52)
[2024-04-05] MEDS: guanFACINE HCl ER 2 MG TAB.ER.24H PO (21:54)
[2024-04-05] MEDS: Lithium Carbonate ER 300 MG TABLET.ER 600 MG PO (22:06)
[2024-04-06 08:07] VITALS: BP 103/55; PULSE 69; RESP 16; TEMP 36.4; O2SAT 100
[2024-04-06 08:28] VITALS: BP 117/55
[2024-04-06 08:29] LABS: Lithium 0.48 mmol/L (0.60-1.20)
[2024-04-06 08:42] LABS: Blood Urea Nitrogen 14 mg/dL (9-16); Creatinine Clr Calc Pharmacy 124.8; Estimated Glomerular Filt Rate > 60
[2024-04-06] MEDS: Nicotine 21 MG PATCH.TD24 TRANSDERMA (08:43)
[2024-04-06] MEDS: cloNIDine HCL 0.1 MG TABLET PO ×3 (08:43→23:25)
[2024-04-06] MEDS: Lactase TABLET 1 TAB PO ×4 (08:43→20:26)
[2024-04-06 08:58] LABS: TSH reflex Free T4 3.23 uIU/mL (0.32-4.0)
[2024-04-06] MEDS: Nicotine Polacrilex Lozenge 4 MG LOZENGE BUCCAL ×5 (09:04→21:11)
--- NOTE | 2024-04-06 09:34 | HO.PSYCHPN ---
Subjective Subjective Date of Service: 04/06/24 Reason For Visit: Hypomanic Interim History: met with patient; discussed with team Patient still manic with mixed state; discussed lithium level and patient agrees to increase dose to achieve therapeutic level. Remains with pressured speech, circumstantial and excessive. 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 Patient gives verbal permission to discussed case with outpatient PCP and stepmother Therapeutic Recreation Assistant called to discuss case with outpatient provider Russel; unable to connect and global technical writer will try again Will place call out to patient's stepmother with whom he is close Mental Status Exam Mental Status Exam Narrative: Pt is alert and oriented; behavior is hypomanic, though remains cooperative; patient is not in distress; dressed in casual attire with adequate hygiene; mood is described as anxious...depressed and affect congruent; eye contact appropriate; Speech is verbose and moderately pressured; [id number] bilateral hand tremor (possibly medication induced) some psychomotor agitation present; thought process is circumstantial and distracted, can be goal oriented; Thought content is with some grandiosity; also on treatment, aftercare PTSD; no delusional content expressed; denies any SI/HI. No AVH; Patients insight and judgment impaired Diagnostics Vital Signs (24Hr): Vital Signs - 24 hr 04/05/24 20:00 04/06/24 08:07 04/06/24 08:28 Temperature 97.3 F 97.6 F Pulse Rate 98 69 Respiratory Rate 18 16 Blood Pressure 127/60 103/55 L 117/55 L Pulse Oximetry 100 100 Oxygen Delivery Method Room Air Room Air BMI result Body Mass Index 23.6 Labs 03/29/24 16:19 04/06/24 08:03 Labs: Laboratory Results - last 48 hr 04/06/24 08:03 BUN 14 Creatinine 0.86 Estim Creat Clear Calc 124.8 Estimated GFR > 60 TSH 3.23 [place] 0.48 L Medications Medications Current Medications Acetaminophen (Acetaminophen 325 Mg Tablet) 1,000 mg PO Q8H PRN PRN Reason: Headache/Pain Mild Scale (1-3) Last Admin: 04/05/24 12:44 Dose: 975 mg Al Hydroxide/Mg Hydroxide (Magnesium Hydrox/Alum Hydrox 30 Ml Oral.Susp) 30 ml PO Q6H PRN PRN Reason: Heartburn/Nausea Last Admin: 04/03/24 01:25 Dose: 30 ml Clonidine HCl (Clonidine Hcl 0.1 Mg Tablet) 0.1 mg PO Q4H PRN; Protocol PRN Reason: anxiety/insomnia Last Admin: 04/06/24 08:43 Dose: 0.1 mg Fluoxetine HCl (Fluoxetine Hcl 20 Mg Capsule) 40 mg PO DAILY [facility] Last Admin: 04/02/24 10:32 Dose: Not Given Guanfacine HCl (Guanfacine Hcl Er 2 Mg Tab.Er.24h) 2 mg PO BEDTIME [facility] Last Admin: 04/05/24 21:54 Dose: 2 mg Hydroxyzine HCl (Hydroxyzine Hcl 25 Mg Tablet) 25 mg PO Q6H PRN PRN Reason: Anxiety Last Admin: 04/03/24 07:15 Dose: 25 mg Lactase (Lactase Tablet) 1 tab PO QIDWMHS [facility] Last Admin: 04/06/24 08:43 Dose: 1 tab Lamotrigine (Lamotrigine 100 Mg Tablet) 200 mg PO BEDTIME [facility]UL[facility] Last Admin: 04/05/24 21:52 Dose: 200 mg [place] Carbonate ([place] Carbonate Er 300 Mg Tablet.Er) 600 mg PO BEDTIME PAULA Last Admin: 04/05/24 22:06 Dose: 600 mg Magnesium Hydroxide (Milk Of Magnesia 30 Ml Oral.Susp) 30 ml PO DAILY PRN PRN Reason: Constipation Last Admin: 04/05/24 16:47 Dose: 30 ml Melatonin (Melatonin 3 Mg Tablet) 9 mg PO BEDTIME PRN PRN Reason: for insomnia Last Admin: 04/05/24 21:54 Dose: 9 mg Nicotine (Nicotine 21 Mg Patch.Td24) 21 mg TRANSDERMA DAILY PRN PRN Reason: smoking cessation Last Admin: 04/06/24 08:43 Dose: 21 mg Nicotine Polacrilex (Nicotine Polacrilex Lozenge 4 Mg Lozenge) 4 mg BUCCAL Q2H PRN PRN Reason: Nicotine Cravings Last Admin: 04/06/24 09:04 Dose: 4 mg Olanzapine (Olanzapine 5 Mg Tablet) 5 mg PO TID PRN PRN Reason: agitation/hypomania Last Admin: 04/04/24 22:57 Dose: 5 mg Olanzapine (Olanzapine 5 Mg Tablet) 5 mg PO BEDTIME PRN PRN Reason: Insomnia Allergies Allergies Allergy/AdvReac Type Severity Reaction Status Date / Time No Known Allergies Allergy Verified 03/29/24 14:41 [No Known Allergies*] Assessment & Plan Assessment & Plan (1) Bipolar I disorder: Status: Acute Code(s): F31.9 - Bipolar disorder, unspecified (2) Attention deficit hyperactivity disorder (ADHD): Status: Acute Code(s): F90.9 - Attention-deficit hyperactivity disorder, unspecified type (3) PTSD (post-traumatic stress disorder): Status: Acute Code(s): F43.10 - Post-traumatic stress disorder, unspecified Plan Patient is a 23-year-old male with history of bipolar type 2, PTSD, ADHD, recently discharged from on 03/23/24 who self-presents for continued Rhina, PTSD symptoms, AH. Patient reports that after he left hospital he went to [facility] homeless assisted but got lost in [him]self... 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 Patient said he started getting dizzy, hypomanic and was not eating or drinking. He then got a text from his stepmother that his sister had a seizure and patient is not sure what happened next, thinking he either panicked, lost consciousness but the room was spinning and he felt dizzy. Staff at [facility] urged him to go to the emergency room; patient said he had hard time accepting their insistence because the right side of [his] brain felt abstract and it was hard to speak... However he did end up going to the emergency room. Endorsed intense flashbacks of trauma from the past. Patient endorsed paranoid thoughts given example that if he hurt keys jingle he thought maybe the salicylic acid blender were here for; not sure if he had auditory hallucinations, saying there were just actual sounds but that he misinterpreted them. No SI. Clinical reasons/formulation: Patient presents again with manic symptoms, enough to get him hospitalized for 2nd time in a week. Discussed interplay between PTSD triggering hrina and vice versa; Patient starting to come to the conclusion that his rhina needs a traditional mood stabilizer. He agrees to start lithium; global technical writer reviewed risks/side effects, including staying away from NSAIDs, to which he agrees Hospital course: 04/02 hypomanic; did not sleep last night; will take zyprexa qhs if can't sleep tonight. Agrees to increase lamictal 04/03 says he slept last pm- not clear he needed olanzapine- seems like it might benefit him - on higher lamotrigine, continues on lithium 600mg- no change meds today but will write for standing clonidine in ams- 04/04 took prn olanzapine , also got clonidine this am - tired/sleeping CTP 04/03 clonidine really helpful for am anxiety wants to take it every am- not just prn- took x last 3 days asking about short acting antidepressants since prozac is being held- told him we usually treated bipolar with atypical antipsychotics or mood stabilizers and that helps the depressio 04/04 lying in bed exhausted says he took prn olanzapine last pm but doesn't want it decreased- also pointed out to patient I added standing clonidine this am and that could also sedate him, though I moved guanfacine to hs- maybe just be coming down from hypomania which was all day yesterday and stayed up late playing cards with peers 04/05 hypomanic; waiting on lithium labs 04/06 Patient still manic with mixed state; discussed lithium level and patient agrees to increase dose to achieve therapeutic level. Remains with pressured speech, circumstantial and excessive. 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 Patient gives verbal permission to discussed case with outpatient PCP and stepmother Therapeutic Recreation Assistant called to discuss case with outpatient provider Russel; unable to connect and global technical writer will try again Will place call out to patient's stepmother with whom he is close -patient not appropriate for outpatient care and would otherwise quickly decompensate and very likely be rehospitalized; rather patient needs to remain on unit for further medication management, titration of lithium and for lab work to demonstrate that he can tolerate increased dose; patient does have slight bilateral hand tremor which he shows global technical writer and maybe due to lithium; this was discussed with patient and he is currently amenable to continuing and further titrating lithium, hopeful that it can work -increase lithium to 900 mg Plan: 3 day Q 15 minute checks Increase to lithium ER 900 mg q.h.s. -Labs ordered Continue Lamictal 200mg zyprexa prn qhs for insomnia Intuniv 2mg qhs for insomnia restarted Focalin (pt feels he is very depressed without; restarting (though at lower dose) hoping it won't interfere with manic symptoms and as patient feels it's necessary if he's going to increase lithium dose); it is also possible that there could be an additive effect with lithium that could be producing hand tremor (which could conversely be due to anxiety), however at this point global technical writer considers risk low and worth it given patient's willingness to increase lithium dose Hold fluoxetine DC Risperdal for now, hopefully monotherapy with lithium will be effective Patient educated on: diagnosis and medication risk/benefits Informed Consent: understands, does not understand and further education needed Reason for continued inpatient stay Substantial Risk for: rapid decompensation Time Spent With Patient Time: Total time managing care of this patient today ____ minutes.
--- NOTE | 2024-04-06 12:37 | PC.NURSE ---
called pharmacy twice to have Ryan brought up fro pt own medcations and was told we are working on it . Will continue to follow up
--- NOTE | 2024-04-06 13:29 | PC.NURSE ---
pt reports he accidentally swallowed his nicotine lozenge. Provider notified via tiger text.
[2024-04-06 14:29] VITALS: BP 135/78
[2024-04-06 20:00] VITALS: BP 115/60; PULSE 83; TEMP 36.7; O2SAT 98
[2024-04-06] MEDS: lamoTRIgine 100 MG TABLET 200 MG PO (20:26)
[2024-04-06] MEDS: guanFACINE HCl ER 2 MG TAB.ER.24H PO (20:26)
[2024-04-06] MEDS: Lithium Carbonate ER 450 MG TABLET.ER 900 MG PO (21:11)
[2024-04-06] MEDS: Melatonin 3 MG TABLET 9 MG PO (22:06)
[2024-04-06 23:25] VITALS: BP 133/68
[2024-04-07 08:00] VITALS: BP 96/57; PULSE 73; RESP 16; TEMP 36.4; O2SAT 99
[2024-04-07] MEDS: Lactase TABLET 1 TAB PO ×4 (08:22→23:18)
[2024-04-07] MEDS: Nicotine 21 MG PATCH.TD24 TRANSDERMA (08:22)
[2024-04-07] MEDS: Lithium Carbonate ER 450 MG TABLET.ER 900 MG PO (11:30)
[2024-04-07 14:05] VITALS: BP 139/66
[2024-04-07] MEDS: cloNIDine HCL 0.1 MG TABLET PO (14:05)
[2024-04-07] MEDS: Nicotine Polacrilex Lozenge 4 MG LOZENGE BUCCAL ×2 (17:05→23:17)
--- NOTE | 2024-04-07 18:50 | P.PNPSI_ITS ---
Subjective Subjective Date of Service: 04/07/24 Reason For Visit: Hypomanic Interim History: Met with patient; discussed with team Patient remains manic, initially wanting to discharge today as his 3 day notice is due, so that he could go to apply for job on [employer]. Also wants laptop to prepare for school that he wants to enroll in this fall. Patient however willing to do some reality testing. Patient later came to health underwriter and said he agreed to retract 3 day and stay on the unit as he realized he is not ready to discharge, that he remains way too impulsive and will just end up back in the hospital if he is not further stabilized. 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 Mental Status Exam Mental Status Exam Narrative: Pt is alert and oriented; behavior is hypomanic, though remains cooperative; patient is not in distress; dressed in casual attire with adequate hygiene; mood is described as anxious...depressed and affect congruent; eye contact appropriate; Speech is verbose and moderately pressured; [id number] bilateral hand tremor (possibly medication induced) some psychomotor agitation present; thought process is circumstantial and distracted, can be goal oriented; Thought content is with some grandiosity; also on treatment, aftercare PTSD; no delusional content expressed; denies any SI/HI. No AVH; Patients insight and judgment impaired Diagnostics Vital Signs (24Hr): Vital Signs - 24 hr 04/06/24 20:00 04/06/24 23:25 04/07/24 08:00 Temperature 98.1 F 97.5 F Pulse Rate 83 73 Respiratory Rate 16 Blood Pressure 115/60 133/68 96/57 L Pulse Oximetry 98 99 Oxygen Delivery Method Room Air Room Air 04/07/24 14:05 Temperature Pulse Rate Respiratory Rate Blood Pressure 139/66 Pulse Oximetry Oxygen Delivery Method BMI result Body Mass Index 23.6 Labs 03/29/24 16:19 04/06/24 08:03 Labs: Laboratory Results - last 48 hr 04/06/24 08:03 BUN 14 Creatinine 0.86 Estim Creat Clear Calc 124.8 Estimated GFR > 60 TSH 3.23 [place] 0.48 L Medications Medications Current Medications Acetaminophen (Acetaminophen 325 Mg Tablet) 1,000 mg PO Q8H PRN PRN Reason: Headache/Pain Mild Scale (1-3) Last Admin: 04/05/24 12:44 Dose: 975 mg Al Hydroxide/Mg Hydroxide (Magnesium Hydrox/Alum Hydrox 30 Ml Oral.Susp) 30 ml PO Q6H PRN PRN Reason: Heartburn/Nausea Last Admin: 04/03/24 01:25 Dose: 30 ml Clonidine HCl (Clonidine Hcl 0.1 Mg Tablet) 0.1 mg PO Q4H PRN; Protocol PRN Reason: anxiety/insomnia Last Admin: 04/07/24 14:05 Dose: 0.1 mg Fluoxetine HCl (Fluoxetine Hcl 20 Mg Capsule) 40 mg PO DAILY PAULA Last Admin: 04/02/24 10:32 Dose: Not Given Guanfacine HCl (Guanfacine Hcl Er 2 Mg Tab.Er.24h) 2 mg PO BEDTIME [facility] Last Admin: 04/06/24 20:26 Dose: 2 mg Hydroxyzine HCl (Hydroxyzine Hcl 25 Mg Tablet) 25 mg PO Q6H PRN PRN Reason: Anxiety Last Admin: 04/03/24 07:15 Dose: 25 mg Lactase (Lactase Tablet) 1 tab PO QIDWMHS PAULA Last Admin: 04/07/24 17:05 Dose: 1 tab Lamotrigine (Lamotrigine 100 Mg Tablet) 200 mg PO BEDTIME [facility] Last Admin: 04/06/24 20:26 Dose: 200 mg [place] Carbonate ([place] Carbonate Er 450 Mg Tablet.Er) 900 mg PO BEDTIME PAULA Last Admin: 04/06/24 21:11 Dose: 900 mg Magnesium Hydroxide (Milk Of Magnesia 30 Ml Oral.Susp) 30 ml PO DAILY PRN PRN Reason: Constipation Last Admin: 04/05/24 16:47 Dose: 30 ml Melatonin (Melatonin 3 Mg Tablet) 9 mg PO BEDTIME PRN PRN Reason: for insomnia Last Admin: 04/06/24 22:06 Dose: 9 mg Nicotine (Nicotine 21 Mg Patch.Td24) 21 mg TRANSDERMA DAILY PRN PRN Reason: smoking cessation Last Admin: 04/07/24 08:22 Dose: 21 mg Nicotine Polacrilex (Nicotine Polacrilex Lozenge 4 Mg Lozenge) 4 mg BUCCAL Q2H PRN PRN Reason: Nicotine Cravings Last Admin: 04/07/24 17:05 Dose: 4 mg Pt Own (Focalin 10mg ()) 1 each PO BID@0900,1300 [facility]UL[facility] Last Admin: 04/07/24 13:16 Dose: 1 each Olanzapine (Olanzapine 5 Mg Tablet) 5 mg PO TID PRN PRN Reason: agitation/hypomania Last Admin: 04/04/24 22:57 Dose: 5 mg Olanzapine (Olanzapine 5 Mg Tablet) 5 mg PO BEDTIME PRN PRN Reason: Insomnia Allergies Allergies Allergy/AdvReac Type Severity Reaction Status Date / Time No Known Allergies Allergy Verified 03/29/24 14:41 [No Known Allergies*] Assessment & Plan Assessment & Plan (1) Bipolar I disorder: Status: Acute Code(s): F31.9 - Bipolar disorder, unspecified (2) Attention deficit hyperactivity disorder (ADHD): Status: Acute Code(s): F90.9 - Attention-deficit hyperactivity disorder, unspecified type (3) PTSD (post-traumatic stress disorder): Status: Acute Code(s): F43.10 - Post-traumatic stress disorder, unspecified Plan Patient is a 23-year-old male with history of bipolar type 2, PTSD, ADHD, recently discharged from on 03/23/24 who self-presents for continued Rhina, PTSD symptoms, AH. Patient reports that after he left hospital he went to [facility] homeless jail but got lost in [him]self... 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 Patient said he started getting dizzy, hypomanic and was not eating or drinking. He then got a text from his stepmother that his sister had a seizure and patient is not sure what happened next, thinking he either panicked, lost consciousness but the room was spinning and he felt dizzy. [facility] urged [facility] to go to the [facility] room; patient said he had hard time accepting their insistence because the right side of [his] brain felt abstract and it was hard to speak... However he did end up going to the emergency room. Endorsed intense flashbacks of trauma from the past. Patient endorsed paranoid thoughts given example that if he hurt keys jingle he thought maybe the machine marker were here for; not sure if he had auditory hallucinations, saying there were just actual sounds but that he misinterpreted them. No SI. Clinical reasons/formulation: Patient presents again with manic symptoms, enough to get him hospitalized for 2nd time in a week. Discussed interplay between PTSD triggering rhina and vice versa; Patient starting to come to the conclusion that his rhina needs a traditional mood stabilizer. He agrees to start lithium; health underwriter reviewed risks/side effects, including staying away from NSAIDs, to which he agrees Hospital course: 04/02 hypomanic; did not sleep last night; will take zyprexa qhs if can't sleep tonight. Agrees to increase lamictal 04/03 says he slept last pm- not clear he needed olanzapine- seems like it might benefit him - on higher lamotrigine, continues on lithium 600mg- no change meds today but will write for standing clonidine in ams- 04/04 took prn olanzapine , also got clonidine this am - tired/sleeping CTP 04/03 clonidine really helpful for am anxiety wants to take it every am- not just prn- took x last 3 days asking about short acting antidepressants since prozac is being held- told him we usually treated bipolar with atypical antipsychotics or mood stabilizers and that helps the depressio 04/04 lying in bed exhausted says he took prn olanzapine last pm but doesn't want it decreased- also pointed out to patient I added standing clonidine this am and that could also sedate him, though I moved guanfacine to hs- maybe just be coming down from hypomania which was all day yesterday and stayed up late playing cards with peers 04/05 hypomanic; waiting on lithium labs 04/06 Patient still manic with mixed state; discussed lithium level and patient agrees to increase dose to achieve therapeutic level. Remains with pressured speech, circumstantial and excessive. 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 Patient gives verbal permission to discussed case with outpatient PCP and stepmother Iron Cutter called to discuss case with outpatient provider Russel; unable to connect and health underwriter will try again Will place call out to patient's stepmother with whom he is close -increase lithium to 900 mg 04/07 Patient remains manic, initially wanting to discharge today as his 3 day notice is due, so that he could go to apply for job on [employer]. Also wants laptop to prepare for school that he wants to enroll in this fall. Patient however willing to do some reality testing. Patient later came to health underwriter and said he agreed to retract 3 day and stay on the unit as he realized he is not ready to discharge, that he remains way too impulsive and will just end up back in the hospital if he is not further stabilized. 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 -patient not appropriate for outpatient care and would otherwise quickly decompensate and very likely be rehospitalized; rather patient needs to remain on unit for further medication management, titration of lithium and for lab work to demonstrate that he can tolerate increased dose; patient does have slight bilateral hand tremor which he shows health underwriter and maybe due to lithium; this was discussed with patient and he is currently amenable to continuing and further titrating lithium, hopeful that it can work Plan: CV Q 15 minute checks Increased to lithium ER 900 mg q.h.s. -Labs ordered Continue Lamictal 200mg zyprexa prn qhs for insomnia Intuniv 2mg qhs for insomnia restarted Focalin (pt feels he is very depressed without; restarting (though at lower dose) hoping it won't interfere with manic symptoms and as patient feels it's necessary if he's going to increase lithium dose); it is also possible that there could be an additive effect with lithium that could be producing hand tremor (which could conversely be due to anxiety), however at this point health underwriter considers risk low and worth it given patient's willingness to increase lithium dose Hold fluoxetine DC Risperdal for now, hopefully monotherapy with lithium will be effective Patient educated on: diagnosis, medication risk/benefits and therapeutic strategies Informed Consent: understands and further education needed Reason for continued inpatient stay Substantial Risk for: rapid decompensation and med/psych decompensation Time Spent With Patient Time: Total time managing care of this patient today ____ minutes.
[2024-04-07 20:00] VITALS: BP 137/69; PULSE 99; TEMP 36.4; O2SAT 99
[2024-04-07] MEDS: lamoTRIgine 100 MG TABLET 200 MG PO (23:17)
[2024-04-07] MEDS: guanFACINE HCl ER 2 MG TAB.ER.24H PO (23:18)
[2024-04-07] MEDS: Melatonin 3 MG TABLET 9 MG PO (23:18)
[2024-04-07] MEDS: Acetaminophen 325 MG TABLET 1000 MG PO (23:21)
[2024-04-07 23:28] VITALS: BP 138/65
[2024-04-07] MEDS: OLANZapine 5 MG TABLET PO (23:51)
--- NOTE | 2024-04-08 03:38 | PC.NURSE ---
Patient observed sleeping at start of shift. Upon waking Eduardo reported, IT was an anxiety nap. Patient requested Tylenol for c/o headache which was administered with good effect.
[2024-04-08 07:00] VITALS: BMI 27.1
[2024-04-08 08:00] VITALS: BP 121/56; PULSE 81; RESP 16; TEMP 36.4; O2SAT 98
--- NOTE | 2024-04-08 11:19 | P.PNPSI_ITS ---
Subjective Subjective Date of Service: 04/08/24 Reason For Visit: Hypomanic Interim History: Met with patient; discussed with team Last night, manic, trouble sleeping, took Zyprexa. Patient then slept and has been tired all day. Mental Status Exam Mental Status Exam Narrative: Pt is alert and oriented; behavior is more tired today; patient is not in distress; dressed in casual attire with adequate hygiene; mood is described as ok and affect congruent; eye contact appropriate; Speech is a little verbose but less pressured; seems to be less hand tremor today (recently [id number] bilateral hand tremor (possibly medication induced)); no psychomotor agitation present; thought process is circumstantial and distracted, can be goal oriented; Thought content is mostly on treatment, aftercare, PTSD; no delusional content expressed; denies any SI/HI. No AVH; Patients insight and judgment impaired Diagnostics Vital Signs (24Hr): Vital Signs - 24 hr 04/07/24 14:05 04/07/24 20:00 04/07/24 23:28 Temperature 97.5 F Pulse Rate 99 Respiratory Rate Blood Pressure 139/66 137/69 138/65 Pulse Oximetry 99 Oxygen Delivery Method Room Air 04/08/24 08:00 Temperature 97.6 F Pulse Rate 81 Respiratory Rate 16 Blood Pressure 121/56 L Pulse Oximetry 98 Oxygen Delivery Method Room Air BMI result Body Mass Index 23.6 Labs 03/29/24 16:19 04/06/24 08:03 Medications Medications Current Medications Acetaminophen (Acetaminophen 325 Mg Tablet) 1,000 mg PO Q8H PRN PRN Reason: Headache/Pain Mild Scale (1-3) Last Admin: 04/07/24 23:21 Dose: 975 mg Al Hydroxide/Mg Hydroxide (Magnesium Hydrox/Alum Hydrox 30 Ml Oral.Susp) 30 ml PO Q6H PRN PRN Reason: Heartburn/Nausea Last Admin: 04/03/24 01:25 Dose: 30 ml Clonidine HCl (Clonidine Hcl 0.1 Mg Tablet) 0.1 mg PO Q4H PRN; Protocol PRN Reason: anxiety/insomnia Last Admin: 04/07/24 14:05 Dose: 0.1 mg Fluoxetine HCl (Fluoxetine Hcl 20 Mg Capsule) 40 mg PO DAILY PAULA Last Admin: 04/02/24 10:32 Dose: Not Given Guanfacine HCl (Guanfacine Hcl Er 2 Mg Tab.Er.24h) 2 mg PO BEDTIME [facility] Last Admin: 04/07/24 23:18 Dose: 2 mg Hydroxyzine HCl (Hydroxyzine Hcl 25 Mg Tablet) 25 mg PO Q6H PRN PRN Reason: Anxiety Last Admin: 04/03/24 07:15 Dose: 25 mg Lactase (Lactase Tablet) 1 tab PO QIDWMHS [facility] Last Admin: 04/08/24 09:54 Dose: Not Given Lamotrigine (Lamotrigine 100 Mg Tablet) 200 mg PO BEDTIME [facility] Last Admin: 04/07/24 23:17 Dose: 200 mg [place] Carbonate ([place] Carbonate Er 450 Mg Tablet.Er) 900 mg PO BEDTIME [facility] Last Admin: 04/07/24 11:30 Dose: 900 mg Magnesium Hydroxide (Milk Of Magnesia 30 Ml Oral.Susp) 30 ml PO DAILY PRN PRN Reason: Constipation Last Admin: 04/05/24 16:47 Dose: 30 ml Melatonin (Melatonin 3 Mg Tablet) 9 mg PO BEDTIME PRN PRN Reason: for insomnia Last Admin: 04/07/24 23:18 Dose: 9 mg Nicotine (Nicotine 21 Mg Patch.Td24) 21 mg TRANSDERMA DAILY PRN PRN Reason: smoking cessation Last Admin: 04/07/24 08:22 Dose: 21 mg Nicotine Polacrilex (Nicotine Polacrilex Lozenge 4 Mg Lozenge) 4 mg BUCCAL Q2H PRN PRN Reason: Nicotine Cravings Last Admin: 04/07/24 23:17 Dose: 4 mg Pt Own (Focalin 10mg ()) 1 each PO BID@0900,1300 [facility] Last Admin: 04/07/24 13:16 Dose: 1 each Olanzapine (Olanzapine 5 Mg Tablet) 5 mg PO TID PRN PRN Reason: agitation/hypomania Last Admin: 04/04/24 22:57 Dose: 5 mg Olanzapine (Olanzapine 5 Mg Tablet) 5 mg PO BEDTIME PRN PRN Reason: Insomnia Last Admin: 04/07/24 23:51 Dose: 5 mg Allergies Allergies Allergy/AdvReac Type Severity Reaction Status Date / Time No Known Allergies Allergy Verified 03/29/24 14:41 [No Known Allergies*] Assessment & Plan Assessment & Plan (1) Bipolar I disorder: Status: Acute Code(s): F31.9 - Bipolar disorder, unspecified (2) Attention deficit hyperactivity disorder (ADHD): Status: Acute Code(s): F90.9 - Attention-deficit hyperactivity disorder, unspecified type (3) PTSD (post-traumatic stress disorder): Status: Acute Code(s): F43.10 - Post-traumatic stress disorder, unspecified Plan Patient is a 23-year-old male with history of bipolar type 2, PTSD, ADHD, recently discharged from on 03/23/24 who self-presents for continued Rhina, PTSD symptoms, AH. Patient reports that after he left hospital he went to [facility] homeless alf but got lost in [him]self... 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 Patient said he started getting dizzy, hypomanic and was not eating or drinking. He then got a text from his stepmother that his sister had a seizure and patient is not sure what happened next, thinking he either panicked, lost consciousness but the room was spinning and he felt dizzy. Staff at a [facility] urged him to go to the emergency room; patient said he had hard time accepting their insistence because the right side of [his] brain felt abstract and it was hard to speak... However he did end up going to the emergency room. Endorsed intense flashbacks of trauma from the past. Patient endorsed paranoid thoughts given example that if he hurt keys jingle he thought maybe the freight associate were here for; not sure if he had auditory hallucinations, saying there were just actual sounds but that he misinterpreted them. No SI. Clinical reasons/formulation: Patient presents again with manic symptoms, enough to get him hospitalized for 2nd time in a week. Discussed interplay between PTSD triggering rhina and vice versa; Patient starting to come to the conclusion that his rhina needs a traditional mood stabilizer. He agrees to start lithium; database report writer reviewed risks/side effects, including staying away from NSAIDs, to which he agrees Hospital course: 04/02 hypomanic; did not sleep last night; will take zyprexa qhs if can't sleep tonight. Agrees to increase lamictal 04/03 says he slept last pm- not clear he needed olanzapine- seems like it might benefit him - on higher lamotrigine, continues on lithium 600mg- no change meds today but will write for standing clonidine in ams- 04/04 took prn olanzapine , also got clonidine this am - tired/sleeping CTP 04/03 clonidine really helpful for am anxiety wants to take it every am- not just prn- took x last 3 days asking about short acting antidepressants since prozac is being held- told him we usually treated bipolar with atypical antipsychotics or mood stabilizers and that helps the depressio 04/04 lying in bed exhausted says he took prn olanzapine last pm but doesn't want it decreased- also pointed out to patient I added standing clonidine this am and that could also sedate him, though I moved guanfacine to hs- maybe just be coming down from hypomania which was all day yesterday and stayed up late playing cards with peers 04/05 hypomanic; waiting on lithium labs 04/06 Patient still manic with mixed state; discussed lithium level and patient agrees to increase dose to achieve therapeutic level. Remains with pressured speech, circumstantial and excessive. 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 Patient gives verbal permission to discussed case with outpatient PCP and stepmother Lead Project Manager called to discuss case with outpatient provider Russel; unable to connect and database report writer will try again Will place call out to patient's stepmother with whom he is close -increase lithium to 900 mg 04/07 Patient remains manic, initially wanting to discharge today as his 3 day notice is due, so that he could go to apply for job on [employer]. Also wants laptop to prepare for school that he wants to enroll in this fall. Patient however willing to do some reality testing. Patient later came to database report writer and said he agreed to retract 3 day and stay on the unit as he realized he is not ready to discharge, that he remains way too impulsive and will just end up back in the hospital if he is not further stabilized. 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 -patient not appropriate for outpatient care and would otherwise quickly decompensate and very likely be rehospitalized; rather patient needs to remain on unit for further medication management, titration of lithium and for lab work to demonstrate that he can tolerate increased dose; patient does have slight bilateral hand tremor which he shows database report writer and maybe due to lithium; this was discussed with patient and he is currently amenable to continuing and further titrating lithium, hopeful that it can work 04/08 more subdued today after taking Zyprexa last night due to insomnia; continue current treatment plan Plan: CV Q 15 minute checks Increased to lithium ER 900 mg q.h.s. -Labs ordered Continue Lamictal 200mg zyprexa prn qhs for insomnia Intuniv 2mg qhs for insomnia restarted Focalin (pt feels he is very depressed without; restarting (though at lower dose) hoping it won't interfere with manic symptoms and as patient feels it's necessary if he's going to increase lithium dose); it is also possible that there could be an additive effect with lithium that could be producing hand tremor (which could conversely be due to anxiety), however at this point database report writer considers risk low and worth it given patient's willingness to increase lithium dose Hold fluoxetine DC Risperdal for now, hopefully monotherapy with lithium will be effective Patient educated on: diagnosis and medication risk/benefits Informed Consent: understands and further education needed Reason for continued inpatient stay Substantial Risk for: rapid decompensation Time Spent With Patient Time: Total time managing care of this patient today ____ minutes.
[2024-04-08] MEDS: Lactase TABLET 1 TAB PO ×3 (13:11→20:13)
[2024-04-08] MEDS: Nicotine Polacrilex Lozenge 4 MG LOZENGE BUCCAL ×2 (13:27→18:47)
[2024-04-08 13:50] VITALS: BP 147/81; PULSE 113
[2024-04-08] MEDS: cloNIDine HCL 0.1 MG TABLET PO ×2 (13:50→18:47)
[2024-04-08 18:47] VITALS: BP 132/70
[2024-04-08 20:00] VITALS: BP 123/58; PULSE 99; RESP 16; TEMP 36.9; O2SAT 96
[2024-04-08] MEDS: Lithium Carbonate ER 450 MG TABLET.ER 900 MG PO (20:13)
[2024-04-08] MEDS: guanFACINE HCl ER 2 MG TAB.ER.24H PO (20:13)
[2024-04-08] MEDS: lamoTRIgine 100 MG TABLET 200 MG PO (20:13)
[2024-04-09 02:42] VITALS: BP 106/56
[2024-04-09] MEDS: cloNIDine HCL 0.1 MG TABLET PO ×2 (02:42→18:53)
[2024-04-09] MEDS: Lactase TABLET 1 TAB PO ×4 (08:15→20:27)
[2024-04-09 08:19] VITALS: BP 108/53; PULSE 64; RESP 16; TEMP 36.4; O2SAT 98
--- NOTE | 2024-04-09 08:53 | HO.PSYCHPN ---
Subjective Subjective Date of Service: 04/09/24 Reason For Visit: Hypomanic Interim History: With patient; discussed with team Today more calm today. He said he had a lot of PTSD symptoms last night, flashbacks and felt a surge of anger, wanting to punch the wall. Patient asked about how he will eventually address his PTSD symptoms and understood that the hypomania was get in the way of able to process this history. Mental Status Exam Mental Status Exam Narrative: Pt is alert and oriented; behavior is more calm today; patient is not in distress; dressed in casual attire with adequate hygiene; mood is described as down and affect congruent; eye contact appropriate; Speech is a little verbose but not pressured; less hand tremor today (recently [id number] bilateral hand tremor (possibly medication induced)); no psychomotor agitation present; thought process is circumstantial and distracted, can be goal oriented; Thought content is mostly on treatment, aftercare, PTSD; no delusional content expressed; denies any SI/HI. No AVH; Patients insight and judgment impaired Diagnostics Vital Signs (24Hr): Vital Signs - 24 hr 04/08/24 13:50 04/08/24 13:50 04/08/24 18:47 Temperature Pulse Rate 113 H Respiratory Rate Blood Pressure 147/81 H 132/70 Pulse Oximetry Oxygen Delivery Method 04/08/24 20:00 04/09/24 02:42 04/09/24 08:19 Temperature 98.5 F 97.5 F Pulse Rate 99 64 Respiratory Rate 16 16 Blood Pressure 123/58 L 106/56 L 108/53 L Pulse Oximetry 96 98 Oxygen Delivery Method Room Air Room Air BMI result Body Mass Index 27.1 Labs 03/29/24 16:19 04/06/24 08:03 Medications Medications Current Medications Acetaminophen (Acetaminophen 325 Mg Tablet) 1,000 mg PO Q8H PRN PRN Reason: Headache/Pain Mild Scale (1-3) Last Admin: 04/07/24 23:21 Dose: 975 mg Al Hydroxide/Mg Hydroxide (Magnesium Hydrox/Alum Hydrox 30 Ml Oral.Susp) 30 ml PO Q6H PRN PRN Reason: Heartburn/Nausea Last Admin: 04/03/24 01:25 Dose: 30 ml Clonidine HCl (Clonidine Hcl 0.1 Mg Tablet) 0.1 mg PO Q4H PRN; Protocol PRN Reason: anxiety/insomnia Last Admin: 04/09/24 02:42 Dose: 0.1 mg Fluoxetine HCl (Fluoxetine Hcl 20 Mg Capsule) 40 mg PO DAILY [facility] Last Admin: 04/08/24 11:39 Dose: Not Given Guanfacine HCl (Guanfacine Hcl Er 2 Mg Tab.Er.24h) 2 mg PO BEDTIME [facility] Last Admin: 04/08/24 20:13 Dose: 2 mg Hydroxyzine HCl (Hydroxyzine Hcl 25 Mg Tablet) 25 mg PO Q6H PRN PRN Reason: Anxiety Last Admin: 04/03/24 07:15 Dose: 25 mg Lactase (Lactase Tablet) 1 tab PO QIDWMHS [facility] Last Admin: 04/09/24 08:15 Dose: 1 tab Lamotrigine (Lamotrigine 100 Mg Tablet) 200 mg PO BEDTIME [facility] Last Admin: 04/08/24 20:13 Dose: 200 mg [place] Carbonate ([place] Carbonate Er 450 Mg Tablet.Er) 900 mg PO BEDTIME [facility] Last Admin: 04/08/24 20:13 Dose: 900 mg Magnesium Hydroxide (Milk Of Magnesia 30 Ml Oral.Susp) 30 ml PO DAILY PRN PRN Reason: Constipation Last Admin: 04/05/24 16:47 Dose: 30 ml Melatonin (Melatonin 3 Mg Tablet) 9 mg PO BEDTIME PRN PRN Reason: for insomnia Last Admin: 04/07/24 23:18 Dose: 9 mg Nicotine (Nicotine 21 Mg Patch.Td24) 21 mg TRANSDERMA DAILY PRN PRN Reason: smoking cessation Last Admin: 04/07/24 08:22 Dose: 21 mg Nicotine Polacrilex (Nicotine Polacrilex Lozenge 4 Mg Lozenge) 4 mg BUCCAL Q2H PRN PRN Reason: Nicotine Cravings Last Admin: 04/08/24 18:47 Dose: 4 mg Pt Own (Focalin 10mg ()) 1 each PO BID@0900,1300 [facility] Last Admin: 04/09/24 08:14 Dose: 1 each Olanzapine (Olanzapine 5 Mg Tablet) 5 mg PO TID PRN PRN Reason: agitation/hypomania Last Admin: 04/04/24 22:57 Dose: 5 mg Olanzapine (Olanzapine 5 Mg Tablet) 5 mg PO BEDTIME PRN PRN Reason: Insomnia Last Admin: 04/07/24 23:51 Dose: 5 mg Allergies Allergies Allergy/AdvReac Type Severity Reaction Status Date / Time No Known Allergies Allergy Verified 03/29/24 14:41 [No Known Allergies*] Assessment & Plan Assessment & Plan (1) Bipolar I disorder: Status: Acute Code(s): F31.9 - Bipolar disorder, unspecified (2) Attention deficit hyperactivity disorder (ADHD): Status: Acute Code(s): F90.9 - Attention-deficit hyperactivity disorder, unspecified type (3) PTSD (post-traumatic stress disorder): Status: Acute Code(s): F43.10 - Post-traumatic stress disorder, unspecified Plan Patient is a 23-year-old male with history of bipolar type 2, PTSD, ADHD, recently discharged from on 03/23/24 who self-presents for continued Rhina, PTSD symptoms, AH. Patient reports that after he left hospital he went to [facility] homeless intermediate but got lost in [him]self... 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 Patient said he started getting dizzy, hypomanic and was not eating or drinking. He then got a text from his stepmother that his sister had a seizure and patient is not sure what happened next, thinking he either panicked, lost consciousness but the room was spinning and he felt dizzy. [facility] to go [facility] the [facility]; patient said he had hard time accepting their insistence because the right side of [his] brain felt abstract and it was hard to speak... However he did end up going to the emergency room. Endorsed intense flashbacks of trauma from the past. Patient endorsed paranoid thoughts given example that if he hurt keys jingle he thought maybe the host and hostess were here for; not sure if he had auditory hallucinations, saying there were just actual sounds but that he misinterpreted them. No SI. Clinical reasons/formulation: Patient presents again with manic symptoms, enough to get him hospitalized for 2nd time in a week. Discussed interplay between PTSD triggering rhina and vice versa; Patient starting to come to the conclusion that his rhina needs a traditional mood stabilizer. He agrees to start lithium; mortgage loan underwriter reviewed risks/side effects, including staying away from NSAIDs, to which he agrees Hospital course: 04/02 hypomanic; did not sleep last night; will take zyprexa qhs if can't sleep tonight. Agrees to increase lamictal 04/03 says he slept last pm- not clear he needed olanzapine- seems like it might benefit him - on higher lamotrigine, continues on lithium 600mg- no change meds today but will write for standing clonidine in ams- 04/04 took prn olanzapine , also got clonidine this am - tired/sleeping CTP 04/03 clonidine really helpful for am anxiety wants to take it every am- not just prn- took x last 3 days asking about short acting antidepressants since prozac is being held- told him we usually treated bipolar with atypical antipsychotics or mood stabilizers and that helps the depressio 04/04 lying in bed exhausted says he took prn olanzapine last pm but doesn't want it decreased- also pointed out to patient I added standing clonidine this am and that could also sedate him, though I moved guanfacine to hs- maybe just be coming down from hypomania which was all day yesterday and stayed up late playing cards with peers 04/05 hypomanic; waiting on lithium labs 04/06 Patient still manic with mixed state; discussed lithium level and patient agrees to increase dose to achieve therapeutic level. Remains with pressured speech, circumstantial and excessive. 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 Patient gives verbal permission to discussed case with outpatient PCP and stepmother Conditioner Tumbler Operator called to discuss case with outpatient provider Russel; unable to connect and mortgage loan underwriter will try again Will place call out to patient's stepmother with whom he is close -increase lithium to 900 mg 04/07 Patient remains manic, initially wanting to discharge today as his 3 day notice is due, so that he could go to apply for job on [employer]. Also wants laptop to prepare for school that he wants to enroll in this fall. Patient however willing to do some reality testing. Patient later came to mortgage loan underwriter and said he agreed to retract 3 day and stay on the unit as he realized he is not ready to discharge, that he remains way too impulsive and will just end up back in the hospital if he is not further stabilized. 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 -patient not appropriate for outpatient care and would otherwise quickly decompensate and very likely be rehospitalized; rather patient needs to remain on unit for further medication management, titration of lithium and for lab work to demonstrate that he can tolerate increased dose; patient does have slight bilateral hand tremor which he shows mortgage loan underwriter and maybe due to lithium; this was discussed with patient and he is currently amenable to continuing and further titrating lithium, hopeful that it can work 04/08 more subdued today after taking Zyprexa last night due to insomnia; continue current treatment plan 04/09 CTP Plan: CV Q 15 minute checks Increased to lithium ER 900 mg q.h.s. -Labs ordered Continue Lamictal 200mg zyprexa prn qhs for insomnia Intuniv 2mg qhs for insomnia restarted Focalin (pt feels he is very depressed without; restarting (though at lower dose) hoping it won't interfere with manic symptoms and as patient feels it's necessary if he's going to increase lithium dose); it is also possible that there could be an additive effect with lithium that could be producing hand tremor (which could conversely be due to anxiety), however at this point mortgage loan underwriter considers risk low and worth it given patient's willingness to increase lithium dose Hold fluoxetine DC Risperdal for now, hopefully monotherapy with lithium will be effective Patient educated on: diagnosis, medication risk/benefits and therapeutic strategies Informed Consent: understands Reason for continued inpatient stay Substantial Risk for: rapid decompensation Time Spent With Patient Time: Total time managing care of this patient today ____ minutes.
[2024-04-09 18:54] VITALS: BP 135/61; PULSE 95
[2024-04-09 20:00] VITALS: BP 118/60; PULSE 86; RESP 16; TEMP 37.3; O2SAT 100
[2024-04-09] MEDS: lamoTRIgine 100 MG TABLET 200 MG PO (20:26)
[2024-04-09] MEDS: Lithium Carbonate ER 450 MG TABLET.ER 900 MG PO (20:27)
[2024-04-09] MEDS: guanFACINE HCl ER 2 MG TAB.ER.24H PO (20:27)
[2024-04-09] MEDS: OLANZapine 2.5 MG TABLET PO (23:52)
[2024-04-10 01:47] VITALS: BP 124/60
[2024-04-10] MEDS: Melatonin 3 MG TABLET 9 MG PO ×2 (01:47→22:07)
[2024-04-10] MEDS: cloNIDine HCL 0.1 MG TABLET PO ×2 (01:47→10:31)
[2024-04-10] MEDS: Lactase TABLET 1 TAB PO ×4 (09:56→22:05)
--- NOTE | 2024-04-10 10:18 | P.PNPSI_ITS ---
Subjective Subjective Date of Service: 04/10/24 Reason For Visit: Hypomanic Interim History: Met with patient; discussed with team Patient says he is doing okay. Says feeling tired because of Zyprexa last night. Motorcycle Subassembly Repairer discussed how he is coming down from a manic episode however patient seems to revert back to this being more PTSD. At any rate patient says he is doing okay and asks if Adderall can be added since Focalin not available yet, to which freelance copywriter agrees Mental Status Exam Mental Status Exam Narrative: Pt is alert and oriented; behavior is more calm today; patient is not in distress; dressed in casual attire with adequate hygiene; mood is described as down and affect congruent; eye contact appropriate; Speech is a little verbose but not pressured; less hand tremor today (recently [id number] bilateral hand tremor (possibly medication induced)); no psychomotor agitation present; thought process is circumstantial and distracted, can be goal oriented; Thought content is mostly on treatment, aftercare, PTSD; no delusional content expressed; denies any SI/HI. No AVH; Patients insight and judgment impaired but improving Diagnostics Vital Signs (24Hr): Vital Signs - 24 hr 04/09/24 18:54 04/09/24 20:00 04/10/24 01:47 Temperature 99.1 F Pulse Rate 95 86 Respiratory Rate 16 Blood Pressure 135/61 118/60 124/60 Pulse Oximetry 100 Oxygen Delivery Method Room Air BMI result Body Mass Index 27.1 Labs 03/29/24 16:19 04/06/24 08:03 Medications Medications Current Medications Acetaminophen (Acetaminophen 325 Mg Tablet) 1,000 mg PO Q8H PRN PRN Reason: Headache/Pain Mild Scale (1-3) Last Admin: 04/07/24 23:21 Dose: 975 mg Al Hydroxide/Mg Hydroxide (Magnesium Hydrox/Alum Hydrox 30 Ml Oral.Susp) 30 ml PO Q6H PRN PRN Reason: Heartburn/Nausea Last Admin: 04/03/24 01:25 Dose: 30 ml Clonidine HCl (Clonidine Hcl 0.1 Mg Tablet) 0.1 mg PO Q4H PRN; Protocol PRN Reason: anxiety/insomnia Last Admin: 04/10/24 01:47 Dose: 0.1 mg Fluoxetine HCl (Fluoxetine Hcl 20 Mg Capsule) 40 mg PO DAILY [facility] Last Admin: 04/08/24 11:39 Dose: Not Given Guanfacine HCl (Guanfacine Hcl Er 2 Mg Tab.Er.24h) 2 mg PO BEDTIME [facility] Last Admin: 04/09/24 20:27 Dose: 2 mg Hydroxyzine HCl (Hydroxyzine Hcl 25 Mg Tablet) 25 mg PO Q6H PRN PRN Reason: Anxiety Last Admin: 04/03/24 07:15 Dose: 25 mg Lactase (Lactase Tablet) 1 tab PO QIDWMHS [facility] Last Admin: 04/10/24 09:56 Dose: 1 tab Lamotrigine (Lamotrigine 100 Mg Tablet) 200 mg PO BEDTIME [facility] Last Admin: 04/09/24 20:26 Dose: 200 mg [place] Carbonate ([place] Carbonate Er 450 Mg Tablet.Er) 900 mg PO BEDTIME [facility] Last Admin: 04/09/24 20:27 Dose: 900 mg Magnesium Hydroxide (Milk Of Magnesia 30 Ml Oral.Susp) 30 ml PO DAILY PRN PRN Reason: Constipation Last Admin: 04/05/24 16:47 Dose: 30 ml Melatonin (Melatonin 3 Mg Tablet) 9 mg PO BEDTIME PRN PRN Reason: for insomnia Last Admin: 04/10/24 01:47 Dose: 9 mg Nicotine (Nicotine 21 Mg Patch.Td24) 21 mg TRANSDERMA DAILY PRN PRN Reason: smoking cessation Last Admin: 04/07/24 08:22 Dose: 21 mg Nicotine Polacrilex (Nicotine Polacrilex Lozenge 4 Mg Lozenge) 4 mg BUCCAL Q2H PRN PRN Reason: Nicotine Cravings Last Admin: 04/08/24 18:47 Dose: 4 mg Pt Own (Focalin 10mg ()) 1 each PO BID@0900,1300 [facility] Last Admin: 04/10/24 09:56 Dose: 1 each Olanzapine (Olanzapine 5 Mg Tablet) 5 mg PO BEDTIME PRN PRN Reason: Insomnia Last Admin: 04/07/24 23:51 Dose: 5 mg Olanzapine (Olanzapine 2.5 Mg Tablet) 2.5 mg PO Q4H PRN PRN Reason: moderate agitation/rhina Last Admin: 04/09/24 23:52 Dose: 2.5 mg Olanzapine (Olanzapine 5 Mg Tablet) 5 mg PO TID PRN PRN Reason: mod-severe agitation/hypomania Allergies Allergies Allergy/AdvReac Type Severity Reaction Status Date / Time No Known Allergies Allergy Verified 03/29/24 14:41 [No Known Allergies*] Assessment & Plan Assessment & Plan (1) Bipolar I disorder: Status: Acute Code(s): F31.9 - Bipolar disorder, unspecified (2) Attention deficit hyperactivity disorder (ADHD): Status: Acute Code(s): F90.9 - Attention-deficit hyperactivity disorder, unspecified type (3) PTSD (post-traumatic stress disorder): Status: Acute Code(s): F43.10 - Post-traumatic stress disorder, unspecified Plan Patient is a 23-year-old male with history of bipolar type 2, PTSD, ADHD, recently discharged from on 03/23/24 who self-presents for continued Rhina, PTSD symptoms, AH. Patient reports that after he left hospital he went to [facility] homeless longterm but got lost in [him]self... 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 Patient said he started getting dizzy, hypomanic and was not eating or drinking. He then got a text from his stepmother that his sister had a seizure and patient is not sure what happened next, thinking he either panicked, lost consciousness but the room was spinning and he felt dizzy. Staff at a [facility] urged him to go to the emergency room; patient said he had hard time accepting their insistence because the right side of [his] brain felt abstract and it was hard to speak... However he did end up going to the emergency room. Endorsed intense flashbacks of trauma from the past. Patient endorsed paranoid thoughts given example that if he hurt keys jingle he thought maybe the laborer shaft sinking were here for; not sure if he had auditory hallucinations, saying there were just actual sounds but that he misinterpreted them. No SI. Clinical reasons/formulation: Patient presents again with manic symptoms, enough to get him hospitalized for 2nd time in a week. Discussed interplay between PTSD triggering rhina and vice versa; Patient starting to come to the conclusion that his rhina needs a traditional mood stabilizer. He agrees to start lithium; freelance copywriter reviewed risks/side effects, including staying away from NSAIDs, to which he agrees Hospital course: 04/02 hypomanic; did not sleep last night; will take zyprexa qhs if can't sleep tonight. Agrees to increase lamictal 04/03 says he slept last pm- not clear he needed olanzapine- seems like it might benefit him - on higher lamotrigine, continues on lithium 600mg- no change meds today but will write for standing clonidine in ams- 04/04 took prn olanzapine , also got clonidine this am - tired/sleeping CTP 04/03 clonidine really helpful for am anxiety wants to take it every am- not just prn- took x last 3 days asking about short acting antidepressants since prozac is being held- told him we usually treated bipolar with atypical antipsychotics or mood stabilizers and that helps the depressio 04/04 lying in bed exhausted says he took prn olanzapine last pm but doesn't want it decreased- also pointed out to patient I added standing clonidine this am and that could also sedate him, though I moved guanfacine to hs- maybe just be coming down from hypomania which was all day yesterday and stayed up late playing cards with peers 04/05 hypomanic; waiting on lithium labs 04/06 Patient still manic with mixed state; discussed lithium level and patient agrees to increase dose to achieve therapeutic level. Remains with pressured speech, circumstantial and excessive. 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 Patient gives verbal permission to discussed case with outpatient PCP and stepmother Motorcycle Subassembly Repairer called to discuss case with outpatient provider Russel; unable to connect and freelance copywriter will try again Will place call out to patient's stepmother with whom he is close -increase lithium to 900 mg 04/07 Patient remains manic, initially wanting to discharge today as his 3 day notice is due, so that he could go to apply for job on [employer]. Also wants laptop to prepare for school that he wants to enroll in this fall. Patient however willing to do some reality testing. Patient later came to freelance copywriter and said he agreed to retract 3 day and stay on the unit as he realized he is not ready to discharge, that he remains way too impulsive and will just end up back in the hospital if he is not further stabilized. 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 -patient not appropriate for outpatient care and would otherwise quickly decompensate and very likely be rehospitalized; rather patient needs to remain on unit for further medication management, titration of lithium and for lab work to demonstrate that he can tolerate increased dose; patient does have slight bilateral hand tremor which he shows freelance copywriter and maybe due to lithium; this was discussed with patient and he is currently amenable to continuing and further titrating lithium, hopeful that it can work 04/08 more subdued today after taking Zyprexa last night due to insomnia; continue current treatment plan 04/10 continues to stabilize; less hand tremor Plan: CV Q 15 minute checks Increased to lithium ER 900 mg q.h.s. -Labs ordered Continue Lamictal 200mg zyprexa prn qhs for insomnia Intuniv 2mg qhs for insomnia restarted Focalin (pt feels he is very depressed without; restarting (though at lower dose) hoping it won't interfere with manic symptoms and as patient feels it's necessary if he's going to increase lithium dose); it is also possible that there could be an additive effect with lithium that could be producing hand tremor (which could conversely be due to anxiety), however at this point freelance copywriter considers risk low and worth it given patient's willingness to increase lithium dose Hold fluoxetine DC Risperdal for now, hopefully monotherapy with lithium will be effective Patient educated on: diagnosis, medication risk/benefits and therapeutic strategies Informed Consent: understands and further education needed Reason for continued inpatient stay Substantial Risk for: rapid decompensation Time Spent With Patient Time: Total time managing care of this patient today ____ minutes.
[2024-04-10 10:31] VITALS: BP 142/74
[2024-04-10] MEDS: OLANZapine 2.5 MG TABLET PO (10:31)
[2024-04-10 10:33] VITALS: PULSE 110; RESP 18; TEMP 36.8; O2SAT 100
[2024-04-10 20:00] VITALS: BP 128/65; PULSE 88; RESP 16; TEMP 35.9; O2SAT 96
[2024-04-10] MEDS: lamoTRIgine 100 MG TABLET 200 MG PO (22:05)
[2024-04-10] MEDS: Lithium Carbonate ER 450 MG TABLET.ER 900 MG PO (22:05)
[2024-04-10] MEDS: guanFACINE HCl ER 2 MG TAB.ER.24H PO (22:06)
[2024-04-11 08:00] VITALS: BP 105/48; PULSE 58; RESP 16; TEMP 36.1; O2SAT 99
[2024-04-11 08:09] LABS: Lithium 0.79 mmol/L (0.60-1.20)
[2024-04-11 08:17] LABS: Blood Urea Nitrogen 12 mg/dL (9-16); Creatinine Clr Calc Pharmacy 126.3; Estimated Glomerular Filt Rate > 60
--- NOTE | 2024-04-11 08:18 | P.PNPSI_ITS ---
Subjective Subjective Date of Service: 04/11/24 Reason For Visit: Hypomanic Interim History: Met with patient; discussed with team Patient continues to be doing much better and rhina seems to be fully resolved; patient much more calm, organized and able to focus on discussion at hand. Did CBT exercise with patient, looking at core beliefs and automatic thoughts and applying it to history of trauma. Exercise resonated well with patient who said he will focus on this during the day. Tolerating Adderall well. Labs drawn and lithium level 0.79 and therapeutic; associated labs WNL Mental Status Exam Mental Status Exam Narrative: Pt is alert and oriented; behavior is more calm today; patient is not in distress; dressed in casual attire with adequate hygiene; mood is described as ok and affect congruent, more calm; eye contact appropriate; Speech is a little verbose but not pressured; no hand tremor appreciated; no psychomotor agitation present; thought process is goal oriented as well as intermittently circumstantial and distracted; Thought content is mostly on treatment, aftercare, PTSD; no delusional content expressed; denies any SI/HI. No AVH; Patients insight and judgment fair Diagnostics Vital Signs (24Hr): Vital Signs - 24 hr 04/10/24 10:31 04/10/24 10:33 04/10/24 20:00 Temperature 98.2 F 96.7 F L Pulse Rate 110 H 88 Respiratory Rate 18 16 Blood Pressure 142/74 H 128/65 Pulse Oximetry 100 96 Oxygen Delivery Method Room Air Room Air BMI result Body Mass Index 27.1 Labs 03/29/24 16:19 04/11/24 07:54 Labs: Laboratory Results - last 48 hr 04/11/24 07:54 BUN 12 Creatinine 0.85 Estim Creat Clear Calc 126.3 Estimated GFR > 60 [place] 0.79 Medications Medications Current Medications Acetaminophen (Acetaminophen 325 Mg Tablet) 1,000 mg PO Q8H PRN PRN Reason: Headache/Pain Mild Scale (1-3) Last Admin: 04/07/24 23:21 Dose: 975 mg Al Hydroxide/Mg Hydroxide (Magnesium Hydrox/Alum Hydrox 30 Ml Oral.Susp) 30 ml PO Q6H PRN PRN Reason: Heartburn/Nausea Last Admin: 04/03/24 01:25 Dose: 30 ml Amphetamine/Dextroamphetamine (Amphetamine Mixed Salts 10 Mg Tablet) 10 mg PO DAILY PAULA Clonidine HCl (Clonidine Hcl 0.1 Mg Tablet) 0.1 mg PO Q4H PRN; Protocol PRN Reason: anxiety/insomnia Last Admin: 04/10/24 10:31 Dose: 0.1 mg Fluoxetine HCl (Fluoxetine Hcl 20 Mg Capsule) 40 mg PO DAILY PAULA Last Admin: 04/08/24 11:39 Dose: Not Given Guanfacine HCl (Guanfacine Hcl Er 2 Mg Tab.Er.24h) 2 mg PO BEDTIME PAULA Last Admin: 04/10/24 22:06 Dose: 2 mg Hydroxyzine HCl (Hydroxyzine Hcl 25 Mg Tablet) 25 mg PO Q6H PRN PRN Reason: Anxiety Last Admin: 04/03/24 07:15 Dose: 25 mg Lactase (Lactase Tablet) 1 tab PO QIDWMHS PAULA Last Admin: 04/10/24 22:05 Dose: 1 tab Lamotrigine (Lamotrigine 100 Mg Tablet) 200 mg PO BEDTIME PAULA Last Admin: 04/10/24 22:05 Dose: 200 mg [place] Carbonate ([place] Carbonate Er 450 Mg Tablet.Er) 900 mg PO BEDTIME PAULA Last Admin: 04/10/24 22:05 Dose: 900 mg Magnesium Hydroxide (Milk Of Magnesia 30 Ml Oral.Susp) 30 ml PO DAILY PRN PRN Reason: Constipation Last Admin: 04/05/24 16:47 Dose: 30 ml Melatonin (Melatonin 3 Mg Tablet) 9 mg PO BEDTIME PRN PRN Reason: for insomnia Last Admin: 04/10/24 22:07 Dose: 9 mg Nicotine (Nicotine 21 Mg Patch.Td24) 21 mg TRANSDERMA DAILY PRN PRN Reason: smoking cessation Last Admin: 04/07/24 08:22 Dose: 21 mg Nicotine Polacrilex (Nicotine Polacrilex Lozenge 4 Mg Lozenge) 4 mg BUCCAL Q2H PRN PRN Reason: Nicotine Cravings Last Admin: 04/08/24 18:47 Dose: 4 mg Pt Own (Focalin 10mg ()) 1 each PO BID@0900,1300 PAULA Last Admin: 04/10/24 12:41 Dose: 1 each Olanzapine (Olanzapine 5 Mg Tablet) 5 mg PO BEDTIME PRN PRN Reason: Insomnia Last Admin: 04/07/24 23:51 Dose: 5 mg Olanzapine (Olanzapine 2.5 Mg Tablet) 2.5 mg PO Q4H PRN PRN Reason: moderate agitation/rhina Last Admin: 04/10/24 10:31 Dose: 2.5 mg Olanzapine (Olanzapine 5 Mg Tablet) 5 mg PO TID PRN PRN Reason: mod-severe agitation/hypomania Allergies Allergies Allergy/AdvReac Type Severity Reaction Status Date / Time No Known Allergies Allergy Verified 03/29/24 14:41 [No Known Allergies*] Assessment & Plan Assessment & Plan (1) Bipolar I disorder: Status: Acute Code(s): F31.9 - Bipolar disorder, unspecified (2) Attention deficit hyperactivity disorder (ADHD): Status: Acute Code(s): F90.9 - Attention-deficit hyperactivity disorder, unspecified type (3) PTSD (post-traumatic stress disorder): Status: Acute Code(s): F43.10 - Post-traumatic stress disorder, unspecified Plan Patient is a 23-year-old male with history of bipolar type 2, PTSD, ADHD, recently discharged from on 03/23/24 who self-presents for continued Rhina, PTSD symptoms, AH. Patient reports that after he left hospital he went to [facility] homeless senior care but got lost in [him]self... 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 Patient said he started getting dizzy, hypomanic and was not eating or drinking. He then got a text from his stepmother that his sister had a seizure and patient is not sure what happened next, thinking he either panicked, lost consciousness but the room was spinning and he felt dizzy. Staff at a fear urged him to go to the emergency room; patient said he had hard time accepting their insistence because the right side of [his] brain felt abstract and it was hard to speak... However he did end up going to the emergency room. Endorsed intense flashbacks of trauma from the past. Patient endorsed paranoid thoughts given example that if he hurt keys jingle he thought maybe the pit crew support worker were here for; not sure if he had auditory hallucinations, saying there were just actual sounds but that he misinterpreted them. No SI. Clinical reasons/formulation: Patient presents again with manic symptoms, enough to get him hospitalized for 2nd time in a week. Discussed interplay between PTSD triggering rhina and vice versa; Patient starting to come to the conclusion that his rhina needs a traditional mood stabilizer. He agrees to start lithium; continuity writer reviewed risks/side effects, including staying away from NSAIDs, to which he agrees Hospital course: 04/02 hypomanic; did not sleep last night; will take zyprexa qhs if can't sleep tonight. Agrees to increase lamictal 04/03 says he slept last pm- not clear he needed olanzapine- seems like it might benefit him - on higher lamotrigine, continues on lithium 600mg- no change meds today but will write for standing clonidine in ams- 04/04 took prn olanzapine , also got clonidine this am - tired/sleeping CTP 04/03 clonidine really helpful for am anxiety wants to take it every am- not just prn- took x last 3 days asking about short acting antidepressants since prozac is being held- told him we usually treated bipolar with atypical antipsychotics or mood stabilizers and that helps the depressio 04/04 lying in bed exhausted says he took prn olanzapine last pm but doesn't want it decreased- also pointed out to patient I added standing clonidine this am and that could also sedate him, though I moved guanfacine to hs- maybe just be coming down from hypomania which was all day yesterday and stayed up late playing cards with peers 04/05 hypomanic; waiting on lithium labs 04/06 Patient still manic with mixed state; discussed lithium level and patient agrees to increase dose to achieve therapeutic level. Remains with pressured speech, circumstantial and excessive. 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 Patient gives verbal permission to discussed case with outpatient PCP and stepmother Energy Project Manager called to discuss case with outpatient provider Russel; unable to connect and continuity writer will try again Will place call out to patient's stepmother with whom he is close -increase lithium to 900 mg 04/07 Patient remains manic, initially wanting to discharge today as his 3 day notice is due, so that he could go to apply for job on [employer]. Also wants laptop to prepare for school that he wants to enroll in this fall. Patient however willing to do some reality testing. Patient later came to continuity writer and said he agreed to retract 3 day and stay on the unit as he realized he is not ready to discharge, that he remains way too impulsive and will just end up back in the hospital if he is not further stabilized. 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 -patient not appropriate for outpatient care and would otherwise quickly decompensate and very likely be rehospitalized; rather patient needs to remain on unit for further medication management, titration of lithium and for lab work to demonstrate that he can tolerate increased dose; patient does have slight bilateral hand tremor which he shows continuity writer and maybe due to lithium; this was discussed with patient and he is currently amenable to continuing and further titrating lithium, hopeful that it can work 04/08 more subdued today after taking Zyprexa last night due to insomnia; continue current treatment plan 04/10 continues to stabilize; less hand tremor 04/11 Patient continues to be doing much better and rhina seems to be fully resolved; patient much more calm, organized and able to focus on discussion at hand. Did CBT exercise with patient, looking at core beliefs and automatic thoughts and applying it to history of trauma. Exercise resonated well with patient who said he will focus on this during the day. Tolerating Adderall well. -Labs drawn and lithium level 0.79 and therapeutic; associated labs WNL -will consider whether to restart fluoxetine Plan: CV Q 15 minute checks Increased to lithium ER 900 mg q.h.s. Continue Lamictal 200mg zyprexa prn qhs for insomnia Intuniv 2mg qhs for insomnia continue Adderall XR (Focalin ran out) Hold fluoxetine DC Risperdal for now, hopefully monotherapy with lithium will be effective Patient educated on: diagnosis, medication risk/benefits and therapeutic strategies Informed Consent: understands Reason for continued inpatient stay Substantial Risk for: stable for discharge Time Spent With Patient Time: Total time managing care of this patient today ____ minutes.
[2024-04-11] MEDS: Amphetamine Mixed Salts 10 MG TABLET PO ×2 (08:20→12:37)
[2024-04-11] MEDS: Lactase TABLET 1 TAB PO ×4 (08:20→20:26)
[2024-04-11 08:33] LABS: TSH reflex Free T4 2.47 uIU/mL (0.32-4.0)
[2024-04-11 11:24] VITALS: BP 139/78
[2024-04-11] MEDS: cloNIDine HCL 0.1 MG TABLET PO ×3 (11:24→21:58)
[2024-04-11 17:02] VITALS: BP 146/65
[2024-04-11 20:00] VITALS: BP 152/98; PULSE 91; RESP 16; TEMP 36.2; O2SAT 100
[2024-04-11] MEDS: guanFACINE HCl ER 2 MG TAB.ER.24H PO (20:26)
[2024-04-11] MEDS: lamoTRIgine 100 MG TABLET 200 MG PO (20:27)
[2024-04-11 21:58] VITALS: BP 139/64
[2024-04-11] MEDS: Lithium Carbonate ER 450 MG TABLET.ER 900 MG PO (21:58)
[2024-04-11] MEDS: Acetaminophen 325 MG TABLET 1000 MG PO (22:01)
[2024-04-11] MEDS: OLANZapine 2.5 MG TABLET PO (22:05)
[2024-04-12] MEDS: OLANZapine 5 MG TABLET PO (00:20)
[2024-04-12] MEDS: Magnesium Hydrox/Alum Hydrox 30 ML ORAL.SUSP PO (00:51)
[2024-04-12 04:53] VITALS: BP 122/58
[2024-04-12] MEDS: cloNIDine HCL 0.1 MG TABLET PO ×3 (04:53→18:03)
--- NOTE | 2024-04-12 06:40 | PC.NURSE ---
Patient requested to speak to this auto service writer twice over the course of the evening; once for 15 minutes, and the second time for approximately one half hour. Patient stated repeatedly I'm just trying to learn how to be a human. 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 I don't know how to just be. Patient spoke about his apprehension, I don't know where I'm going from here. I want to get an apartment where the peewee [his younger siblings] can live with me. I'm ticking the boxes with a lot of agencies to do that. Eduardo didn't seem to have any points to make during the conversation, moving from subject to subject quickly. While he does not have pressured sleep, he is hyperverbal. This auto service writer was emotionally supportive of the patient during these conversations, but had difficulty withdrawing from the second conversation.
[2024-04-12 07:57] VITALS: BP 114/56; PULSE 72; RESP 16; TEMP 35.9; O2SAT 99
[2024-04-12] MEDS: Lactase TABLET 1 TAB PO ×4 (08:46→21:23)
[2024-04-12] MEDS: Dextroamphetamine/Amphetamine XR 10 MG CAP.ER.24H PO (08:46)
[2024-04-12] MEDS: Amphetamine Mixed Salts 10 MG TABLET PO ×2 (08:46→16:39)
[2024-04-12] MEDS: Acetaminophen 325 MG TABLET 1000 MG PO (10:00)
[2024-04-12 10:56] VITALS: BP 152/79
[2024-04-12] MEDS: hydrOXYzine HCL 25 MG TABLET PO (10:56)
--- NOTE | 2024-04-12 12:00 | HO.PSYCHPN ---
Subjective Subjective Date of Service: 04/12/24 Reason For Visit: Hypomanic Interim History: met with patient; discussed with team Anxious about discharge but overall feeling much better. Adderall working well but agrees to get back on Focalin since Adderall is on back order. Patient had another moment of dissociation/dizziness from anxiety which seemed to trigger a headache; all that resolved with Ativan and patient was able to see the connection between anxiety and this sensation. Discussed about dissociation which medical technical writer agrees happens from time to time with patient. Patient discussed being on the road to dealing with his PTSD and understands it will take a long time but is committed to it. Mental Status Exam Mental Status Exam Narrative: Pt is alert and oriented; behavior is overall calm, cooperative and friendly; patient is not in distress; dressed in casual attire with adequate hygiene; mood is described as ok and affect congruent, more calm; eye contact appropriate; Speech is a little verbose but normal rate, volume and prosody; not pressured; no hand tremor appreciated; no psychomotor agitation present; thought process is goal oriented and linear though can also be intermittently circumstantial and distracted; Thought content is mostly on treatment, aftercare, PTSD; no delusional content expressed; denies any SI/HI. No AVH; Patients insight and judgment fair Diagnostics Vital Signs (24Hr): Vital Signs - 24 hr 04/11/24 17:02 04/11/24 20:00 04/11/24 21:58 Temperature 97.1 F Pulse Rate 91 Respiratory Rate 16 Blood Pressure 146/65 H 152/98 H 139/64 Pulse Oximetry 100 Oxygen Delivery Method Room Air 04/12/24 04:53 04/12/24 07:57 04/12/24 10:56 Temperature 96.6 F L Pulse Rate 72 Respiratory Rate 16 Blood Pressure 122/58 L 114/56 L 152/79 H Pulse Oximetry 99 Oxygen Delivery Method Room Air BMI result Body Mass Index 27.1 Labs 03/29/24 16:19 04/11/24 07:54 Labs: Laboratory Results - last 48 hr 04/11/24 07:54 BUN 12 Creatinine 0.85 Estim Creat Clear Calc 126.3 Estimated GFR > 60 TSH 2.47 [place] 0.79 Medications Medications Current Medications Acetaminophen (Acetaminophen 325 Mg Tablet) 1,000 mg PO Q8H PRN PRN Reason: Headache/Pain Mild Scale (1-3) Last Admin: 04/12/24 10:00 Dose: 975 mg Al Hydroxide/Mg Hydroxide (Magnesium Hydrox/Alum Hydrox 30 Ml Oral.Susp) 30 ml PO Q6H PRN PRN Reason: Heartburn/Nausea Last Admin: 04/12/24 00:51 Dose: 30 ml Amphetamine/Dextroamphetamine (Amphetamine Mixed Salts 10 Mg Tablet) 10 mg PO DAILY [facility] Last Admin: 04/12/24 08:46 Dose: 10 mg Amphetamine/Dextroamphetamine (Dextroamphetamine/Amphetamine Xr 10 Mg Cap.Er.24h) 10 mg PO DAILY [facility] Last Admin: 04/12/24 08:46 Dose: 10 mg Clonidine HCl (Clonidine Hcl 0.1 Mg Tablet) 0.1 mg PO Q4H PRN; Protocol PRN Reason: anxiety/insomnia Last Admin: 04/12/24 10:56 Dose: 0.1 mg Fluoxetine HCl (Fluoxetine Hcl 20 Mg Capsule) 40 mg PO DAILY [facility] Last Admin: 04/08/24 11:39 Dose: Not Given Guanfacine HCl (Guanfacine Hcl Er 2 Mg Tab.Er.24h) 2 mg PO BEDTIME [facility] Last Admin: 04/11/24 20:26 Dose: 2 mg Hydroxyzine HCl (Hydroxyzine Hcl 25 Mg Tablet) 25 mg PO Q6H PRN PRN Reason: Anxiety Last Admin: 04/12/24 10:56 Dose: 25 mg Lactase (Lactase Tablet) 1 tab PO QIDWMHS [facility] Last Admin: 04/12/24 08:46 Dose: 1 tab Lamotrigine (Lamotrigine 100 Mg Tablet) 200 mg PO BEDTIME [facility] Last Admin: 04/11/24 20:27 Dose: 200 mg [place] Carbonate ([place] Carbonate Er 450 Mg Tablet.Er) 900 mg PO BEDTIME [facility] Last Admin: 04/11/24 21:58 Dose: 900 mg Magnesium Hydroxide (Milk Of Magnesia 30 Ml Oral.Susp) 30 ml PO DAILY PRN PRN Reason: Constipation Last Admin: 04/05/24 16:47 Dose: 30 ml Melatonin (Melatonin 3 Mg Tablet) 9 mg PO BEDTIME PRN PRN Reason: for insomnia Last Admin: 04/10/24 22:07 Dose: 9 mg Nicotine (Nicotine 21 Mg Patch.Td24) 21 mg TRANSDERMA DAILY PRN PRN Reason: smoking cessation Last Admin: 04/07/24 08:22 Dose: 21 mg Nicotine Polacrilex (Nicotine Polacrilex Lozenge 4 Mg Lozenge) 4 mg BUCCAL Q2H PRN PRN Reason: Nicotine Cravings Last Admin: 04/08/24 18:47 Dose: 4 mg Pt Own (Focalin 10mg ()) 1 each PO BID@0900,1300 PAULA Last Admin: 04/12/24 09:03 Dose: Not Given Olanzapine (Olanzapine 5 Mg Tablet) 5 mg PO BEDTIME PRN PRN Reason: Insomnia Last Admin: 04/12/24 00:20 Dose: 5 mg Olanzapine (Olanzapine 2.5 Mg Tablet) 2.5 mg PO Q4H PRN PRN Reason: moderate agitation/rhina Last Admin: 04/11/24 22:05 Dose: 2.5 mg Olanzapine (Olanzapine 5 Mg Tablet) 5 mg PO TID PRN PRN Reason: mod-severe agitation/hypomania Allergies Allergies Allergy/AdvReac Type Severity Reaction Status Date / Time No Known Allergies Allergy Verified 03/29/24 14:41 [No Known Allergies*] Assessment & Plan Assessment & Plan (1) Bipolar I disorder: Status: Acute Code(s): F31.9 - Bipolar disorder, unspecified (2) Attention deficit hyperactivity disorder (ADHD): Status: Acute Code(s): F90.9 - Attention-deficit hyperactivity disorder, unspecified type (3) PTSD (post-traumatic stress disorder): Status: Acute Code(s): F43.10 - Post-traumatic stress disorder, unspecified Plan Patient is a 23-year-old male with history of bipolar type 2, PTSD, ADHD, recently discharged from on 03/23/24 who self-presents for continued Rhina, PTSD symptoms, AH. Patient reports that after he left hospital he went to [facility] homeless senior living but got lost in [him]self... 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 Patient said he started getting dizzy, hypomanic and was not eating or drinking. He then got a text from his stepmother that his sister had a seizure and patient is not sure what happened next, thinking he either panicked, lost consciousness but the room was spinning and he felt dizzy. Staff at a fear urged him to go to the emergency room; patient said he had hard time accepting their insistence because the right side of [his] brain felt abstract and it was hard to speak... However he did end up going to the emergency room. Endorsed intense flashbacks of trauma from the past. Patient endorsed paranoid thoughts given example that if he hurt keys jingle he thought maybe the net developer with [facility] were here for; not sure if he had auditory hallucinations, saying there were just actual sounds but that he misinterpreted them. No SI. Clinical reasons/formulation: Patient presents again with manic symptoms, enough to get him hospitalized for 2nd time in a week. Discussed interplay between PTSD triggering rhina and vice versa; Patient starting to come to the conclusion that his rhina needs a traditional mood stabilizer. He agrees to start lithium; medical technical writer reviewed risks/side effects, including staying away from NSAIDs, to which he agrees Hospital course: 04/02 hypomanic; did not sleep last night; will take zyprexa qhs if can't sleep tonight. Agrees to increase lamictal 04/03 says he slept last pm- not clear he needed olanzapine- seems like it might benefit him - on higher lamotrigine, continues on lithium 600mg- no change meds today but will write for standing clonidine in ams- 04/04 took prn olanzapine , also got clonidine this am - tired/sleeping CTP 04/03 clonidine really helpful for am anxiety wants to take it every am- not just prn- took x last 3 days asking about short acting antidepressants since prozac is being held- told him we usually treated bipolar with atypical antipsychotics or mood stabilizers and that helps the depressio 04/04 lying in bed exhausted says he took prn olanzapine last pm but doesn't want it decreased- also pointed out to patient I added standing clonidine this am and that could also sedate him, though I moved guanfacine to hs- maybe just be coming down from hypomania which was all day yesterday and stayed up late playing cards with peers 04/05 hypomanic; waiting on lithium labs 04/06 Patient still manic with mixed state; discussed lithium level and patient agrees to increase dose to achieve therapeutic level. Remains with pressured speech, circumstantial and excessive. 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 Patient gives verbal permission to discussed case with outpatient PCP and stepmother [employer] called to discuss case with outpatient provider Russel; unable to connect and medical technical writer will try again Will place call out to patient's stepmother with whom he is close -increase lithium to 900 mg 04/07 Patient remains manic, initially wanting to discharge today as his 3 day notice is due, so that he could go to apply for job on [employer]. Also wants laptop to prepare for school that he wants to enroll in this fall. Patient however willing to do some reality testing. Patient later came to medical technical writer and said he agreed to retract 3 day and stay on the unit as he realized he is not ready to discharge, that he remains way too impulsive and will just end up back in the hospital if he is not further stabilized. 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 -patient not appropriate for outpatient care and would otherwise quickly decompensate and very likely be rehospitalized; rather patient needs to remain on unit for further medication management, titration of lithium and for lab work to demonstrate that he can tolerate increased dose; patient does have slight bilateral hand tremor which he shows medical technical writer and maybe due to lithium; this was discussed with patient and he is currently amenable to continuing and further titrating lithium, hopeful that it can work 04/08 more subdued today after taking Zyprexa last night due to insomnia; continue current treatment plan 04/10 continues to stabilize; less hand tremor 04/11 Patient continues to be doing much better and rhina seems to be fully resolved; patient much more calm, organized and able to focus on discussion at hand. Did CBT exercise with patient, looking at core beliefs and automatic thoughts and applying it to history of trauma. Exercise resonated well with patient who said he will focus on this during the day. Tolerating Adderall well. -Labs drawn and lithium level 0.79 and therapeutic; associated labs WNL -will consider whether to restart fluoxetine 04/12. Patient remains stable and rhina fully resolved; some anxiety about discharging tomorrow since about going to a senior living. He is optimistic about continuing to progress in his treatment as an outpatient, very much wanting to work on his history of trauma. Patient is at baseline and appropriate to return to the community for treatment. He is not in imminent risk for harm to self or others and ready for discharge. -will probably restart fluoxetine but at much lower dose to make sure patient does not get tripped into rhina Plan: CV Q 15 minute checks Increased to lithium ER 900 mg q.h.s. Continue Lamictal 200mg zyprexa prn qhs for insomnia Intuniv 2mg qhs for insomnia continue Adderall XR (Focalin ran out) Hold fluoxetine DC Risperdal for now, hopefully monotherapy with lithium will be effective Patient educated on: diagnosis, medication risk/benefits and therapeutic strategies Informed Consent: understands Reason for continued inpatient stay Substantial Risk for: stable for discharge Time Spent With Patient Time: Total time managing care of this patient today ____ minutes.
[2024-04-12] MEDS: LORazepam 1 MG TABLET PO (15:29)
[2024-04-12 18:03] VITALS: BP 160/72
[2024-04-12 19:47] VITALS: BP 158/75; PULSE 80; RESP 14; TEMP 36.7; O2SAT 100
[2024-04-12] MEDS: Lithium Carbonate ER 450 MG TABLET.ER 900 MG PO (22:00)
[2024-04-12] MEDS: lamoTRIgine 100 MG TABLET 200 MG PO (22:00)
[2024-04-12] MEDS: Melatonin 3 MG TABLET 9 MG PO (22:00)
[2024-04-12] MEDS: guanFACINE HCl ER 2 MG TAB.ER.24H PO (22:00)
[2024-04-13] MEDS: Acetaminophen 325 MG TABLET 1000 MG PO ×2 (00:58→08:46)
[2024-04-13] MEDS: OLANZapine 5 MG TABLET PO (00:59)
[2024-04-13 08:00] VITALS: BP 116/65; PULSE 80; RESP 14; TEMP 36.1; O2SAT 100
[2024-04-13] MEDS: Dextroamphetamine/Amphetamine XR 10 MG CAP.ER.24H PO (08:41)
[2024-04-13] MEDS: Lactase TABLET 1 TAB PO ×2 (08:42→12:06)
[2024-04-13] MEDS: FLUoxetine HCl 20 MG CAPSULE 40 MG PO (08:42)
--- NOTE | 2024-04-13 09:21 | PM.PSYDC ---
DS: Providers Provider Date of Service: 04/13/24 Date of admission: 03/31/24 12:33 Date of discharge: 04/13/24 Primary care physician: Sam Physician Attending physician on admission: Power Garvey Attending physician on discharge: Power Garvey DS: Diagnosis Discharge Diagnosis (1) Bipolar I disorder: Status: Acute (2) Attention deficit hyperactivity disorder (ADHD): Status: Acute (3) PTSD (post-traumatic stress disorder): Status: Acute DS: Medications Discharge Medications Home Medications: Previous Rx's ?Medication ?Instructions ?Recorded dexmethylphenidate 20 mg 20 mg PO DAILY 30 days #30 caps 04/09/24 capsule,extended release [id number] dexmethylphenidate 5 mg tablet 10 mg (2 x 5 mg) PO DAILY@1400 30 04/12/24 (Focalin) days #60 tabs clonidine HCl 0.1 mg tablet 0.1 mg PO Q4H PRN anxiety/insomnia 04/13/24 30 days #90 tabs fluoxetine 10 mg capsule 10 mg PO DAILY 30 days #30 caps 04/13/24 guanfacine 2 mg tablet 2 mg PO BEDTIME 30 days #30 tabs 04/13/24 hydroxyzine HCl 25 mg tablet 25 mg PO Q6H PRN Anxiety 30 days 04/13/24 #90 tabs lactase 3,000 unit tablet 3,000 unit PO TIDWM 30 days #90 04/13/24 (Dairy-Aid) tabs lamotrigine 200 mg tablet 200 mg PO BEDTIME 30 days #30 tabs 04/13/24 lithium carbonate 450 mg 900 mg (2 x 450 mg) PO BEDTIME 30 04/13/24 tablet,extended release days #60 tabs melatonin 10 mg tablet 10 mg PO BEDTIME PRN sleep 30 days 04/13/24 #30 tabs nicotine (polacrilex) 4 mg buccal 4 mg buccal Q2H PRN Nicotine 04/13/24 lozenge Cravings 30 days #108 ea olanzapine 5 mg tablet 5 mg PO TID PRN 04/13/24 agitation/hypomania 30 days #60 tabs Mental Status Exam Mental Status Exam Narrative: Pt is alert and oriented; behavior is overall calm, cooperative and friendly; patient is not in distress; dressed in casual attire with adequate hygiene; mood is described as ok and affect congruent, more calm; eye contact appropriate; Speech is a little verbose but normal rate, volume and prosody; not pressured; no hand tremor appreciated; no psychomotor agitation present; thought process is goal oriented and linear though can also be intermittently circumstantial and distracted; Thought content is mostly on treatment, aftercare, PTSD; no delusional content expressed; denies any SI/HI. No AVH; Patients insight and judgment fair Data Data Completed and Pending Completed studies during hospitalization [Text1]: 04/11/24 07:54 BUN 12 Creatinine 0.85 Estim Creat Clear Calc 126.3 Estimated GFR > 60 TSH 2.47 Carnuel 0.79 DS: Summary Hospital Course Hospital Course: HPI: Patient is a 23-year-old male with history of bipolar type 2, PTSD, ADHD, recently discharged from on 03/23/24 who self-presents for continued Oly, PTSD symptoms, AH. Patient reports that after he left hospital he went to [facility] homeless prison but got lost in [him]self... 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 Patient said he started getting dizzy, hypomanic and was not eating or drinking. He then got a text from his stepmother that his sister had a seizure and patient is not sure what happened next, thinking he either panicked, lost consciousness but the room was spinning and he felt dizzy. Staff at a fear urged him to go to the emergency room; patient said he had hard time accepting their insistence because the right side of [his] brain felt abstract and it was hard to speak... However he did end up going to the emergency room. Endorsed intense flashbacks of trauma from the past. Patient endorsed paranoid thoughts given example that if he hurt keys jingle he thought maybe the insert operator were here for; not sure if he had auditory hallucinations, saying there were just actual sounds but that he misinterpreted them. No SI. Clinical reasons/formulation: Patient presents again with manic symptoms, enough to get him hospitalized for 2nd time in a week. Discussed interplay between PTSD triggering oly and vice versa; Patient starting to come to the conclusion that his oly needs a traditional mood stabilizer. He agrees to start lithium; assembly instructions writer reviewed risks/side effects, including staying away from NSAIDs, to which he agrees Hospital course: 04/02 hypomanic; did not sleep last night; will take zyprexa qhs if can't sleep tonight. Agrees to increase lamictal 04/03 says he slept last pm- not clear he needed olanzapine- seems like it might benefit him - on higher lamotrigine, continues on lithium 600mg- no change meds today but will write for standing clonidine in ams- 04/04 took prn olanzapine , also got clonidine this am - tired/sleeping CTP 04/03 clonidine really helpful for am anxiety wants to take it every am- not just prn- took x last 3 days asking about short acting antidepressants since prozac is being held- told him we usually treated bipolar with atypical antipsychotics or mood stabilizers and that helps the depressio 04/04 lying in bed exhausted says he took prn olanzapine last pm but doesn't want it decreased- also pointed out to patient I added standing clonidine this am and that could also sedate him, though I moved guanfacine to hs- maybe just be coming down from hypomania which was all day yesterday and stayed up late playing cards with peers 04/05 hypomanic; waiting on lithium labs 04/06 Patient still manic with mixed state; discussed lithium level and patient agrees to increase dose to achieve therapeutic level. Remains with pressured speech, circumstantial and excessive. 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 Patient gives verbal permission to discussed case with outpatient PCP and stepmother Medical Videographer called to discuss case with outpatient provider Russel; unable to connect and assembly instructions writer will try again Will place call out to patient's stepmother with whom he is close -increase lithium to 900 mg 04/07 Patient remains manic, initially wanting to discharge today as his 3 day notice is due, so that he could go to apply for job on [employer]. Also wants laptop to prepare for school that he wants to enroll in this fall. Patient however willing to do some reality testing. Patient later came to assembly instructions writer and said he agreed to retract 3 day and stay on the unit as he realized he is not ready to discharge, that he remains way too impulsive and will just end up back in the hospital if he is not further stabilized. 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 -patient not appropriate for outpatient care and would otherwise quickly decompensate and very likely be rehospitalized; rather patient needs to remain on unit for further medication management, titration of lithium and for lab work to demonstrate that he can tolerate increased dose; patient does have slight bilateral hand tremor which he shows assembly instructions writer and maybe due to lithium; this was discussed with patient and he is currently amenable to continuing and further titrating lithium, hopeful that it can work 04/08 more subdued today after taking Zyprexa last night due to insomnia; continue current treatment plan 04/10 continues to stabilize; less hand tremor 04/11 Patient continues to be doing much better and oly seems to be fully resolved; patient much more calm, organized and able to focus on discussion at hand. Did CBT exercise with patient, looking at core beliefs and automatic thoughts and applying it to history of trauma. Exercise resonated well with patient who said he will focus on this during the day. Tolerating Adderall well. -Labs drawn and lithium level 0.79 and therapeutic; associated labs WNL -discussed with patient and agreed to restarted fluoxetine at 10 mg(patient normally on 40) with intent her outpatient provider to increase says patient remained stable Patient remains stable and oly fully resolved; he continues to have anxiety about discharge and about going to a prison. But he is optimistic about progress made in his treatment and very much wants to work on his history of trauma. Patient is at baseline and appropriate to return to the community for treatment. He is not in imminent risk for harm to self or others and ready for discharge. Medications: Startedlithium ER 900 mg q.h.s. Continued Lamictal 200mg Continued zyprexa prn qhs for insomnia ContinuedIntuniv 2mg qhs for insomnia continue Focalin ran out Reduced fluoxetine to 10mg (initially on 40mg but held to address oly) DC Risperdal Time spent discussing smoking cessation with patient: 3 to 10 minutes Status at Discharge Functional status at discharge: independent ambulation Overall status at discharge: patient is back to baseline Time Spent with Patient Time attestation: Total time managing care of this patient today __40__ minutes. Time spent: Greater than 30 minutes Specific discharge activities: Met with patient; discussed with team; prescriptions Discharge Plan Discharge Anticipated Discharge Date/Time: 04/13/24 11:30 Patient Disposition: [facility] Discharge Diagnosis: Bipolar 1, recurrent, moderate, most recent episode manic, in full remission Referrals: [facility] ([facility]) [Other] - 06/07/24 10:00 am (Appointment will be via zoom for the initial assessment for program eligibility and will last approximately 2 hour ) [facility]- Jeevan Kuo (Therapy) [Other] - 04/19/24 1:00 pm [facility]- Howard Goode (Medication Prescriber) [Other] - 04/29/24 4:40 pm [facility] [Other] - 1 Day (Pt to present today for intake.) Physician,None [Primary Care Provider] - 1 Week (Pt declines follow up appointment) Discharge Medications: New dexmethylphenidate 20 mg capsule,ER biphasic 50-50 20 mg PO DAILY 30 Days Qty: 30 0RF Rx Instructions: Partial Fill upon patient request. dexmethylphenidate [Focalin] 5 mg tablet 10 mg PO DAILY@1400 30 Days Qty: 60 0RF Rx Instructions: Partial Fill upon patient request. nicotine (polacrilex) 4 mg Lozenge 4 mg buccal Q2H PRN (Reason: Nicotine Cravings) 30 Days Qty: 108 0RF hydroxyzine HCl 25 mg Tablet 25 mg PO Q6H PRN (Reason: Anxiety) 30 Days Qty: 90 1RF lithium carbonate 450 mg Tablet Extended Release 900 mg PO BEDTIME 30 Days Qty: 60 1RF Continued clonidine HCl 0.1 mg Tablet 0.1 mg PO Q4H PRN (Reason: anxiety/insomnia) 30 Days Qty: 90 1RF Protocol: Hold for SBP< HOLD for SBP < : 90 olanzapine 5 mg Tablet 5 mg PO TID PRN (Reason: agitation/hypomania) 30 Days Qty: 60 1RF lactase [Dairy-Aid] 3,000 unit Tablet 3,000 unit PO TIDWM 30 Days Qty: 90 1RF Changed lamotrigine 200 mg tablet 200 mg PO BEDTIME 30 Days Qty: 30 1RF fluoxetine 10 mg capsule 10 mg PO DAILY 30 Days Qty: 30 0RF guanfacine 2 mg tablet 2 mg PO BEDTIME 30 Days Qty: 30 1RF melatonin 10 mg tablet 10 mg PO BEDTIME PRN (Reason: sleep) 30 Days Qty: 30 1RF Discontinued nicotine (polacrilex) 4 mg Lozenge 4 mg buccal Q2H PRN (Reason: Nicotine Cravings) Qty: 81 0RF trazodone 50 mg Tablet 50 mg PO BEDTIME MRX1 PRN (Reason: Insomnia) Qty: 30 0RF risperidone 2 mg Tablet 2 mg PO BEDTIME Qty: 30 0RF Discharge Orders: Discharge Order (Routine); Ordered 04/13/24 Ordered By: Power Garvey Diet: Regular diet Activity on Discharge: As tolerated Stand Alone Forms: Patient Portal Discharge page, Community Support Print Language: Uzbek Care Plan Goals: Maintain mood and safe behaviors Take medications as prescribed Practice coping skills Continue with outpatient providers and reach out to them as needed Health Concerns: Mood stability and behaviors Sobriety from Cannabis Plan of Treatment: Follow up with your PCP, psychiatric provider and other outpatient providers regarding above concerns Take medications as prescribed Assessment: Risk assessment at time of discharge:? Patient was interviewed prior to discharge and found to be fully oriented and without any SI or HI. Patient has improved insight and judgment and wants to continue treatment. Patient is not in imminent risk of harm to self or others and has a safety plan that includes presenting to the closest ER or calling 911 if feeling unsafe.? Patient has been observed closely by nursing and unit staff throughout admission; patient has not engaged in any behaviors that suggest dangerousness to self or others and has demonstrated appropriate behaviors and impulse control Discharge Date/Time: 04/13/24 13:33
[2024-04-13 10:24] VITALS: BP 142/84
[2024-04-13] MEDS: cloNIDine HCL 0.1 MG TABLET PO (10:24)
[2024-04-13] MEDS: Nicotine Polacrilex Lozenge 4 MG LOZENGE BUCCAL (12:06)
== END 2024-04-13 13:33 | disposition home or self-care (01) | DRG 753 ==
LOC: HO.ED 03-31 13:00 → HO.PM5 03-31 13:38
PROVIDERS: Physician Assistant Medical; Admitting Provider Psychiatry & Neurology Psychiatry; Emergency Provider Emergency Medicine; Visit Provider Psychiatry & Neurology Psychiatry
DX: F31.12 Bipolar disorder, current episode manic without psychotic features, moderate (principal); F17.210 Nicotine dependence, cigarettes, uncomplicated; F43.10 Post-traumatic stress disorder, unspecified; F90.9 Attention-deficit hyperactivity disorder, unspecified type; Z59.02 Unsheltered homelessness; Z71.6 Tobacco abuse counseling; Z79.899 Other long term (current) drug therapy
CPT/HCPCS: 36415; 80048; 80076; 80178; 80307; 81003; 82565; 84443; 84520; 85025; 93005; 99285; S9485

== ENCOUNTER → 2024-03-31 12:33 | Outpatient (BNV) | payer BC, MEDICAID, SELFPAY | PROVIDERS: Admitting Provider Psychiatry & Neurology Psychiatry; Emergency Provider Emergency Medicine; Visit Provider Psychiatry & Neurology Psychiatry | DX: F31.0 Bipolar disorder, current episode hypomanic (principal); F90.9 Attention-deficit hyperactivity disorder, unspecified type; F43.11 Post-traumatic stress disorder, acute | CPT/HCPCS: 90792; 99231; 99232; 99239 ==

== ENCOUNTER 2024-10-06 13:09 | Day surgery (SDC) | payer BC, MEDICAID, SELFPAY ==
[2024-10-06] VITALS (7 sets, daily range): BP systolic 98–127; BP diastolic 55–77; PULSE 58–87; RESP 15–20; TEMP 36.1–36.7; O2SAT 100; BMI 23.3
--- NOTE | ~2024-10-06 | CT_ITS ---
EXAMINATION: CT SOFT TISSUE NECK WITHOUT IV CONTRAST CLINICAL INFORMATION: Concerning for body. TECHNIQUE: Contiguous axial images through the soft tissue neck from the skull base to the thoracic inlet using 2 mm collimation without the IV contrast. Soft tissue algorithm. Sagittal and coronal reformatted images acquired. DLP: 607 mGy centimeter. COMPARISON: None FINDINGS: Limited evaluation of the soft tissues of the neck. There is no metallic or radiopaque foreign body in the airways or the cervical esophagus.. Is fluid and food contents in the intrathoracic esophagus below the nimo. Skull base, nasopharynx, retropharynx, oropharynx, hypopharynx and larynx demonstrated no gross masses or fluid collections. Secretions in the vallecula. Tool Grinder spaces parapharyngeal spaces and carotid compartments demonstrated no gross masses or fluid collections. There is no dominant nodule in the thyroid gland. No acute airspace disease in the included lungs. No acute fracture or listhesis in the cervical spine. Tympanic cavities and mastoid cells are aerated. CT/CT soft tissue neck wo IV con IMPRESSION: Fluid and food contents within the lumen of the intrathoracic esophagus below the nimo. Electronically signed by: Kendall Bautista MD 10/06/2024 02:47 PM EDT
--- NOTE | 2024-10-06 13:50 | ED_ITS ---
HPI - General Adult General Chief complaint: General Medical Stated complaint: Throat Pain, Can't Swallow, Irritated Throat Time Seen by Provider: 10/06/24 14:48 Source: patient, RN notes reviewed and old records reviewed Mode of arrival: ambulatory History of Present Illness ED Provider: Lupe Dick PA-C HPI narrative: 23-year-old male with a past medical history bipolar, PTSD, ADHD, prior esophageal foreign body, presenting to the ED complaining of sore throat, foreign body sensation, & inability to tolerate p.o. 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 States symptoms appear similar to prior food bolus. Admits tried everything at home, and is unable to keep liquids down. Denies CP/SOB Related Data Previous Rx's ?Medication ?Instructions ?Recorded dexmethylphenidate 20 mg 20 mg PO DAILY 30 days #30 caps 04/09/24 capsule,extended release [id number] dexmethylphenidate 5 mg tablet 10 mg (2 x 5 mg) PO DAILY@1400 30 04/12/24 (Focalin) days #60 tabs clonidine HCl 0.1 mg tablet 0.1 mg PO Q4H PRN anxiety/insomnia 04/13/24 30 days #90 tabs fluoxetine 10 mg capsule 10 mg PO DAILY 30 days #30 caps 04/13/24 guanfacine 2 mg tablet 2 mg PO BEDTIME 30 days #30 tabs 04/13/24 hydroxyzine HCl 25 mg tablet 25 mg PO Q6H PRN Anxiety 30 days 04/13/24 #90 tabs lactase 3,000 unit tablet 3,000 unit PO TIDWM 30 days #90 04/13/24 (Dairy-Aid) tabs lamotrigine 200 mg tablet 200 mg PO BEDTIME 30 days #30 tabs 04/13/24 lithium carbonate 450 mg 900 mg (2 x 450 mg) PO BEDTIME 30 04/13/24 tablet,extended release days #60 tabs melatonin 10 mg tablet 10 mg PO BEDTIME PRN sleep 30 days 04/13/24 #30 tabs nicotine (polacrilex) 4 mg buccal 4 mg buccal Q2H PRN Nicotine 04/13/24 lozenge Cravings 30 days #108 ea olanzapine 5 mg tablet 5 mg PO TID PRN 04/13/24 agitation/hypomania 30 days #60 tabs Allergies Allergy/AdvReac Type Severity Reaction Status Date / Time No Known Allergies Allergy Verified 10/06/24 13:50 [No Known Allergies*] Review of Systems 2 Review of Systems: Yes all other systems are reviewed and are negative Constitutional: Constitutional: Reports as per [facility] Past Medical History Attestation statement: The following information was validated with the patient. Source: old records reviewed Medical History Bipolar II disorder Bipolar I disorder PTSD (post-traumatic stress disorder) No known health problems Social History Social History Household Members: None Housing: Homeless Do you presently have visiting nurse or other home services: No Alcohol intake: current Alcohol intake frequency: holidays/special occasions only Patient Tobacco Use Status: Current everyday Tobacco user Tobacco use type: Cigarette Cigarette Packs Per Day: 0 Cigarettes Per Day: 5 Years Smoked: 3 e-Cigarette/Vaping Use: Never Used Second Hand Smoke Exposure: Yes Substance Use Type: Marijuana Advance Directives: No Advance Directives Information Provided: Yes service: No Sexual orientation: poly-amorous Physical Exam ED Vital Signs: Vital Signs - 24 hr 10/06/24 13:49 10/06/24 15:47 Temperature 98.0 F 98.0 F Pulse Rate 87 80 Respiratory Rate 18 20 Blood Pressure 99/69 111/64 Pulse Oximetry 100 100 Oxygen Delivery Method Room Air Room Air BMI result Body Mass Index 23.3 Const General: cooperative, healthy appearing and no acute distress Orientation/consciousness: patient oriented x3 Limitations: no limitations [facility] Head: Yes normal to inspection and Yes atraumatic Ears: hearing grossly normal bilaterally General nose exam: Normal external nose present Face and sinus: Yes normal facial exam Mouth: no drooling Throat: Yes tonsils normal, Yes uvula midline, No peritonsillar mass and Yes posterior oropharynx abnormal (Mild erythema) Eyes General: appearance normal, both eyes and all related structures EOM: EOMs intact bilaterally Neck Neck: Yes normal visual inspection, Yes no meningeal signs, No supple and No anterior neck swelling Resp Effort & Inspection: normal respiratory effort, no respiratory distress and no stridor Cardio Rate: regular rate Skin Rashes: no rashes Wounds: no wounds Neuro General: patient oriented x3, tone normal and no meningeal signs Cranial nerves: Yes CN's II-XII intact bilaterally Gait exam (Neuro): Normal gait present Extrem General: Yes normal to inspection Course Course Course Narrative: This is a rapid medical exam performed by Leidy Roy PA-C. The patient is a 23-year-old male with a history of bipolar, ADHD, PTSD, prior esophageal foreign body, erosive esophagitis, who presents with sore throat x3 hours. Patient states he ate a piece of chicken, then developed discomfort after he began choking. Patient has a globus sensation. Denies preceding cough or cold symptoms no fevers. On exam his oropharynx is erythematous, his tonsils are prominent, uvula midline. No anterior cervical lymphadenopathy. Plan to screen a strep and viral panel, obtaining CT soft tissue of the neck to rule out foreign body. The patient was stable and can return to the waiting room pending his full medical assessment. -rapid strep negative -1500--CT soft tissue neck wo IV con IMPRESSION: Fluid and food contents within the lumen of the intrathoracic esophagus below the nimo. > 1501- GI, Dr. Burgos paged -[phone]-- Still no word from GI, re-paged x2 [phone]--spoke with Dr. Aubrey MCMILLAN, patient needs endoscopy > will go to [place] Medications Administered Discontinued Medications Generic Name Dose Route Start Last Admin Trade Name Jose Rq PRN Reason Stop Dose Admin Al Hydroxide/Mg Hydroxide 30 ml 10/06/24 15:01 10/06/24 16:45 Magnesium Hydrox/Alum Hydrox 30 Ml Oral.Susp PO 10/06/24 15:02 Not Given ONCE ONE Lidocaine HCl 15 ml 10/06/24 15:01 10/06/24 16:45 Lidocaine Hcl Viscous 2 % 15 Ml Solution MUCOUS MEM 10/06/24 15:02 Not Given ONCE ONE Medical Decision Making Medical Decision Making MDM Narrative: 23-year-old male with a past medical history bipolar, PTSD, ADHD, prior esophageal foreign body, presenting to the ED complaining of sore throat, foreign body sensation, & inability to tolerate p.o. 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 On exam vital signs stable, talking in complete sentences, nontoxic appearing, uvula midline, mild posterior oropharyngeal erythema, no evidence of LIFE ENRICHMENT DIRECTOR/retropharyngeal abscess. Lungs CTA, no stridor. Attempted p.o. trial however liquid immediately came up. Unable to tolerate. Concern for food bolus. Plan: Rapid strep, viral testing and CT ordered in triage Patient refusing IV glucagon Please refer to course for remaining clinical decision making, interpretation of labs/imaging results, and discussions with consultants and/or family members. Differential Diagnosis Differential Diagnoses: The differential diagnosis associated with the presentation includes As above Admission/Observation Consideration of admission/observation: Escalation of care including admission/observation considered Consult Healthcare Provider Management of the patient was discussed with: Software Quality Test Engineer (GI) Lab Data [facility] Lab Attestation statement: I reviewed the patient's lab results. 10/06/24 15:30 10/06/24 15:30 Labs: Lab Results 10/06/24 10/06/24 Range/Units 14:20 15:30 WBC 6.9 (4.8-10.8) X10*3/uL RBC 5.25 (4.60-5.80) X10*6/uL Hgb 15.3 (14.0-18.0) g/dl Hct 45.8 (42.0-52.0) % MCV 87.2 (80.0-98.0) fL MCH 29.1 (27.0-33.0) pg MCHC 33.4 (31.0-36.0) g/dl RDW 12.1 (11.0-16.0) % Plt Count 214 (160-400) X10*3/uL MPV 10.8 (9.4-12.4) fL Immature Gran % (Auto) 0.1 (0.0-0.4) % Neut % (Auto) 56.3 (45-73) % Lymph % (Auto) 27.2 (20-40) % [place] % (Auto) 9.6 (2-11) % Eos % (Auto) 5.8 H (0-4) % Baso % (Auto) 1.0 (0-2) % Lymph # (Auto) 1.9 (1.2-4.9) X10*3/uL [place] # (Auto) 0.7 (0.1-1.2) X10*3/uL Eos # (Auto) 0.4 (0.0-0.4) X10*3/uL Baso # (Auto) 0.1 (0.0-0.2) X10*3/uL Abs Immat Gran (auto) 0.01 (0.00-0.03) X10*3/uL Absolute Neuts (auto) 3.9 (2.0-8.3) x10*3/uL Absolute Nucleated RBC 0.000 (0.0-0.012) X10*3/uL Nucleated RBC % (auto) 0.0 (0.0-0.2) /100WBC PT 12.7 H (10.9-12.4) SEC INR 1.1 (0.9-1.1) Sodium 143 (135-145) mmol/L Potassium 4.3 (3.3-5.1) mmol/L Chloride 107 (96-108) mmol/L Carbon Dioxide 30 H (22-29) mmol/L Anion Gap 10 L (12-20) BUN 12 (9-16) mg/dL Creatinine 0.91 (0.5-1.4) mg/dL Estim Creat Clear Calc 126.2 Estimated GFR > 60 Random Glucose 94 (60-115) mg/dL Calcium 10.2 (8.4-10.2) mg/dL Influenza Type A (PCR) NEGATIVE (Negative) Influenza Type B (PCR) NEGATIVE (Negative) RSV RNA Qual (PCR) NEGATIVE (Negative) SARS-CoV-2 RNA (RT-PCR) NEGATIVE (Negative) S. pyogenes GrpA LIDA Negative (Negative) Independent Interpretation I performed an independent interpretation of an: CT Scan Radiology Impression Discussion of test interpretation with radiology: I have reviewed the radiologist's reading. External Record Review External record reviewed: Inpatient record, Office record, Outpatient record, Prior outpatient labs, Prior outpatient radiology, Primary care record and Outside ED record Tests considered The following testing was considered but not selected: As above Prescription Management I considered prescription management with: Pain Medication and Other Chronic Conditions Patient?s care impacted by: Other Social Determinants Patient?s care significantly limited by Social Determinants of Health including: Other Social Determinant of Health Discharge Plan Discharge Clinical Impression: Food bolus obstruction of intestine Patient Disposition: Xfer Other Transfer Details: OR Prescriptions: No Action dexmethylphenidate 20 mg capsule,ER biphasic 50-50 20 mg PO DAILY 30 Days Qty: 30 0RF Rx Instructions: Partial Fill upon patient request. dexmethylphenidate [Focalin] 5 mg tablet 10 mg PO DAILY@1400 30 Days Qty: 60 0RF Rx Instructions: Partial Fill upon patient request. nicotine (polacrilex) 4 mg Lozenge 4 mg buccal Q2H PRN (Reason: Nicotine Cravings) 30 Days Qty: 108 0RF hydroxyzine HCl 25 mg Tablet 25 mg PO Q6H PRN (Reason: Anxiety) 30 Days Qty: 90 1RF lithium carbonate 450 mg Tablet Extended Release 900 mg PO BEDTIME 30 Days Qty: 60 1RF clonidine HCl 0.1 mg Tablet 0.1 mg PO Q4H PRN (Reason: anxiety/insomnia) 30 Days Qty: 90 1RF Protocol: Hold for SBP< HOLD for SBP < : 90 lamotrigine 200 mg tablet 200 mg PO BEDTIME 30 Days Qty: 30 1RF olanzapine 5 mg Tablet 5 mg PO TID PRN (Reason: agitation/hypomania) 30 Days Qty: 60 1RF fluoxetine 10 mg capsule 10 mg PO DAILY 30 Days Qty: 30 0RF lactase [Dairy-Aid] 3,000 unit Tablet 3,000 unit PO TIDWM 30 Days Qty: 90 1RF guanfacine 2 mg tablet 2 mg PO BEDTIME 30 Days Qty: 30 1RF melatonin 10 mg tablet 10 mg PO BEDTIME PRN (Reason: sleep) 30 Days Qty: 30 1RF Print Language: Swazi
[2024-10-06 14:53] LABS: IDNOW Serial# 55D5AD1C; Strep A Nucleic Acid Negative (Negative)
[2024-10-06 15:20] LABS: Influenza A PCR NEGATIVE (Negative); Influenza B PCR NEGATIVE (Negative); Resp Syncy Virus RNA Qual PCR NEGATIVE (Negative); SARS COV2 PCR INHOUSE NEGATIVE (Negative)
[2024-10-06 15:35] LABS: MANUAL DIFF FLAG NO
[2024-10-06 15:36] LABS: Basophils Absolute Auto 0.1 X10*3/uL (0.0-0.2); Eosinophils Absolute Auto 0.4 X10*3/uL (0.0-0.4); Eosinophils Percent Auto 5.8 % (0-4); Hematocrit 45.8 % (42.0-52.0); Hemoglobin 15.3 g/dl (14.0-18.0); Imm Gran Abs Auto 0.01 X10*3/uL (0.00-0.03); Imm Gran Pct Auto 0.1 % (0.0-0.4); Lymphocytes Absolute Auto 1.9 X10*3/uL (1.2-4.9); Lymphocytes Percent Auto 27.2 % (20-40); Mean Corpuscular HGB Conc 33.4 g/dl (31.0-36.0); Mean Corpuscular Hemoglobin 29.1 pg (27.0-33.0); Mean Corpuscular Volume 87.2 fL (80.0-98.0); Mean Platelet Volume 10.8 fL (9.4-12.4); Monocytes Absolute Auto 0.7 X10*3/uL (0.1-1.2); Monocytes Percent Auto 9.6 % (2-11); Neutrophils Absolute Auto 3.9 x10*3/uL (2.0-8.3); Neutrophils Percent Auto 56.3 % (45-73); Platelet Count 214 X10*3/uL (160-400); Red Blood Count 5.25 X10*6/uL (4.60-5.80); Red Cell Distribution Width 12.1 % (11.0-16.0); White Blood Count 6.9 X10*3/uL (4.8-10.8)
[2024-10-06 15:41] LABS: INTERNATIONAL NORM RATIO 1.1 (0.9-1.1); Prothrombin Time 12.7 SEC (10.9-12.4)
[2024-10-06 15:54] LABS: Anion Gap 10 (12-20); Blood Urea Nitrogen 12 mg/dL (9-16); Calcium 10.2 mg/dL (8.4-10.2); Carbon Dioxide 30 mmol/L (22-29); Chloride 107 mmol/L (96-108); Creatinine Clr Calc Pharmacy 126.2; Estimated Glomerular Filt Rate > 60; Glucose Random 94 mg/dL (60-115); Potassium 4.3 mmol/L (3.3-5.1); Sodium 143 mmol/L (135-145)
--- NOTE | 2024-10-06 16:46 | PC.NURSE ---
pt declined oral meds, provider aware.
--- NOTE | 2024-10-06 17:02 | PC.NURSE ---
RN-RN report given to SSS.
[2024-10-06] MEDS: 0.9 % Sodium Chloride 1,000 ML 999 ML IV (17:10)
--- NOTE | 2024-10-06 17:19 | HO.ANESPROP2 ---
[facility] Active Problems Active Problems: All Active Problems Food bolus obstruction of intestine (Acute) Bipolar I disorder (Acute) Attention deficit hyperactivity disorder (ADHD) (Acute) Erosive esophagitis (Acute) Esophageal obstruction due to food impaction (Acute) Foreign body in cervical esophagus (Acute) PTSD (post-traumatic stress disorder) (Acute) Cannabis abuse (Acute) Past Medical History Medical History Bipolar II disorder Bipolar I disorder PTSD (post-traumatic stress disorder) No known health problems Family History Family history of problems with anesthesia: No Surgical History History of Problems with Anesthesia: No Social History Social History Household Members: None Housing: Homeless Do you presently have visiting nurse or other home services: No Alcohol intake: current Alcohol intake frequency: holidays/special occasions only Patient Tobacco Use Status: Current everyday Tobacco user Tobacco use type: Cigarette Cigarette Packs Per Day: 0 Cigarettes Per Day: 5 Years Smoked: 3 e-Cigarette/Vaping Use: Never Used Second Hand Smoke Exposure: Yes Substance Use Type: Marijuana Advance Directives: No Advance Directives Information Provided: Yes service: No Sexual orientation: poly-amorous Meds Allergies Allergy/AdvReac Type Severity Reaction Status Date / Time No Known Allergies Allergy Verified 10/06/24 13:50 [No Known Allergies*] Exam Height,Weight and Vital Signs: Height 5 ft 9 in Weight 71.6 kg Last Vital Signs Temp 97 F 10/06/24 17:04 Pulse 67 10/06/24 17:04 Resp 16 10/06/24 17:04 BP 118/77 10/06/24 17:04 Pulse Ox 100 10/06/24 17:04 O2 Del Method Room Air 10/06/24 17:04 Pertinent Lab Results Pertinent Lab Results: Laboratory Tests 10/06/24 10/06/24 14:20 15:30 WBC 6.9 RBC 5.25 Hgb 15.3 Hct 45.8 MCV 87.2 MCH 29.1 MCHC 33.4 RDW 12.1 Plt Count 214 MPV 10.8 Immature Gran % (Auto) 0.1 Neut % (Auto) 56.3 Lymph % (Auto) 27.2 [place] % (Auto) 9.6 Eos % (Auto) 5.8 H Baso % (Auto) 1.0 Lymph # (Auto) 1.9 [place] # (Auto) 0.7 Eos # (Auto) 0.4 Baso # (Auto) 0.1 Abs Immat Gran (auto) 0.01 Absolute Neuts (auto) 3.9 Absolute Nucleated RBC 0.000 Nucleated RBC % (auto) 0.0 PT 12.7 H INR 1.1 Sodium 143 Potassium 4.3 Chloride 107 Carbon Dioxide 30 H Anion Gap 10 L BUN 12 Creatinine 0.91 Estim Creat Clear Calc 126.2 Estimated GFR > 60 Random Glucose 94 Calcium 10.2 Influenza Type A (PCR) NEGATIVE Influenza Type B (PCR) NEGATIVE RSV RNA Qual (PCR) NEGATIVE SARS-CoV-2 RNA (RT-PCR) NEGATIVE S. pyogenes GrpA LIDA Negative Airway Mallampati Class: II TM Dist: >3cm Neck ROM: Full Heart: rrr Lungs: cta Assessment and Plan Assessment Anesthesia Assessment: Anesthesia Plan Discussed and Chart Reviewed Final Anesthetic Review Family History of Problems with Anesthesia: No History of Problems with Anesthesia: No NPO: Yes ASA Class: II Final Preanesthetic Review: No Changes in Pt Med Stat, Meds/Allgs Chart Reviewed and Consent Obtained/Reviewed Patient Risk: Intermediate Procedure Risk: Intermediate Anesthetic Plan Anesthetic Plan: MAC: Disposition: Standard PACU
--- NOTE | 2024-10-06 17:24 | MHC.SHP ---
Pre-Procedural Eval Section A - 24 Hr Update-Section A only Date of Service: 10/06/24 The patient is an INPATIENT: No Changes since office visit: Yes Cold of Flu in the past 2 weeks, Yes New Medical Problems, Yes Changes in Medication and Yes Patient answered all questions The patient has been examined within 24 hours of the surgical procedure. The History & Physical has been completed within 30 days and I have reviewed it.: Yes Section B - Complete if H&P > 30 days Chief Complaint: Throat Pain, Can't Swallow, Irritated Throat Allergies: Allergies Allergy/AdvReac Type Severity Reaction Status Date / Time No Known Allergies Allergy Verified 10/06/24 17:24 [No Known Allergies*] Plan I have reviewed the history and physical and performed a pertinent physical examination on my patient. No changes have occurred unless specified. Time Spent With Patient Time: Total time managing care of this patient today ____ minutes.
--- NOTE | 2024-10-06 18:15 | OP_ITS ---
DATE OF SERVICE: 10/06/2024 SURGEON: Jonathan Burgos MD INDICATIONS: Esophageal foreign body. PREOPERATIVE DIAGNOSIS: POSTOPERATIVE DIAGNOSIS: PROCEDURE PERFORMED: Upper endoscopy. ESTIMATED BLOOD LOSS: COMPLICATIONS: ANESTHESIA: Monitored anesthesia care. ASSISTANTS: SPECIMENS: DESCRIPTION OF PROCEDURE: A history and physical was performed. The risks and benefits of the procedure were explained to the patient. Informed consent was obtained. The patient was placed in the left lateral decubitus position. The Olympus video gastroscope was introduced into the esophagus, stomach, and duodenum. Examination was performed. The scope was removed. He tolerated the procedure well and was returned to the recovery area in stable condition. FINDINGS: Esophagus: There was a small amount of residual food material in the esophagus with some mild irritation at the EG junction. No stricture was identified. The scope easily passed into the stomach. Stomach: The stomach showed no evidence of masses or ulcers. At the pylorus was a large piece of meat, which was pushed through the pylorus into the second portion of the duodenum. Duodenum: The bulb and 2nd portion were normal. IMPRESSION: 1. Esophageal foreign body, resolves. 2. Mild esophagitis, likely traumatic. RECOMMENDATION: 1. Follow up as needed. 2. Soft diet for 24 hours. MD ROMANA Gonzalez/MODL / [id number] MTDD
--- NOTE | 2024-10-06 20:41 | CONS_ITS ---
DATE OF SERVICE: 10/06/2024 REFERRING PHYSICIAN: Lupe Dick REASON FOR CONSULTATION: Esophageal obstruction. HISTORY OF PRESENT ILLNESS: The patient is a pleasant 23-year-old man who presented to the emergency room with symptoms of esophageal obstruction, which started several hours prior to admission after he ate chicken. He has a history of previous obstructions and underwent upper endoscopy in October 2023 for a similar problem. Biopsies at that time from the esophagus showed atypical squamous epithelium with inflammation, erosion, and necrosis. He also had active esophagitis. Followup examination was recommended. However, the patient did not follow up. PAST MEDICAL HISTORY: 1. Bipolar disorder. 2. PTSD. 3. ADHD. 4. Esophageal foreign body. CURRENT MEDICATIONS: Current medication list is reviewed in the chart. ALLERGIES: THERE ARE NONE REPORTED. FAMILY HISTORY: This is reviewed with the patient and is negative for esophageal disease. SOCIAL HISTORY: He does use alcohol and tobacco as well as marijuana. REVIEW OF SYSTEMS: SKIN: No pruritus. HEENT: Negative. CARDIOPULMONARY: No shortness of breath or chest pain. GASTROINTESTINAL: As above. GENITOURINARY: Negative. NEUROPSYCHIATRIC: Negative. PHYSICAL EXAMINATION: GENERAL: Shows a pleasant male, lying comfortably in the stretcher. VITAL SIGNS: Stable. SKIN: Anicteric. HEENT: Shows no scleral icterus. NECK: Without lymphadenopathy or thyromegaly. LUNGS: Clear. HEART: Shows a regular rate and rhythm. S1, S2. No murmur. ABDOMEN: Soft without focal masses or tenderness. Bowel sounds are present. No organomegaly is noted. EXTREMITIES: Without edema. IMPRESSION: Esophageal foreign body. PLAN: Upper endoscopy. Risks and benefits of the procedure have been discussed with the patient who understands and agrees to proceed. MD ROMANA Gonzalez/ROSA / [id number]
== END 2024-10-06 19:27 | disposition home or self-care (01) ==
LOC: HO.ED 16:56 → HO.SSS 17:16
PROVIDERS: Physician Assistant; Physician Assistant Medical; Emergency Provider Emergency Medicine; Visit Provider Internal Medicine Gastroenterology
PROC: 0DJ08ZZ Inspection of Upper Intestinal Tract, Via Natural or Artificial Opening Endoscopic (ICD-10-PCS; CPT 43235; principal; 2024-10-06 17:30)
DX: T18.128A Food in esophagus causing other injury, initial encounter (principal); W44.F3XA Food entering into or through a natural orifice, initial encounter; K20.80 Other esophagitis without bleeding; R79.1 Abnormal coagulation profile; F90.9 Attention-deficit hyperactivity disorder, unspecified type; F43.10 Post-traumatic stress disorder, unspecified; F31.9 Bipolar disorder, unspecified; F12.10 Cannabis abuse, uncomplicated; Z03.818 Encounter for observation for suspected exposure to other biological agents ruled out; F17.210 Nicotine dependence, cigarettes, uncomplicated; Z79.899 Other long term (current) drug therapy; Y93.9 Activity, unspecified; Y92.9 Unspecified place or not applicable; Y99.9 Unspecified external cause status
CPT/HCPCS: 43235; 0241U; 36415; 70490; 80048; 85025; 85610; 87651; 99283; 99285; J2003; J2704; J3010

== ENCOUNTER → 2024-10-06 13:52 | Outpatient (BNV) | payer BC, MEDICAID, SELFPAY | PROVIDERS: Emergency Provider Emergency Medicine; Visit Provider Radiology Diagnostic Radiology | DX: M79.89 Other specified soft tissue disorders (principal) | CPT/HCPCS: 70490 ==

== ENCOUNTER 2025-07-12 12:44 | Outpatient (REF) | payer BC, MEDICAID, SELFPAY ==
[2025-07-12 13:10] LABS: MANUAL DIFF FLAG NO
--- OUTSIDE RECORDS SUMMARY | 2025-07-12 13:46 | XMS_ITS | Clinical Summary ---
Author Organization [facility] [address] [place] [address] [place] [phone] Phone Care Team Providers Care Engineer Specialist Name Role Phone Marlon Gallegos MD Primary Care Provider [phone] Medications cloNIDine (CATAPRES) 0.1 mg tablet Take 1 tablet (0.1 mg total) by mouth 2 (two) times a day if needed (anxiety). From psychiatrist. 08/19/19 25 Active lamoTRIgine (LaMICtal) 100 mg tablet Take 1 tablet (100 mg total) by mouth 1 (one) time each day. From psychiatrist 08/19/19 25 Active lithium 300 mg tablet Take 1 tablet (300 mg total) by mouth at bedtime. From psychiatrist 08/19/19 25 Active OLANZapine (ZyPREXA ZYDIS) 5 mg disintegrating tablet Dissolve 1 tablet (5 mg total) on top of the tongue 2 (two) times a day if needed. From psychiatrist. 08/19/19 25 Active Active Problems Problem Noted Date Diagnosed Date Bipolar 2 disorder 10/10/2022 COVID-19 virus infection 11/12/2019 Overview (06/20/2024): 11/07 - fever, headache, body aches, + test at [facility] 11/10/19 Fever resolved 11/15/19 Flat foot 12/29/2018 Overview (06/20/2024): 12/08 - no sx Headache disorder 12/29/2018 Overview (06/20/2024): 12/06 - triggers discussed, recheck with headache diary one month - not done 12/08 - occ headaches Nasal congestion 12/29/2018 Overview (06/20/2024): 01/06 - xray showed no deviated septum; trial flonase 12/08 - improved Depression 11/26/2016 Overview (06/20/2024): 12/04 - ref for therapy 01/05 - referred to [facility] for IHT, not done due to insurance 01/06 - advised counseling 12/08 -mild depression, therapy advised Acne vulgaris 05/25/2015 Overview (06/20/2024): 06/04 - minocycline and topical tretinoin 12/04 - restart above meds and refer to Derm Derm 01/05 - switched from minocycline to doxycycline; recheck 3 months 10. - Derm, to start accutane, completed rx 11/06 01/06 - Derm, adapalene 3 x a week to prevent recurrence 12/08 - resolved, no meds [id number]-zc-nodu spots 10/29/2006 Overview (06/20/2024): 3 noted on legs and neck at age 4 mos Acute suppurative otitis med ia without spontaneous rupture of ear drum 10/29/2006 Overview (06/20/2024): 09/19, 05/23, 08/25, 09/22, 04/25 O update Immunizations Immunization Administration Dates Next Due DTaP (Infanrix) 6wks to less than 7yo ,12/08/2002,07/29/2001,05/13,03/04/2001 [id number] (Pentacel) 2mo to less than 5yo 12/01/2002,07/29/2001,05/13/2001,03/04 HPV 9-valent (Gardisil) 9yo to less than 46yo 11/26/2016,08/04/2015,05/25/2015 Hepatitis B Pediatric (Enger ix B; Recombivax HB) to less than 20 yo 10/05/2001,05/20/2001,01/02/2001 IPV Inactivated polio (Ipol) 6wks and older 09/03/2005,12/28/2001,10/05/2001,05/13,03/04/2001 Influenza trivalent, 0.5mL, preservative free (Fluarix; FluLaval; Fluzone) ages 6mo and older (Afluria) 3 years and older 09/09/2012,08/30/2011 Influenza, live, intranasal, trivalent (FluMist) 2yo to less than 50yo 05/25/2015,04/12/2014 MMR, measles mumps and rubel la Live (Priorix; M-M-R II) 12mo and older 09/03/2005,12/01/2002 Meningococcal MCV4P 12/09/2017,09/09/2012 Pneumococcal Conjugate Vacci ne, 7 Valent 12/08/2002,07/29/2001,05/13/2001,03/04 Tdap Tetanus diptheria acell ular pertussis (Boostrix; Adacel) 7yo and older 10/09/2022,09/09/2012 Varicella live (Varivax) 12m o and older 10/31/2006,12/01/2002 Medical History Medical History Date Comments Contact dermatitis and other eczema due to other specified agent DX:Contact dermatitis and ot her eczema due to other specified agent; COMMENT: age 9 mos Other dental caries 10/29/2006 DX:Other den alexander caries; COMMENT: repair under general anesthesia 03/26 Allergic rhinitis 10/25/2008 DX:Allergic rh initis; COMMENT: see resolved problems Unspecified asthma(493.90) 10/29/2006 DX:Un specified asthma(493.90); COMMENT: see resolved problems Constipation 11/03/2007 DX:Constipation; COMMENT: see resolved problems Expressive language disorder 10/29/2006 DX: Expressive language disorder; COMMENT: see resolved problems Nocturnal enuresis 09/01/2012 DX:Nocturnal enuresis; COMMENT: resolved age 11 Tongue tie 10/29/2006 DX:Tongue tie; C OMMENT: see resolved problem Avulsion fracture of hip (CM S/HCC V24, CMS/HCC V28) 05/05 DX:Avulsion fracture of hip (HCC); COMMENT: NEOS Family History Medical History Relation Name Comments Other: eating disorder Brother Diabetes Maternal Grandmother Allergies Mother pcn Asthma Mother Depression Mother Other: Other Mother ADHD Other cancer Other Relation Name Status Comments Brother Alive 2001 dena Father Alive 1977 Maternal Grandmother Alive Mother Alive 1980 Other Sister 1 Alive Sister 2 Alive Social History Tobacco Use Types Packs/Day Years Used Date Smoking Tobacco: Former Cigarettes 0.2 Q uit: 09/18/2022 Smokeless Tobacco: Never Tobacco Cessation:Counseling Given: Not Answered Alcohol Use Standard Drinks/Week Comments No 0 (1 standard drink = 0.6 oz pur e alcohol) Sex and Gender Information Value Date Recorded Sex Assigned at Not on file Legal Sex Male 4:08 PM EST Gender Identity Not on file Sexual Orientation Not on file Last Filed Vital Signs Vital Sign Reading Time Taken Comments Blood Pressure 126/80 08/19/2024 4:10 PM EST Pulse 74 08/19/2024 4:10 PM EST Temperature 36.9 C (98.4 F) 08/19/2024 4:10 PM EST Respiratory Rate 16 08/19/2024 4:10 PM EST Oxygen Saturation - - Inhaled Oxygen Concentration - - Weight 73 kg (161 lb) 08/19/2024 4:10 PM EST Height 172.7 cm (5' 8 ) 08/19/2024 4:10 PM EST Body Mass Index 24.48 08/19/2024 4:10 PM EST Plan of Treatment Health Maintenance Due Date Last Done Comments Social Influencers of Health Screening 06/29/2022 Depression Screening 07/21/2024 COVID-19 Vaccine ( season) 2025 03/13/2021 Influenza Vaccine (#1) 2025 5, 04/12/2014, 09/09/2012, Additional history exists Cholesterol Screening (Lipid Panel) 10/10/2027 10/09/2022 DTaP,Tdap,and Td Vaccines (8 - Td or Tdap) 10/09/2032 10/09/2022, 09/09/2012, 09/03/2005, Additional history exists RSV Immunization Adult Patients (1 - 1-dose 75+ series) 01/01/2076 Hepatitis B Vaccines Completed 10/05/2001, 05/20/2001, 01/02/2001 HIB Vaccines Completed 12/01/2002, 11/18, 07/29/2001, Additional history exists Pneumococcal Vaccine: Pediatrics (0 to 5 Years) and At-Risk Patients (6 to 49 Years) Completed 12/08/2002, 07/29/2001, 05/13/2001, Additional history exists IPV Vaccines Completed 09/03/2005, 11/18, 12/28/2001, Additional history exists MMR Vaccines Completed 09/03/2005, 12/01/2002 Varicella Vaccines Completed 10/31/2006, 12/01/2002 HPV Vaccines Completed 11/26/2016, 07/21, 05/25/2015 Meningococcal ACWY Vaccine Completed 12/09/2017, HIV Screening Completed 08/19/2024 Hepatitis C Screening Completed 08/19/2024, 021 Hepatitis A Vaccines Aged Out No long er eligible based on patient's age to complete this topic Medicare Annual Wellness Visit Discontinued Meningococcal B Vaccine Aged Out No l onger eligible based on patient's age to complete this topic RSV Immunization Patients Under 20 months Aged Out No longer eligible based on patient's age to complete this topic Procedures Procedure Name Priority Date/Time Associated Diagnosis Comments HEPATITIS C ANTIBODY Routine 08/19/2024 4:53 PM EST Adult general medical examination Bipolar 2 disorder ([facility] V24, [facility] V28) Screening cholesterol level Screening for diabetes mellitus Screening examination for STD (sexually transmitted disease) HIV 1, 2 ANTIBODY, P24 ANTIGEN WITH REFLEX TO DIFFERENTIATION Routine 08/19/2024 4:53 PM EST Adult general medical examination Bipolar 2 disorder ([facility] V24, [facility] V28) Screening cholesterol level Screening for diabetes mellitus Screening examination for STD (sexually transmitted disease) LIPID PANEL Routine 10/09/2022 from Last 3 Months or Most Recently Relevant to Health Maintenance Results * Hepatitis C antibody (08/19/2024 4:53 PM EST) Hepatitis C Antibody Negative Negative LAB CHEMISTRY METHOD 08/19/2024 7:25 PM EST [facility] Blood Venous blood specimen / Unknown Venipuncture / Unknown 08/19/2024 4:53 PM EST 08/19/2024 4:53 PM EST Jena Escobedouohattie CAUSEY LAB BLOOD ORDERABLES Fin al Result Performing Organization Address [facility]/ZIP Co de Phone Number [facility] [address] [place] [address], * HIV 1,2 antibody, p24 antigen with reflex to differentiation (08/19/2024 4:53 PM EST) Pathologist [facility] HIV Combo AB/AG Negative Negative LAB CHEMISTRY METHOD 08/19/2024 7:26 PM EST [facility] Blood Venous blood specimen / Unknown Venipuncture / Unknown 08/19/2024 4:53 PM EST 08/19/2024 4:53 PM EST Narrative [facility] - 08/19/2024 7:26 PM EST This assay is a 4th generation assay allowing for earlier detection of HIV infection by detecting the presence of the HIV-1 p24 antigen as well as the traditional antibodies to HIV type 1 (including group O) and type 2. Use of a 4th generation assay is the current CDC recommendation for HIV screening. Jena CAUSEY LAB BLOOD ORDERABLES Fin al Result Performing Organization Address [facility]/ZIP Co de Phone Number [facility] [address] [place] [address], [place] [phone] * Lipid panel (10/09/2022) Pathologist [facility] LDL/HDL Ratio 3 0 - 4 Triglycerides 71 0 - 150 mg/dL Cholesterol 142 0 - 200 mg/dL HDL 44 >=40 mg/dL LDL Cholesterol 84 0 - 100 mg/dL Blood Venous blood specimen / Unknown Historical Provider LAB BLOOD ORDERABLES Halley l Result from Last 3 Months or Most Recently Relevant to Health Maintenance Insurance MEDICAID - [place] MEDICARE [facility]) Care Teams Engineer Specialist Relationship Specialty Start Date End Date Marlon Gallegos MD [address] [place] [address] PCP - General Internal Medicine 12/24/21
--- OUTSIDE RECORDS SUMMARY | 2025-07-12 13:46 | XMS_ITS | Encounter Summary ---
Author Organization [facility] Address [address] [place] [address] Phone Care Team Providers Care Distilling Department Supervisor Name Role Phone Pcp, Unknown Primary Care Provider Unavailabl e Encounter Details Date Type Department Care Team ([facility] st Contact Info) Description 02/18/2025 Procedure Pass [facility]oscopy Admitting Dept Virtual Department [address] [place] [address] Social History Tobacco Use Types Packs/Day Years Used Date Smoking Tobacco: Never Assessed Education Answer Date Recorded Are you interested in more education? Not on nancy e 02/18/2025 Are you concerned about learning? Not on file 02/18/2025 No 02/18/2025 No 02/18/2025 Food Answer Date Recorded Within the past 6 months we worried whether our food would run out before we got money to buy more. Never True 02/18/2025 Within the past 6 months the food we bought just didn't last and we didn't have enough money to get more. Never True Residential Stability Answer Date Recor ded What is your housing situation today? I have michael sing 02/18/2025 How many times have you moved in the past 12 mon ths? One time 02/18/2025 Paying for Meds Answer Date Recorded Do you have trouble paying for medicines? No 02/18/2025 Paying Utility Bills Answer Date Record ed Do you have trouble paying your heating or elect ricity bill? No 02/18/2025 Transportation Answer Date Recorded Has the lack of transportati on kept you from medical appointments or from getting medications? No 02/18/2025 Digital Access Answer Date Recorded No 02/18/2025 Yes 02/18/2025 Do you have reliable internet access at home? Ye s 02/18/2025 Do you have a device (e.g., phone, tablet, computer) with a working camera? Yes 02/18/2025 Intimate Partner Violence Answer Date R ecorded Are you denied basic needs s uch as food, clothing, or medical care? No 02/18/2025 In the past 12 months have y ou been in a relationship with a person who hurts, threatens, or tries to control you? No 02/18/2025 Are you denied basic needs s uch as food, clothing, or medical care? No 02/18/2025 In the past 12 months have y ou been in a relationship with a person who hurts, threatens, or tries to control you? No 02/18/2025 Sex and Gender Information Value Date Recorded Sex Assigned at Not on file Legal Sex Male 6:39 PM EDT Gender Identity Not on file Sexual Orientation Not on file documented as of this encounter Plan of Treatment Upcoming Encounters Date Type Department Care Team (Late st Contact Info) Description 12/01/2025 1:00 PM EDT Office Visit [facility] [address] [place] [address] Kelli Knight MD [address], [address] [place] [address] [email or web address] documented as of this encounter Visit Diagnoses Not on filedocumented in this encounter Care Teams Distilling Department Supervisor Relationship Specialty Start Date End Date Pcp, Unknown PCP - General 02/18/25 documented as of this encounter Additional Source Comments The information contained in this document represents components of the legal health record. It is not the complete legal health record.[facility]
--- OUTSIDE RECORDS SUMMARY | 2025-07-12 13:46 | XMS_ITS | Encounter Summary ---
Author Organization [facility] Address [address] [place] [address] Care Team Providers Care Energy Economist Name Role Phone Marlon Gallegos MD Primary Care Provider [phone] Encounter Details Date Type Department Care Team (Late st Contact Info) Description 10/07/2024 Referral Triage [facility] [address] [place] [address] Santos, Ekellson Social History Tobacco Use Types Packs/Day Years Used Date Smoking Tobacco: Former Cigarettes 0.2 Q uit: 09/18/2022 Smokeless Tobacco: Never Alcohol Use Standard Drinks/Week Comments No 0 (1 standard drink = 0.6 oz pur e alcohol) Sex and Gender Information Value Date Recorded Sex Assigned at Not on file Legal Sex Male 4:08 PM EST Gender Identity Not on file Sexual Orientation Not on file documented as of this encounter Plan of Treatment Not on file documented as of this encounter Visit Diagnoses Not on filedocumented in this encounter Care Teams Energy Economist Relationship Specialty Start Date End Date Marlon Gallegos MD [address] [place] [address] PCP - General Internal Medicine 12/24/21 documented as of this encounter
--- OUTSIDE RECORDS SUMMARY | 2025-07-12 13:46 | XMS_ITS | Clinical Summary ---
Author Organization [facility] Address [address] [place] [phone] Phone Care Team Providers Care Cut Out Operator Name Role Phone Pcp, Unknown Primary Care Provider Unavailabl e Allergies No known active allergies Medications No known medications Social History Tobacco Use Types Packs/Day Years [...] have you moved in the past 12 fri ths? One time 02/18/2025 Paying for Meds [...] Sign Reading Time Taken Comments Blood Pressure 122/75 02/18/2025 10:22 PM EDT Pulse 71 02/18/2025 10:22 PM EDT Temperature 35.5 C (95.9 F) 02/18/2025 10:22 PM EDT Respiratory Rate 16 02/18/2025 10:22 PM EDT Oxygen Saturation 99% 02/18/2025 10:22 PM EDT Inhaled Oxygen Concentration 21% 02/18/2025 8 :52 PM EDT Weight 69.9 kg (154 lb) 02/18/2025 6:41 PM EDT Height 172.7 cm (5' 8 ) 02/18/2025 6:41 PM EDT Body Mass Index 23.42 02/18/2025 6:41 PM EDT Plan of Treatment Upcoming Encounters Date Type Department Care Team (Late st Contact Info) Description 12/01/2025 1:00 PM EDT Office Visit [facility] [address] [place] [address] Kelli Knight MD [address] [facility], [address] [place] [address] [email or web address] Due Date Last Done Comments Adult Td,Tdap Booster 2000 DEPRESSION SCREENING 2012 SMOKING Hx and SMOKELESS TOBACCO SCREENING 2013 HPV VACCINES (1 - Male 3-dos e series) 01/01/2016 HEPATITIS C SCREENING 2018 HIV ONE-TIME SCREENING (18-6 5 YEARS) 2018 INFLUENZA VACCINE (#1) 2025 COVID-19 VACCINE (1 - 2024-2 6 season) 2025 MENINGOCOCCAL VACCINES (ACWY) Completed , 09/09/2012 HEPATITIS A VACCINES Aged Out No long er eligible based on patient's age to complete this topic HIB VACCINES Aged Out No longer eligi ble based on patient's age to complete this topic MENINGOCOCCAL VACCINES (B) Aged Out N o longer eligible based on patient's age to complete this topic PNEUMOCOCCAL VACCINES (0-49 years) Aged Out No longer eligible b ased on patient's age to complete this topic Medical Devices Not on file Insurance MEDICARE PART A & B [facility] Care Teams Cut Out Operator Relationship Specialty Start Date End Date Pcp, Unknown PCP - General 02/18/25 Additional Source Comments The information contained in this document represents components of the legal health record. It is not the complete legal health record.[facility]
[2025-07-12 14:03] LABS: Hematocrit 44.6 % (42.0-52.0); Hemoglobin 14.8 g/dl (14.0-18.0); Imm Gran Abs Auto 0.02 X10*3/uL (0.00-0.03); Imm Gran Pct Auto 0.2 % (0.0-0.4); Lymphocytes Absolute Auto 2.0 X10*3/uL (1.2-4.9); Mean Corpuscular HGB Conc 33.2 g/dl (31.0-36.0); Mean Corpuscular Hemoglobin 29.5 pg (27.0-33.0); Mean Corpuscular Volume 89.0 fL (80.0-98.0); NRBC Abs Auto 0.000 X10*3/uL (0.0-0.012); NRBC Pct Auto 0.0 /100WBC (0.0-0.2); Platelet Count 169 X10*3/uL (160-400); Red Blood Count 5.01 X10*6/uL (4.60-5.80); White Blood Count 8.8 X10*3/uL (4.8-10.8)
[2025-07-12 14:24] LABS: Cannabinoid Screen Urine Not Detected (Not Detect)
[2025-07-12 14:29] LABS: Lithium 0.17 mmol/L (0.60-1.20)
[2025-07-12 14:50] LABS: Alanine Aminotransferase 18 U/L (0-40); Albumin Level 5.2 g/dL (3.5-5.0); Alkaline Phosphatase 61 U/L (39-117); Anion Gap 12 (12-20); Aspartate Amino Transferase 23 U/L (5-37); Blood Urea Nitrogen 18 mg/dL (9-16); Calcium 9.9 mg/dL (8.4-10.2); Carbon Dioxide 29 mmol/L (22-29); Chloride 106 mmol/L (96-108); Estimated Glomerular Filt Rate > 60; Potassium 4.3 mmol/L (3.3-5.1); Sodium 143 mmol/L (135-145); Total Protein 7.6 g/dL (6.5-8.0)
[2025-07-12 14:57] LABS: Thyroid Stimulating Hormone 1.95 uIU/mL (0.32-4.0)
== END 2025-07-12 12:45 | disposition home or self-care (01) ==
LOC: HO.LAB 12:44
PROVIDERS: Visit Provider Nurse Practitioner Psychiatric/Mental Health
DX: Z79.899 Other long term (current) drug therapy (principal)
CPT/HCPCS: 80053; 80178; 80307; 84443; 85025